=== PATIENT | male | born 1960 | race Caucasian/White ===

== ENCOUNTER 2023-12-28 11:20 | Outpatient (RCR) | payer MEDICARE, OTHER, SELFPAY ==
[2023-12-02 12:34] LABS: Glucose - Point of Care 110 mg/dl (70-99)
[2023-12-02 13:13] LABS: Glucose - Point of Care 118 mg/dl (70-99)
[2023-12-07 11:00] LABS: Glucose - Point of Care 114 mg/dl (70-99)
[2023-12-07 11:28] LABS: Glucose - Point of Care 115 mg/dl (70-99)
[2023-12-09 11:07] LABS: Glucose - Point of Care 155 mg/dl (70-99)
[2023-12-09 11:45] LABS: Glucose - Point of Care 99 mg/dl (70-99)
[2023-12-12 11:06] LABS: Glucose - Point of Care 106 mg/dl (70-99)
[2023-12-12 12:01] LABS: Glucose - Point of Care 103 mg/dl (70-99)
[2023-12-19 10:53] LABS: Glucose - Point of Care 163 mg/dl (70-99)
[2023-12-19 11:38] LABS: Glucose - Point of Care 106 mg/dl (70-99)
[2023-12-21 10:51] LABS: Glucose - Point of Care 103 mg/dl (70-99)
[2023-12-21 11:44] LABS: Glucose - Point of Care 94 mg/dl (70-99)
== END 2023-12-28 23:59 | disposition home or self-care (01) ==
LOC: CRHB 11:20
PROVIDERS: ATTENDING PHYSICIAN Surgery Vascular Surgery
DX: I70.711 Atherosclerosis of other type of bypass graft(s) of the extremities with intermittent claudication, right leg (principal); I25.10 Atherosclerotic heart disease of native coronary artery without angina pectoris; Z95.5 Presence of coronary angioplasty implant and graft
CPT/HCPCS: 82962; 93668

== ENCOUNTER 2024-01-16 11:00 | Outpatient (RCR) | payer MEDICARE, OTHER, SELFPAY | END 2024-01-16 23:59 | disposition home or self-care (01) | LOC: CRHB 11:00 | PROVIDERS: ATTENDING PHYSICIAN Surgery Vascular Surgery | DX: I70.711 Atherosclerosis of other type of bypass graft(s) of the extremities with intermittent claudication, right leg (principal); I25.10 Atherosclerotic heart disease of native coronary artery without angina pectoris; Z95.5 Presence of coronary angioplasty implant and graft | CPT/HCPCS: 93668 ==

== ENCOUNTER 2024-01-17 15:58 | Inpatient (IN) | payer MEDICARE, OTHER, SELFPAY ==
[2024-01-16] VITALS (10 sets, daily range): BP systolic 145–177; BP diastolic 77–84; BMI 26.8; BMI 25.4
--- NOTE | 2024-01-16 12:58 | ED.GENMED ---
History of Present Illness
General
Chief Complaint: Chest Pain
Source: patient
Exam Limitations: none
Time Seen by Provider: 01/16/24 12:06
Nursing documentation reviewed up to this point in time: agreed with
Travel History
Have you had any contact with someone who has COVID-19?: No
Do you have any symptoms of coronavirus? Fever > 100 degrees, chills, cough, shortness of breath, sore throat, loss of taste or smell, muscle aches, or headache?: No
History of Present Illness
History of Present Illness:
63-year-old male with history of CKD, NIDDM, HTN, NC with a cardiac stent in 2004 states he goes to cardiac rehab for PAD diagnosed in 09/2023. Patient was at cardiac rehab today on the elliptical machine at 11:00, felt he was really pushing it in
the setting was too high for the first 6 to 7 minutes, he developed nonradiating mid chest pain about 2 minutes into the exercise then he called someone over to have machine adjusted to less strenuous setting and at that time they took his blood
pressure and found it to be high at 170 systolic, he states the chest pain slowly subsided over the next 10 minutes. At its peak it was 6/10, it is now gone. No associated symptoms other than feeling fatigued.
Past History
Past History
ED Past Medical History: HTN, Hypercholesterolemia, NIDDM and NC (2004)
ED Past Surgical History: Cardiac (Stent 2004)
Social History
Tobacco: Former smoker
Alcohol: Occasional
Personal: Single
Living: alone
Review of Systems
Review of Systems
Allergies reviewed?: Yes
All Other Systems: ROS reviewed and negative except as documented in HPI and ROS
Constitutional: Reports fatigue; Denies fever
Respiratory: Denies trouble breathing
Cardiac: Reports chest pain; Denies diaphoresis, palpitations or syncope
ABD/GI: Denies abdominal pain, nausea or vomiting
Musculoskeletal: Reports no symptoms
Skin: Reports no symptoms
Neurological: Reports no symptoms
Phy Exam
Physical Exam
Physical Exam:
GENERAL: No acute distress. A&Ox3.
CONSTITUTIONAL: Afebrile.
EYES: Clear, conjunctivae normal
ENMT: moist mucus membranes, Pharynx nl
RESPIRATORY: Regular respirations, nonlabored, lungs clear.
CARDIOVASCULAR: Regular rate and rhythm, no murmurs, no rubs.
GI: Soft, nontender, normal BS
MUSCULOSKELETAL: Moves with ease. Well perfused.
SKIN: Warm, dry, pink
PSYCH: Normal mood and affect. Well kept, interactive and appropriate
NEUROLOGIC: Awake, alert and oriented. No focal neurological deficits
Scores
Heart Score for Chest Pain Patients
STEMI patient?: No
History: Slightly or Non-Suspicious
ECG: Normal
Age: >/= 65 years
Risk Factors: 1 or 2 Risk Factors
Troponin: </= Normal Limit
Heart Score for Chest Pain Patients: 3
Heart Score Risk: 2.5% MACE over next 6 weeks
Course
Orders/Labs/Results
Orders:
Orders
01/16/24 11:41
EKG [Electrocardiogram (*1)] Urgent
Reason for Study: Chest Pain
EKG- Treatment ONCE
01/16/24 12:57
Complete Blood Count/With Diff Urgent
Comprehensive Metabolic Panel Urgent
Troponin I Urgent
01/16/24 14:54
Troponin I Urgent
01/16/24 15:57
CARDIOLOGY CONSULT Urgent
Consulting Provider: Beni Clements
Was physician already notified: Yes
Reason for consult: chest pain
01/16/24 16:21
Admit/Transfer Patient As Directed
Co-Sign Provider:
Level of Care: Observation services
Assign to:: Telemetry
Physician / Group: shady
Diagnosis: stable angina
Reason for Telemetry: Arrhythmia
Date to Stop Telemetry: 01/19/24
Time to Stop Telemetry: 11:00
01/16/24 16:22
Code Status As Directed
Resuscitation Status: Full Code
01/16/24 17:00
0.9% Sodium Chloride 500 ml [Nss] 500 ml IV 100 mls/hr
01/19/24 11:00
DC Protocol for Telemetry ONCE
Abnormal Lab Results
01/16/24
12:57
RBC 4.10 L 10^6/uL
(4.70-6.10)
Hgb 11.6 L g/dL
(13.0-18.0)
Hct 33.4 L %
(39.0-52.0)
Lymphocytes % 20.4 L %
(20.5-51.1)
Carbon Dioxide 21 L mmol/L
(22-30)
BUN 32 H mg/dl
(9-20)
Creatinine 1.8 H mg/dL
(0.7-1.3)
Glucose 106 H mg/dl
(70-99)
01/16/24 12:57
01/16/24 12:57
Vital Signs
Initial and Last Documented VS:
Initial Vital Signs
Temp Pulse Resp BP Pulse Ox
98.1 F 73 16 157/79 98
01/16/24 11:38 01/16/24 11:38 01/16/24 11:38 01/16/24 11:38 01/16/24 11:38
Last Documented Vital Signs
Temp Pulse Resp BP Pulse Ox
98.1 F 71 16 160/80 96
01/16/24 11:38 01/16/24 16:00 01/16/24 16:00 01/16/24 16:00 01/16/24 16:00
MDM/Problems Addressed
Differential Diagnosis Includes:
ACS, angina, failing cardiac stent
MDM/Problems Addressed:
63-year-old male with history of NIDDM, HTN, NC with a cardiac stent in 2004 states he goes to cardiac rehab for PAD diagnosed in 09/2023. Patient was at cardiac rehab today on the elliptical machine felt he was really pushing it in the setting was
too high for the first 6 to 7 minutes, he developed nonradiating mid chest pain about 2 minutes into the exercise then he called someone over to have machine adjusted to less strenuous setting and at that time they took his blood pressure and found
it to be high at 170 systolic, he states the chest pain slowly subsided over the next 10 minutes. At its peak it was 6/10, it is now gone. No associated symptoms other than feeling fatigued.
EKG: NSR with PACs which are new otherwise no change
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
01/16/2024 1327 PM
CBC with no clinically significant abnormality
CMP: BUN/creat 32/1.8 (Sees a tray packer Dr. Anne at [place] for CKD, his creatinine is typically 1.5 per his medical records)
Troponin #1 normal
VLADIMIR Mendes from from [facility] cardiology in to evaluate patient, she will get back to me re: whether patient should be admitted
01/16/[address] Clements in and request admit to Hospitalist, gentle hydration, may cath tomorrow
Second Troponin normal
Hospitalist notified of admission
*Critical Care Note
Total Time (30-74mins, 75-104mins- exclusive of procedures): Not Applicable
ED Attending Note
-
Portions of this chart may have been created with voice recognition software.� Occasional wrong word or��sound alike� substitutions may have occurred due to the inherent limitations of voice recognition software.
Discharge Plan
Departure
Patient Disposition: Admit
Date of Disposition: 01/16/24
Time of Disposition: 15:54
Admit to: Telemetry
Presentation/result/management discussed w/ accepting MD/DO: Hospitalist
Condition: Fair
Discharge Problem:
Chest pain, CKD (chronic kidney disease), Diabetes
Prescriptions:
No Action
metformin 850 MG tablet
850 mg PO TID
aspirin 81 MG tablet,chewable
81 mg PO DAILY
sertraline 100 mg tablet
100 mg PO DAILY
cyanocobalamin (vitamin B-12) [Vitamin B-12] 1,000 mcg Tablet
1,000 mcg PO DAILY
lorazepam [Ativan] 0.5 mg Tablet
0.5 mg PO DAILY PRN (Reason: anxiety )
amlodipine 10 mg tablet
10 mg PO DAILY
hydralazine 50 mg tablet
50 mg PO TID
cholecalciferol (vitamin D3) [Vitamin D3] 25 mcg (1,000 unit) Capsule
25 mcg PO DAILY
rosuvastatin 10 mg tablet
10 mg PO DAILY
Artificial Tears([id number]) 0.1-0.3 % Drops
1 drp BOTH EYES QID PRN (Reason: dry eyes )
Eylea 2 mg/0.05 mL Syringe
2 mg INTRAVITREAL Q8W
Jardiance 10 mg tablet
10 mg PO DAILY
Veltassa 8.4 gram powder in packet
8.4 g PO HS
nitroglycerin 0.4 mg Tablet, Sublingual
0.4 mg SUBLINGUAL Q5-15M PRN (Reason: chest pain )
albuterol sulfate [ProAir HFA] 90 mcg/actuation Hfa Aerosol Inhaler
1 puff INHALATION Q4H PRN (Reason: shortness of breath )
Referrals:
aDnial Novak MD [Family Provider] -
Interventions
Interventions:
*Risk Screen - Suicide Last Done: 01/16/24 11:38
*General Assessment Last Done: 01/16/24 11:38
*Neglect/Abuse Screening Last Done: 01/16/24 11:38
ED- Fall Risk Assessment Last Done: 01/16/24 12:57
*ED COVID-19 Vaccine History Last Done: 01/16/24 12:57
ED- Cardiac Assessment Last Done: 01/16/24 12:57
[2024-01-16 13:09] LABS: % Basophils 0.6 % (0-2); % Eosinophils 1.2 % (0-6); % Immature Granulocytes 0.3 % (0-0.5); % Lymphocytes 20.4 % (20.5-51.1); % Monocytes 5.8 % (1.7-9.3); % Neutrophils 71.7 % (42.2-75.2); Absolute Basophils 0.1 10^3/uL (0-0.2); Absolute Eosinophils 0.1 10^3/uL (0-0.7); Absolute Lymphocytes 1.8 10^3/uL (1.2-3.4); Absolute Monocytes 0.5 10^3/uL (0.1-0.6); Absolute Neutrophils 6.4 10^3/uL (1.4-6.5); Hematocrit 33.4 % (39.0-52.0); Hemoglobin 11.6 g/dL (13.0-18.0); Mean Corp Hgb Conc. 34.7 g/dL (33.0-37.0); Mean Corpuscular Hgb 28.3 pg (27.0-31.0); Mean Corpuscular Volume 81.5 fL (80.0-94.0); Mean Platelet Volume 9.7 fL (7.4-10.4); Nucleated Red Blood Cells % 0 % (-); Platelet Count 237 10^3/uL (130-400); Red Cell Dist. Width 13.3 % (11.5-14.5); White Blood Cell Count 8.9 10^3/uL (4.8-10.8)
[2024-01-16 13:34] LABS: ALT (SGPT) 15 U/L (0-50); AST (SGOT) 22 U/L (17-59); Albumin 4.9 g/dl (3.5-5.0); Alkaline Phosphatase 48 U/L (38-126); Blood Urea Nitrogen 32 mg/dl (9-20); Calcium 9.7 mg/dl (8.4-10.2); Carbon Dioxide 21 mmol/L (22-30); Estimated Creatinine Clearance 41 ml/min; Glucose 106 mg/dl (70-99); Potassium 4.4 mmol/L (3.5-5.1); Sodium 138 mmol/L (135-145); Total Bilirubin 0.4 mg/dl (0.2-1.3); Total Protein 7.6 g/dl (6.3-8.2); Troponin I < 0.012 ng/ml; eGFR 41.26
[2024-01-16 13:52] LABS: Chloride 106 mmol/L (98-107)
--- NOTE | 2024-01-16 15:06 | CON.CAR ---
Addendum entered and electronically signed by Beni Clements MD 01/16/24 16:19:
I saw and examined the patient.
The [employer]'s note was reviewed and I agree with the note.
63-year-old male with history of coronary artery disease, distant history of coronary stenting 2005, peripheral arterial disease, CKD, hypertension and cognitive impairment) prior brain injury) who presents with chest discomfort. Patient was
exercising in cardiac rehab and using the NuStep machine when he developed midsternal chest discomfort. Machine required use of both arms and legs and he found it more difficult than other exercise he had done. Ultimately a staff member had him
discontinue his activity. Reportedly the discomfort was about 7 out of 10 in intensity and then spontaneously resolved with rest he was still having some discomfort when they wheeled him over to the emergency department. It reportedly resolved
although on further discussion with him it was difficult to tell if he had some faint residual chest sensations. Also difficult to tell if he had any muscular/skeletal discomfort related to the arm activities from earlier today. History is more
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 He has had some issues with fatigue he had a previous nuclear stress test with predominantly fixed
perfusion defects. Overall defects were felt to reflect prior infarction with some areas of residual ischemia. Patient was maintained on medical therapy since his last stress test in January 2023 but now has chest discomfort. Symptoms raise concern
for exertional angina could have been precipitated by activity that was more vigorous than usual. However considering prior history,, some abnormalities on prior stress testing and now chest discomfort would admission with possible plans for
cardiac catheterization if his other medical issues including his kidney disease remains stable. Patient's creatinine is 1.8 which appears to be above baseline of 1.5. 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
-Check serial troponins
-Continue aspirin.
-Treat hypertension. Given afternoon hydralazine which she is due for.
-Monitor creatinine.
-Gentle hydration in anticipation of possible catheterization.(500ml)
-If second troponin elevated then would add nitrates and consider addition of heparin.
- monitor for recurrent symptoms
Original Note:
Consultation
Consultation Request
Date/Time Consultation Requested: 01/16/24 2:15p
Date/Time Consultation Performed: 01/16/24 2:45p
Requesting Provider: ROBERT Miller
Performing Provider: ROBERT Alejandro for Dr. Clements
Reason for Consultation: chest pain
Medical History
-
Chief Complaint: chest pain
History of Present Illness:
Mr. Archer is a 63 yo male with CAD (PCI 2005), HTN, HLD, PAD (followed by Dr. Costa), CKD (followed by Dr. Venecia Flores), DM and cognitive impairment from a prior brain injury, who presents to the ER with chest pain. He was exercising at cardiac
rehab on an elliptical machine, when he developed midsternal chest pain during exercise. This was his first time on this exercise machine and he felt it was very strenuous/hard for him. He admits there was pain to all his muscles while exercising.
The chest pain eventually resolved on its own after resting. Currently he denies any chest pain. Initial troponin was < 0.012 and EKG with SR with PACs, anterior infarct, no acute ischemia.
Past Medical History
Past Medical History: Other (as above)
Past Surgical History: Other (cataract right eye)
Social History
Tobacco: Former Smoker (quit 30 years ago)
Alcohol: Occasional (rare - holidays)
Personal: Single
Living: Alone
Family History
Family History: Reviewed & Not Pertinent
Allergies / Home Medications
Allergy/AdvReac Type Severity Reaction Status Date / Time
NKA - No Known Allergies Allergy Unknown Uncoded 01/16/24 11:38
Medication Instructions Recorded Confirmed Type
aspirin 81 mg chewable tablet 81 mg PO DAILY Blood Clot 01/11/20 01/16/24 History
Prevention/Tx
metformin 850 mg tablet 850 mg PO TID diabetes 01/11/20 01/16/24 History
aflibercept 2 mg/0.05 mL 2 mg intravitreal Q8W Eye Condition 01/16/24 01/16/24 History
intravitreal syringe (Eylea)
albuterol sulfate 90 mcg/actuation 1 puff inhalation Q4H PRN 01/16/24 01/16/24 History
aerosol inhaler (ProAir HFA) shortness of breath
amlodipine 10 mg tablet 10 mg PO DAILY blood pressure 01/16/24 01/16/24 History
cholecalciferol (vitamin D3) 25 25 mcg PO DAILY supplement 01/16/24 01/16/24 History
mcg (1,000 unit) capsule (Vitamin
D3)
cyanocobalamin (vitamin B-12) 1,000 mcg PO DAILY Supplement 01/16/24 01/16/24 History
1,000 mcg tablet (Vitamin B-12)
dextran 70-hypromellose 0.1 %-0.3 1 drp BOTH EYES QID PRN dry eyes 01/16/24 01/16/24 History
% eye drops (Artificial Tears
(dextran 70-hypromellose))
empagliflozin 10 mg tablet 10 mg PO DAILY Diabetes 01/16/24 01/16/24 History
(Jardiance)
hydralazine 50 mg tablet 50 mg PO TID blood pressure 01/16/24 01/16/24 History
lorazepam 0.5 mg tablet (Ativan) 0.5 mg PO DAILY PRN anxiety 01/16/24 01/16/24 History
nitroglycerin 0.4 mg sublingual 0.4 mg sublingual Q5-15M PRN chest 01/16/24 01/16/24 History
tablet pain
patiromer calcium sorbitex 8.4 8.4 g PO HS high potassium levels 01/16/24 01/16/24 History
gram oral powder packet (Veltassa)
rosuvastatin 10 mg tablet 10 mg PO DAILY High Cholesterol 01/16/24 01/16/24 History
sertraline 100 mg tablet 100 mg PO DAILY depression 01/16/24 01/16/24 History
Review of Systems
-
History Source: Patient
All other systems: Negative unless noted
Physical Exam
Vital Signs
Temp Pulse Resp BP Pulse Ox
98.1 F 73 16 157/79 98
01/16/24 11:38 01/16/24 11:38 01/16/24 11:38 01/16/24 11:38 01/16/24 11:38
Lab Results
01/16/24 12:57
01/16/24 12:57
Troponin I < 0.012 ng/ml 01/16/24 12:57
Physical Exam
General: Well Developed and Well Nourished
HEENT: Normocephalic, Anicteric and Moist Mucous Membranes
Respiratory: Clear and Non Labored Respirations
Cardiac: S1/S2 and Regular Rhythm
Breast: Deferred by me
GI: Soft, Non Tender and Normal Bowel Sounds
Rectal: Deferred by Provider
Genito-urinary: No Costovertebral Tender
Musculoskeletal: No Clubbing, No Cyanosis and No Edema
Skin: Warm and Dry
Neuro: AO x 3
Psych: Calm
Impression / Plan
-
Chest pain - while exercising at cardiac rehab.
- resolved on its own, no recurrence.
- initial troponin <0.012, second is pending.
- Lexiscan test 02/2023 with fixed defects and mild residual ischemia.
- EKG w/o acute ischemia.
- if second troponin is abnormal then consider cath when creatinine improves.
HTN - resume outpatient meds and monitor.
PAD - stable.
- managed by Dr. Costa.
- exercise program with cardiac rehab.
HLD - stable on Crestor 10mg daily, continue.
- fatigue with Lipitor.
CKD - 3a.
- acute on chronic.
- followed by Dr. Cuadra at [facility].
- creatinine today is 1.8, last outpatient creatinine was 1.5.
Data Reviewed
-
EKG: Tracing Personally Visualized and interpreted (SR with PACs, anterior infarct, no acute ischemia.)
Medical Tests (Nuc Med, Echo etc): Report Reviewed by me (Rita 03/11/23: fixed defects with mild residual ischemia.)
Labs: Labs Reviewed by me
Old Records: Reviewed
[2024-01-16 15:38] LABS: Troponin I < 0.012 ng/ml
--- NOTE | 2024-01-16 16:26 | HPS.HSE ---
Family Physician
-
Family Physician: Danial Novak
Chief Complaint
-
chest pain
History of Present Illness
63-year-old male past medical history of CAD status post PCI in 2005, peripheral arterial disease, hypertension, hyperlipidemia, CKD, diabetes, cognitive impairment, cataracts, presenting to the emergency room with chest pain. Patient is attending
cardiac rehab for peripheral arterial disease of lower extremities which is being managed conservatively. Patient was exercising at cardiac rehab on elliptical machine when he developed midsternal chest pain during exercise. Pain described as
pressure without radiation. This was the first time on exercise machine and there was significant amount of resistance. Pain resolved on its own after resting. Denies any chest pain currently. Denies any shortness of breath or nausea or
dizziness or palpitations.
He denies smoking. He drinks alcohol very rarely. Denies any marijuana or any other drugs.
Mother and father had heart disease and mother had heart attack.
Medical History
Past Medical History
Past Medical History: Reports Other (CAD status post PCI in 2005, peripheral arterial disease, hypertension, hyperlipidemia, CKD, diabetes, cognitive impairment, cataracts)
Past Surgical History: Reports None
Social History
Tobacco: Non-smoker
Alcohol: Occasional
Drug: None
Family History
Family History: Not pertinent
Allergies / Home Medications
Allergies reflects when Allergies were last updated in [facility].
Home Medications with original date entered in [facility]
Allergy/Medication List:
Allergies
Allergy/AdvReac Type Severity Reaction Status Date / Time
NKA - No Known Allergies Allergy Unknown Uncoded 01/16/24 11:38
Home Medications
aspirin 81 mg chewable tablet 81 mg PO DAILY Blood Clot Prevention/Tx 01/11/20
metformin 850 mg tablet 850 mg PO TID diabetes 01/11/20
aflibercept 2 mg/0.05 mL intravitreal syringe (Eylea) 2 mg intravitreal Q8W Eye Condition 01/16/24
albuterol sulfate 90 mcg/actuation aerosol inhaler (ProAir HFA) 1 puff inhalation Q4H PRN shortness of breath 01/16/24
amlodipine 10 mg tablet 10 mg PO DAILY blood pressure 01/16/24
cholecalciferol (vitamin D3) 25 mcg (1,000 unit) capsule (Vitamin D3) 25 mcg PO DAILY supplement 01/16/24
cyanocobalamin (vitamin B-12) 1,000 mcg tablet (Vitamin B-12) 1,000 mcg PO DAILY Supplement 01/16/24
dextran 70-hypromellose 0.1 %-0.3 % eye drops (Artificial Tears (dextran 70-hypromellose)) 1 drp BOTH EYES QID PRN dry eyes 01/16/24
empagliflozin 10 mg tablet (Jardiance) 10 mg PO DAILY Diabetes 01/16/24
hydralazine 50 mg tablet 50 mg PO TID blood pressure 01/16/24
lorazepam 0.5 mg tablet (Ativan) 0.5 mg PO DAILY PRN anxiety 01/16/24
nitroglycerin 0.4 mg sublingual tablet 0.4 mg sublingual Q5-15M PRN chest pain 01/16/24
patiromer calcium sorbitex 8.4 gram oral powder packet (Veltassa) 8.4 g PO HS high potassium levels 01/16/24
rosuvastatin 10 mg tablet 10 mg PO DAILY High Cholesterol 01/16/24
sertraline 100 mg tablet 100 mg PO DAILY depression 01/16/24
Review of Systems
-
History Source: Patient
A 12 point ROS was completed and negative except as noted: Yes
Constitutional: Reports No Symptoms
EENT: Reports No Symptoms
Respiratory: Reports No Symptoms
Cardiac: Reports See HPI
Abdomen/GI: Reports No Symptoms
: Reports No Symptoms
Musculoskeletal: Reports No Symptoms
Skin: Reports No Symptoms
Neurological: Reports No Symptoms
Endocrine: Reports No Symptoms
Hematologic/Lymphatic: Reports No Symptoms
Psych: Reports No Symptoms
Physical Exam
Vital Signs
Vital Signs
Temp Pulse Resp BP Pulse Ox
98.1 F 71 16 160/80 96
01/16/24 11:38 01/16/24 16:00 01/16/24 16:00 01/16/24 16:00 01/16/24 16:00
Physical Exam
General: Well Developed, Well Nourished and No Apparent Distress
HEENT: NormoCephalic, Moist mucous membranes and Atraumatic
Respiratory: Clear
Cardiac: S1/S2 and Regular Rhythm; No Murmur or Rub
GI: Soft, Non Tender, Non Distended and Normal Bowel Sounds; No Organomegaly
Rectal: Deferred by Provider
Musculoskeletal: No Clubbing, No Cyanosis and No Edema
Skin: No Rash
Neuro: Nonfocal/grossly intact
Laboratory Results
-
01/16/24 12:57
01/16/24 12:57
Laboratory Results
Total Bilirubin 0.4 mg/dl (0.2-1.3) 01/16/24 12:57
AST 22 U/L (17-59) 01/16/24 12:57
ALT 15 U/L (0-50) 01/16/24 12:57
Alkaline Phosphatase 48 U/L (38-126) 01/16/24 12:57
Troponin I < 0.012 ng/ml 01/16/24 14:54
Data Reviewed
-
Lab Data: Labs Reviewed by me
Old Records: Reviewed
Impression/Plan
-
IMPRESSION:
PLAN:
# Stable angina
# History of CAD status post PCI in 2005
-Troponin negative x 2
-EKG shows sinus rhythm with PACs
-Lexiscan in February showed fixed defects and mild residual ischemia
-Continue aspirin
-Continue statin
-Cardiology following to determine if catheterization necessary
#VITOR on CKD 3A
-Creatinine 1.8 from 1.5 previously as outpatient
-Gentle hydration as per cardiology
-Follows Dr. Anne at [facility]
-Continue Veltassa
PAD
-Continue aspirin
Essential hypertension
-Continue amlodipine, hydralazine
Hyperlipidemia
Type 2 diabetes
-Continue Jardiance
-Hold metformin
-ISS
Cognitive impairment
Anxiety
-Continue as needed lorazepam
-Continue sertraline
Cataracts
Cardiac diet
DVT prophylaxis�heparin
Full code
[2024-01-16] MEDS: NSS 500 IV (16:43)
[2024-01-16] MEDS: NOVOLOG FLEXPEN-LOW RESISTANCE SC ×2 (19:26→20:13)
[2024-01-16 20:10] LABS: Glucose - Point of Care 89 mg/dl (70-99)
[2024-01-16] MEDS: HEPARIN 5000 UNITS SC (20:14)
[2024-01-16 21:13] LABS: Troponin I < 0.012 ng/ml
[2024-01-16 21:49] LABS: Glucose - Point of Care 229 mg/dl (70-99)
[2024-01-16] MEDS: APRESOLINE 50 MG PO (22:20)
[2024-01-17] VITALS (21 sets, daily range): BP systolic 126–182; BP diastolic 67–99
[2024-01-17 00:54] LABS: Troponin I < 0.012 ng/ml
[2024-01-17 06:31] LABS: Troponin I < 0.012 ng/ml
[2024-01-17 06:51] LABS: % Basophils 0.6 % (0-2); % Eosinophils 1.1 % (0-6); % Immature Granulocytes 0.3 % (0-0.5); % Lymphocytes 25.5 % (20.5-51.1); % Monocytes 7.4 % (1.7-9.3); % Neutrophils 65.1 % (42.2-75.2); Absolute Eosinophils 0.1 10^3/uL (0-0.7); Absolute Lymphocytes 1.8 10^3/uL (1.2-3.4); Absolute Monocytes 0.5 10^3/uL (0.1-0.6); Absolute Neutrophils 4.6 10^3/uL (1.4-6.5); Hematocrit 31.5 % (39.0-52.0); Hemoglobin 10.7 g/dL (13.0-18.0); Mean Corpuscular Hgb 28.5 pg (27.0-31.0); Mean Corpuscular Volume 83.8 fL (80.0-94.0); Mean Platelet Volume 10.1 fL (7.4-10.4); Nucleated Red Blood Cells % 0 % (-); Platelet Count 204 10^3/uL (130-400); Red Blood Cell Count 3.76 10^6/uL (4.70-6.10); Red Cell Dist. Width 13.2 % (11.5-14.5); White Blood Cell Count 7.1 10^3/uL (4.8-10.8)
[2024-01-17 07:04] LABS: ALT (SGPT) 11 U/L (0-50); AST (SGOT) 17 U/L (17-59); Albumin 3.7 g/dl (3.5-5.0); Alkaline Phosphatase 41 U/L (38-126); Blood Urea Nitrogen 31 mg/dl (9-20); Calcium 9.2 mg/dl (8.4-10.2); Carbon Dioxide 25 mmol/L (22-30); Chloride 106 mmol/L (98-107); Estimated Creatinine Clearance 43 ml/min; Glucose 108 mg/dl (70-99); Potassium 4.1 mmol/L (3.5-5.1); Sodium 141 mmol/L (135-145); Total Bilirubin 0.4 mg/dl (0.2-1.3); Total Protein 5.9 g/dl (6.3-8.2); eGFR 44.18
[2024-01-17 07:42] LABS: Glucose - Point of Care 105 mg/dl (70-99)
[2024-01-17] MEDS: NOVOLOG FLEXPEN-LOW RESISTANCE SC ×3 (07:56→18:06)
[2024-01-17] MEDS: VITAMIN B-12 1000 MCG PO (07:57)
[2024-01-17] MEDS: NORVASC 10 MG PO (07:57)
[2024-01-17] MEDS: LOW STRENGTH ASPIRIN 81 MG PO (07:57)
[2024-01-17] MEDS: CRESTOR 10 MG PO (07:57)
[2024-01-17] MEDS: APRESOLINE 50 MG PO ×3 (07:57→22:32)
[2024-01-17] MEDS: VITAMIN D3 (cholecalciferol) 25 MCG PO (07:57)
[2024-01-17] MEDS: JARDIANCE 10 MG PO (07:57)
[2024-01-17] MEDS: ZOLOFT 100 MG PO (07:57)
[2024-01-17] MEDS: HEPARIN 5000 UNITS SC ×2 (07:57→19:46)
[2024-01-17 08:31] LABS: Glycohemoglobin (HgbA1c) 6.1 % (4.0-5.6)
--- NOTE | 2024-01-17 09:05 | W.PN.UPDATE ---
Update Note
Progress Note Update
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 Reyna Anne. Dr. Cuadra was on vacation but I was able to speak with one of the nurses who relayed information regarding the patient's prior labs.
-Creatinine 03/01/2023 -1.6
-Creatinine 09/03/2023 - 1.8
-Creatinine 01/02/2024- 1.7.
Today's creatinine 1.7 is consistent with prior labs.
--- NOTE | 2024-01-17 09:18 | W.PN.HOSP.TC ---
Today's Communication/Plan
-
Continue to monitor renal status
after discussion with cardiology we will pursue cardiac catheterization
Assessment / Plan
Assessment / Plan
63-year-old male past medical history of CAD status post PCI in 2005, peripheral arterial disease, hypertension, hyperlipidemia, CKD, diabetes, cognitive impairment, cataracts, presenting to the emergency room with chest pain.� Patient is attending
cardiac rehab for peripheral arterial disease of lower extremities which is being managed conservatively.� Patient was exercising at cardiac rehab on elliptical machine when he developed midsternal chest pain during exercise.� Pain described as
pressure without radiation.� This was the first time on exercise machine and there was significant amount of resistance.� Pain resolved on its own after resting.� Denies any chest pain currently.� Denies any shortness of breath or nausea or
dizziness or palpitations.
He denies smoking.� He drinks alcohol very rarely.� Denies any marijuana or any other drugs.
Mother and father had heart disease and mother had heart attack.
# Stable angina
# History of CAD status post PCI in 2005
-Troponin negative x 3
-EKG shows sinus rhythm with PACs
-Lexiscan in February showed fixed defects and mild residual ischemia
-Continue aspirin
-Continue statin
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
#VITOR on CKD 3A
-Creatinine 1.8 /1.7 at prior baselines
-Gentle hydration as per cardiology
-Follows Dr. Anne at [place]
-Continue Veltassa
PAD
-Continue aspirin
Essential hypertension
-Continue amlodipine, hydralazine
Hyperlipidemia
Type 2 diabetes
-Continue Jardiance
-Hold metformin
-ISS
Cognitive impairment
Anxiety
-Continue as needed lorazepam
-Continue sertraline
Cataracts
Cardiac diet
DVT prophylaxis�heparin
Full code
Anticipated Discharge: Within 24 hours
Subjective/Interval History
-
Date of Service: January 17, 2024
No for chest discomfort his prior chest discomfort after he got off the elliptical lasted approximately 20 to 25 minutes overall history is vague.
Objective Data
-
Labs:
Laboratory Results
01/17/24
05:52
WBC 7.1
Hgb 10.7 L
Hct 31.5 L
Plt Count 204
Sodium 141
Potassium 4.1
Chloride 106
Carbon Dioxide 25
BUN 31 H
Creatinine 1.7 H
Glucose 108 H
Calcium 9.2
Total Bilirubin 0.4
AST 17
ALT 11
Alkaline Phosphatase 41
Vital Signs:
Vital Signs
Temp Pulse Resp BP Pulse Ox
98.8 F 76 18 144/81 98
01/17/24 07:00 01/17/24 07:57 01/17/24 07:00 01/17/24 07:57 01/17/24 07:00
I&O
01/16/24 01/17/24 01/18/24
06:59 06:59 06:59
Intake Total 480 / 480
Balance 480 / 480
Review of Systems
-
Unable to obtain full review of systems at this time due to: Dementia (Some cognitive issues with short-term memory)
History Source: Patient
Constitutional: Reports No Symptoms
EENT: Reports No Symptoms Reported
Respiratory: Reports No Symptoms
Cardiac: Reports No Symptoms; Denies Chest Pain (Resolved chest discomfort)
Neuro: Reports No Symptoms
Endocrine: Reports No Symptoms
Hematologic / Lymphatic: Reports No Symptoms
Physical Exam
-
General: Well Developed
HEENT: Normocephalic
Respiratory: Clear to Auscultation
Cardiac: Regular Rhythm and S1/S2
GI: Soft
Musculoskeletal: No Clubbing, No Cyanosis and No Edema
Skin: Warm and IV Access / Catheter Site
Neuro: Awake
Data Reviewed
-
Total Time Spent with Patient (in minutes): 45
Medical Tests (Nuc Med, Echo etc): Report Reviewed by me
Labs: Labs Reviewed by me and Discussed with Physician
--- NOTE | 2024-01-17 09:34 | W.PN.CD ---
Today's Communication / Plan
-
-
Cardica cath today(Tue)
npo x sips clears
cont w asa as prescribed
Impression / Plan
-
Chest pain - while exercising at cardiac rehab.
- resolved on its own, no recurrence.
- Troponin negative x 3; - EKG w/o acute ischemia.
- Lexiscan test 02/2023 with mostly fixed defects and small area ischemia.
- With recent Abn stress test, and now w CP w exertion, we rec cath - cont w asa
-Cr of 1.7 is stable
HTN - resume outpatient meds and monitor.
PAD - stable.
- managed by Dr. Costa.
- exercise program with cardiac rehab.
HLD - stable on Crestor 10mg daily, continue.
- fatigue with Lipitor.
CKD - 3a.
- acute on chronic.
- followed by Dr. Cuadra at [place] - baseline is 1.5-1.7
- creatinine today is 1.7,
Hx of remote closed head injury
chronic mild-mod cognitive impairment
Physical Exam
Vital Signs/Labs
Vital Signs
Temp Pulse Resp BP Pulse Ox
98.8 F 76 18 144/81 98
01/17/24 07:00 01/17/24 07:57 01/17/24 07:00 01/17/24 07:57 01/17/24 07:00
01/16/24 01/17/24 01/18/24
06:59 06:59 06:59
Actual Weight 172 lb 2 oz
01/17/24 05:52
01/17/24 05:52
LAB Results
01/16/24 01/16/24 01/16/24
12:57 14:54 20:44
Troponin I < 0.012 < 0.012 < 0.012
02/20/24 02/20/24
00:15 05:52
Troponin I < 0.012 < 0.012
Physical Exam
Constitutional: No acute distress
Cardiovascular: Rhythm & rate is regular and Pedal edema is absent
Respiratory: Respiratory effort normal and Lungs clear to auscul.
Data Reviewed
-
Date of Service: January 17, 2024
Medical Decision Making: Reviewed Test Results
EKG: Tracing Personally Visualized and interpreted
Medical Tests (PFT, Pathology etc): Discussed with Physician
Labs: Labs Reviewed by me
Old Records: Reviewed
[2024-01-17] MEDS: NSS 500 IV (11:24)
[2024-01-17 11:25] LABS: Glucose - Point of Care 100 mg/dl (70-99)
--- NOTE | 2024-01-17 14:06 | ITS.CL.CATH ---
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
Cardiac Catheterization
Procedure Report:
CARDIAC CATHETERIZATION REPORT
Date of Procedure: 01/17/2024
Referring: Beni Clements MD
Indication: Unstable angina (negative troponins)
HEMODYNAMIC DATA
AO: 112/64
LV: Not done
LEFT VENTRICULOGRAPHY: Not done
CORONARY ANGIOGRAPHY
Dominance: Right
Left Main: Normal
Ramus: There is a large ramus intermedius which has 70% proximal stenosis.
LAD: The LAD has an ostial/proximal stent which has diffuse severe (>90%) in-stent restenosis. There is 60-70% distal LAD stenosis. There is competitive flow from a distal RV marginal collateral to the apical LAD
Circumflex: There is a single obtuse marginal branch originating from the left main coronary artery with 70% ostial/proximal stenosis. Following the procedure we were able to pull up the angiogram from 2005 which demonstrated an anomalous
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 This vessel was not imaged today
RCA: The RCA is a large dominant vessel with 60-70% mid stenosis. There is 60% distal RCA stenosis proximal to the takeoff of the PDA. The RV acute marginal collateralizes the apical LAD. The PDA and posterolateral branches have mild luminal
disease.
Closure Device: None-the procedure was performed via the right radial artery. The William's test was normal prior to the procedure.
Radiation (mGy): 250
DAP (cm2.Gy): 22.2
Fluoroscopy time: 1.9 minutes
CONCLUSIONS
1: Multivessel CAD as described
2: The anatomy is poorly suited to PCI and inpatient evaluation for CABG has been recommended with grafting of the LAD, ramus intermedius, OM1, and RPDA
3. Total contrast used 24 cc Visipaque
Copy to: Janel Aviles MD, Danial Novak MD
Nickolas Mandujano MD, [facility], [facility]
--- NOTE | 2024-01-17 14:40 | CONSULT.CT ---
Consultation
-
Date/Time Consultation Requested: 01/17
Date/Time Consultation Performed: 01/17
Requesting Provider: Dr. Mandujano
Performing Provider: Darcy Krishna for Dr. Talley
Reason for Consultation: CABG evaluation
Patient History
Physicians
Family Physician: Danial Novak
Outpatient Pearler: Maria Eugenia Aviles
Inpatient Pearler: Matheus Mandujano
History of Present Illness
Mr. Archer is a 63 year old right hand dominant male with known CAD and prior stents, who was admitted via the emergency department 01/26/24 with midsternal, non-radiating chest pain while exercising on an elliptical machine. Patient is
attending cardiac rehab for peripheral arterial disease of lower extremities which is being managed conservatively.� Ruled out for RI (serial Troponin <0.012). Brought to the bundle tier and labeler today which revealed multivessel disease (report pending).
Past Medical History
Past Medical History: Asthma and Other
CAD w/prior stents 2005
PAD (B/L infrapopliteal stenosis)
CKDIIIb
T2DM x 15 years
diabetic retinopathy-legally blind
diabetic neuropathy
cataract right eye
HTN
anxiety/depression
neurocognitive impairment-no formal work-up
Past Surgical History
cardiac stents
Social History
Alcohol: Occasional
Drug: None
Tobacco: Non-Smoker
Personal: Single (NOK is brother)
Living: Alone
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
Allergies
Allergy/AdvReac Type Severity Reaction Status Date / Time
No Known Allergies Allergy Unverified 01/16/24 18:54
Home Medications
Medication Instructions Recorded Confirmed Type
aspirin 81 mg chewable tablet 81 mg PO DAILY Blood Clot 01/11/20 01/16/24 History
Prevention/Tx
metformin 850 mg tablet 850 mg PO TID diabetes 01/11/20 01/16/24 History
aflibercept 2 mg/0.05 mL 2 mg intravitreal Q8W Eye Condition 01/16/24 01/16/24 History
intravitreal syringe (Eylea)
albuterol sulfate 90 mcg/actuation 1 puff inhalation Q4H PRN 01/16/24 01/16/24 History
aerosol inhaler (ProAir HFA) shortness of breath
amlodipine 10 mg tablet 10 mg PO DAILY blood pressure 01/16/24 01/16/24 History
cholecalciferol (vitamin D3) 25 25 mcg PO DAILY supplement 01/16/24 01/16/24 History
mcg (1,000 unit) capsule (Vitamin
D3)
cyanocobalamin (vitamin B-12) 1,000 mcg PO DAILY Supplement 01/16/24 01/16/24 History
1,000 mcg tablet (Vitamin B-12)
dextran 70-hypromellose 0.1 %-0.3 1 drp BOTH EYES QID PRN dry eyes 01/16/24 01/16/24 History
% eye drops (Artificial Tears
(dextran 70-hypromellose))
empagliflozin 10 mg tablet 10 mg PO DAILY Diabetes 01/16/24 01/16/24 History
(Jardiance)
hydralazine 50 mg tablet 50 mg PO TID blood pressure 01/16/24 01/16/24 History
lorazepam 0.5 mg tablet (Ativan) 0.5 mg PO DAILY PRN anxiety 01/16/24 01/16/24 History
nitroglycerin 0.4 mg sublingual 0.4 mg sublingual Q5-15M PRN chest 01/16/24 01/16/24 History
tablet pain
patiromer calcium sorbitex 8.4 8.4 g PO HS high potassium levels 01/16/24 01/16/24 History
gram oral powder packet (Veltassa)
rosuvastatin 10 mg tablet 10 mg PO DAILY High Cholesterol 01/16/24 01/16/24 History
sertraline 100 mg tablet 100 mg PO DAILY depression 01/16/24 01/16/24 History
Review of Systems
-
History Source: Patient
General: Reports No Symptoms
HEENT: Reports No Symptoms
Respiratory: Reports No Symptoms
Cardiac: Reports Chest Pain (exertional while on elliptical machine)
Abdomen/GI: Reports No Symptoms
: Reports No Symptoms
Musculoskeletal: Reports No Symptoms
Skin: Reports No Symptoms
Neurological: Reports No Symptoms
Vascular: Reports PVD (B/L LE)
Physical Exam
Vital Signs
Temp 97.9 F 01/17/24 11:00
Temp route: Oral 01/17/24 11:00
Pulse 80 01/17/24 14:10
Rhythm: Normal sinus rhythm 01/17/24 09:44
Resp Rate 20 01/17/24 13:34
Blood pressure 135/67 01/17/24 14:02
Blood pressure extremity used: Left upper arm 01/17/24 13:34
Position: Sitting 01/17/24 13:03
MAP (cuff-Valarie Monitor) 90 01/17/24 14:02
SaO2 95 01/17/24 14:10
Oxygen Mode of Delivery Room air 01/17/24 13:34
Can the patient verbally communicate their pain? Yes 01/17/24 14:18
Actual Weight 78.075 kg 01/16/24 18:26
Body Mass Index (BMI) 25.4 01/16/24 18:26
Labs
01/17/24 05:52
01/17/24 05:52
Hemoglobin A1c 6.1 % (4.0-5.6) H 01/17/24 05:52
Troponin I < 0.012 ng/ml 01/17/24 05:52
Exam
General: Well Developed, Well Nourished and No Apparent Distress
HEENT: Normocephalic, Anicteric, Moist Mucous Membranes, Atraumatic and PERRLA
Respiratory: Clear
Cardiac: S1/S2 and Regular Rhythm
GI: Soft, Non Tender, Non Distended and Normal Bowel Sounds
Rectal: Deferred by Provider
Skin: Warm and Dry
Neuro: AO x 3, No Motor Deficits and Nonfocal/Grossly Intact
Extremities: Pulses (+1/4 PT B/L)
Lymph: No Lymphadenopathy
Psych: Calm
Assessment / Plan
-
63 year old male admitted with acute coronary syndrome r/o RI, found to have multivessel disease on cath
- Dr Talley to review imaging and discuss with cardiology and patient
- neurology consult for history of neuro-cognitive impairment
- trend UO/creatinine d/t CKDIIIb
Data Reviewed
-
EKG: Report Reviewed by me and Discussed with Physician
Project Management Director: Report Reviewed by me and Discussed with Physician
Radiology: Report Reviewed by me and Discussed with Physician
Labs: Labs Reviewed by me and Discussed with Physician
--- NOTE | 2024-01-17 15:59 | CM ---
PT was at cardiac cath could not complete IA. machine repair person brother did not want to provide information for IA.
--- NOTE | 2024-01-17 16:12 | PTCARENOTE ---
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 D/I, distal pulses palpable. monitor showing NSR/ST, VSS. downloaded signs from the past 22 hours, patient was on 3 west. cardiothoracic surgeon in talking with family.
[2024-01-17 17:57] LABS: Glucose - Point of Care 133 mg/dl (70-99)
[2024-01-17 21:44] LABS: Glucose - Point of Care 102 mg/dl (70-99)
--- NOTE | 2024-01-17 22:18 | PTCARENOTE ---
Pt rec'd at change of shift awake alert no complaints. right radial site with DDI. weak but palpable pulse. Sinus on telemetry. call meier within reach.
--- NOTE | 2024-01-18 04:24 | DOWNTIME ---
There was a [employer] Client Box Repairer Downtime on 01/18/2024 from 0111 to 01/18/2024 at 0405. Downtime documentation of patient's care, including medication administrations, has been reconciled in the electronic record per guidelines. Refer to the
patient's paper chart under the miscellaneous tab to see printed paper medication records and downtime forms.
[2024-01-18 04:45] VITALS: BMI 25.2
[2024-01-18 04:50] VITALS: BP 162/86
[2024-01-18 05:58] LABS: Hematocrit 35.7 % (39.0-52.0); Hemoglobin 11.9 g/dL (13.0-18.0); Mean Corp Hgb Conc. 33.3 g/dL (33.0-37.0); Mean Corpuscular Hgb 27.7 pg (27.0-31.0); Mean Corpuscular Volume 83.2 fL (80.0-94.0); Mean Platelet Volume 10.1 fL (7.4-10.4); Platelet Count 258 10^3/uL (130-400); Red Blood Cell Count 4.29 10^6/uL (4.70-6.10); Red Cell Dist. Width 13.3 % (11.5-14.5); White Blood Cell Count 8.6 10^3/uL (4.8-10.8)
[2024-01-18 06:19] LABS: INR 1.12; PT 14.2 Sec (11.4-14.6)
[2024-01-18 06:20] LABS: APTT 32.6 Sec (23.4-35.0)
[2024-01-18 06:33] LABS: ALT (SGPT) 12 U/L (0-50); AST (SGOT) 19 U/L (17-59); Albumin 4.2 g/dl (3.5-5.0); Alkaline Phosphatase 52 U/L (38-126); Blood Urea Nitrogen 26 mg/dl (9-20); Calcium 9.4 mg/dl (8.4-10.2); Carbon Dioxide 24 mmol/L (22-30); Chloride 104 mmol/L (98-107); Direct Bilirubin 0.4 mg/dl (0.0-0.4); Estimated Creatinine Clearance 43 ml/min; Glucose 110 mg/dl (70-99); Sodium 141 mmol/L (135-145); Total Bilirubin 0.4 mg/dl (0.2-1.3); Total Protein 6.6 g/dl (6.3-8.2); eGFR 44.18
[2024-01-18 07:26] VITALS: BP 149/74
--- NOTE | 2024-01-18 07:51 | W.PN.HOSP.TC ---
Today's Communication/Plan
-
Continue to monitor renal status post cath
Timetable for CABG as per CV surgery
Assessment / Plan
Assessment / Plan
63-year-old male past medical history of CAD status post PCI in 2005, peripheral arterial disease, hypertension, hyperlipidemia, CKD, diabetes, cognitive impairment, cataracts, presenting to the emergency room with chest pain.� Patient is attending
cardiac rehab for peripheral arterial disease of lower extremities which is being managed conservatively.� Patient was exercising at cardiac rehab on elliptical machine when he developed midsternal chest pain during exercise.� Pain described as
pressure without radiation.� This was the first time on exercise machine and there was significant amount of resistance.� Pain resolved on its own after resting.� Denies any chest pain currently.� Denies any shortness of breath or nausea or
dizziness or palpitations.
He denies smoking.� He drinks alcohol very rarely.� Denies any marijuana or any other drugs.
Mother and father had heart disease and mother had heart attack.
# Stable angina
# History of CAD status post PCI in 2005
-Troponin negative x 3
-EKG shows sinus rhythm with PACs
-Lexiscan in February showed fixed defects and mild residual ischemia
-Continue aspirin
-Continue statin
-Cardiac cath performed for way shows four-vessel multivessel disease/will require CABG this admission timing as per CV surgery
-Cardiology following
#VITOR on CKD 3A
-Creatinine 1.8 /1.7 at prior baselines
-Gentle hydration as per cardiology
-Follows Dr. Anne at [place]
-Continue Veltassa
-Continue to monitor renal status postcatheterization
PAD
-Continue aspirin
-Bilateral infrapopliteal stenosis
-Being treated conservatively and had been undergoing rehab and exercise at time of event
Essential hypertension
-Continue amlodipine, hydralazine
Hyperlipidemia
Type 2 diabetes
-Continue Jardiance
-Hold metformin
-ISS
Cognitive impairment
-In relation to history of closed head trauma
Anxiety
-Continue as needed lorazepam
-Continue sertraline
Cataracts
Cardiac diet
DVT prophylaxis�heparin
Full code
Anticipated Discharge: 24 - 48 hours
Subjective/Interval History
-
Date of Service: January 18, 2024
Patient has been asymptomatic without H reference of any chest pressure as prior no respiratory distress. Aware of findings on cardiac cath yesterday.
Objective Data
-
Labs:
Laboratory Results
01/18/24
04:56
WBC 8.6
Hgb 11.9 L
Hct 35.7 L
Plt Count 258 D
PT 14.2
INR 1.12
APTT 32.6
Sodium 141
Potassium 4.0
Chloride 104
Carbon Dioxide 24
BUN 26 H
Creatinine 1.7 H
Glucose 110 H
Calcium 9.4
Total Bilirubin 0.4
AST 19
ALT 12
Alkaline Phosphatase 52
Vital Signs:
Vital Signs
Temp Pulse Resp BP Pulse Ox
98.3 F 88 20 162/86 96
01/18/24 07:23 01/18/24 04:50 01/18/24 07:23 01/18/24 04:50 01/18/24 07:23
I&O
01/17/24 01/18/24 01/19/24
06:59 06:59 06:59
Intake Total 480 / 480 1100 / 1100
Balance 480 / 480 1100 / 1100
Review of Systems
-
History Source: Patient
All other systems: Reviewed and negative
Physical Exam
-
General: Well Developed
HEENT: Normocephalic
Respiratory: Clear to Auscultation
Cardiac: Regular Rhythm
GI: Soft, Nontender and Nondistended
Neuro: Awake, Alert and Oriented
Psych: Calm
Data Reviewed
-
Total Time Spent with Patient (in minutes): 56
Diagnostic Radiology: Report Reviewed by me
Labs: Labs Reviewed by me (Creatinine stable at 1.7 continue to monitor/hemoglobin 11.9 white count normal at 8.6/blood sugar 102)
[2024-01-18 08:04] LABS: Erythrocyte Sed Rate 8 mm/hour (0-20)
--- NOTE | 2024-01-18 08:16 | W.PN.CD ---
Today's Communication / Plan
-
will intensify statin
await cab determination
echo
Impression / Plan
-
CAD:
-MVD in patient CAB rec'd.
-evaluation to consider candidacy for CAB underway
-continue aspirin and will trial increased statin
-intolernt to BB and ACEI
HTN - resume outpatient meds and monitor.
PAD - stable.
- managed by Dr. Costa.
- exercise program with cardiac rehab.
HLD - stable on Crestor 10mg daily, continue.
- fatigue with Lipitor.
CKD - 3a.
- acute on chronic.
- followed by Dr. Cuadra at [place] - baseline is 1.5-1.7
- creatinine today is 1.7, and atble
Hx of remote closed head injury
chronic mild-mod cognitive impairment
Subjective:
he has no cp or sob. Dr Knutson in the room with him currently
Cath 01/17/24:
CORONARY ANGIOGRAPHY
Dominance: Right
Left Main: Normal
Ramus: There is a large ramus intermedius which has 70% proximal stenosis.
LAD: The LAD has an ostial/proximal stent which has diffuse severe (>90%) in-stent restenosis.� There is 60-70% distal LAD stenosis.� There is competitive flow from a distal RV marginal collateral to the apical LAD
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
RCA: The RCA is a large dominant vessel with 60-70% mid stenosis.� There is 60% distal RCA stenosis proximal to the takeoff of the PDA.� The RV acute marginal collateralizes the apical LAD.� The PDA and posterolateral branches have mild luminal
disease.
Closure Device: None-the procedure was performed via the right radial artery.� The William's test was normal prior to the procedure.
CONCLUSIONS
1: Multivessel CAD as described
2: The anatomy is poorly suited to PCI and inpatient evaluation for CABG has been recommended with grafting of the LAD, ramus intermedius, OM1, and RPDA
3.� Total contrast used 24 cc Visipaque
Physical Exam
Vital Signs/Labs
Vital Signs
Temp Pulse Resp BP Pulse Ox
98.3 F 88 20 162/86 96
01/18/24 07:23 01/18/24 04:50 01/18/24 07:23 01/18/24 04:50 01/18/24 07:23
01/17/24 01/18/24 01/19/24
06:59 06:59 06:59
Actual Weight 78.075 kg 77.4 kg
01/18/24 04:56
01/18/24 04:56
PT 14.2 Sec (11.4-14.6) 01/18/24 04:56
INR 1.12 01/18/24 04:56
APTT 32.6 Sec (23.4-35.0) 01/18/24 04:56
LAB Results
01/16/24 01/16/24 01/16/24
12:57 14:54 20:44
Troponin I < 0.012 < 0.012 < 0.012
01/17/24 01/17/24
00:15 05:52
Troponin I < 0.012 < 0.012
Physical Exam
Constitutional: No acute distress
Cardiovascular: Rhythm & rate is regular, Pedal edema is absent, JVD pressure is normal, Systolic murmur absent and Diastolic murmur absent
Respiratory: Respiratory effort normal, Lungs clear to auscul., Wheeze Absent, Crackles Absent and Rhonchi Absent
Data Reviewed
-
Date of Service: January 18, 2024
EKG: Other (sinus)
[2024-01-18 08:18] LABS: Urine Albumin Trace (Neg - Trace); Urine Bilirubin Negative (Negative); Urine Character Clear (Clear); Urine Color Yellow; Urine Glucose 3+ (Negative); Urine Ketone Negative (Negative); Urine Leukocyte Negative (Negative); Urine Nitrite Negative (Negative); Urine Occult Blood Negative (Negative); Urine Urobilinogen Negative (Neg - 1+)
--- NOTE | 2024-01-18 08:25 | CON.NEURO4 ---
Addendum entered and electronically signed by Xavier Knutson MD 01/18/24 11:03:
Studies reviewed.
I have personally examined the patient. I reviewed and agree with the THRASHER FEEDER's Note.
My addenda:
Awake, alert, interactive. No acute distress.
Speech intact.
Follows 2-step requests w/o difficulty. No tremor.
Absent visual acuity on the right, limited visual field evaluation on the left.
Extra-ocular movements grossly intact.
Facial movements full and symmetric. Hearing intact to normal conversational volume.
Normal UE movements bilaterally.
Neck: full ROM.
Chest: no dyspnea
Heart: no JVD
Ext: (-) Clubbing, (-) Cyanosis, (-) Edema
IMPRESSIONS/RECOMMENDATIONS:
Gradual decline of cognition by report
Differential diagnosis is mild cognitive impairment patient with significant visual loss secondary to retinopathy as well as prior vitamin B12 deficiency
No indication that absence of potentially life-saving surgical procedures would be indicated by patient's current neurological status
Continue current medications
Continue vitamin B12 replacement
Outpatient neuropsychological evaluation
Case management evaluation due to financial disturbances
D/W patient /friend by phone
All questions answered.
Will continue to follow as outpatient.
Original Note:
Consultation - Neurology 4
-
CONSULTING PHYSICIAN: Xavier Knutson MD
REFERRING PHYSICIAN: CT Surgery/Divya Chamberlain PA-C
DICTATED BY: ROBERT Freeman
DATE/TIME OF REQUEST: 01/17/24
DATE/TIME OF CONSULTATION: 01/18/24
Reason for Consultation: Cognitive Impairment
History of Present Illness:
This is a 63-year-old male who has presented to the hospital on 01/16/24 with report of chest pain while on the elliptical at cardiac rehab. Cardiac cath on 01/17/24 revealed multivessel disease. Neurology is consulted for cognitive evaluation prior
to CABG intervention. Patient is known to our Neurology service and had an outpatient cognitive evaluation by Dr. Shaw in 2019.
From previous outpatient evaluation by Dr. Shaw on 08/12/20:
'59 year-old male presents for evaluation for issues with memory. He has issues remembering conversations as well as names and what happens during TV shows. He 'often answers things inappropriately_ _told his doctor that he had macular degeneration
instead of retinopathy.' However, he does really well on multiple choice tests. He 'has problems with open ended questions.' He is easily frustrated. He lost his job in April 2019 after 'making some bad choices and issues with his vision.' He went to
the [facility] after this happened. He 'has been undergoing a lot of changes in his medical care since this time but cannot go alone to doctor's appts because he can't remember details.' He also 'doesn't remember things even after 30 mins_
_he called for refills on many of his medications and did not remember doing that.'
�������No history of seizure, LOC or loss of awareness. He is accompanied by a friend today who states that he 'sometimes goes into emotional overload and doesn't respond.'
�������His friend notes a change in his personality_ _he 'was depressed, was having trouble paying bills.' He would get upset and angry and 'didn't want to deal with things.' He feels that he 'isn't as outgoing as he used to be' and is 'having a
hard time dealing with the change in his vision.' He is being treated with depression and anxiety.
�������His MRI brain was ordered by Dr. Novak but has not been approved yet.
�������He had an event where he 'couldn't remember his way home, he couldn't see very well and had a severe migraine and felt like everything was spinning.' He was 'found by a corrections officer and was escorted to a parking lot to wait til mireya to
drive home. He waited in the parking lot for at least 8 hours.' He is being followed by ophthalmology for diabetic retinopathy and 'is nearly blind in his R eye.' He recently had a cataract operation for this. He is no longer driving.
�������He did 4 years of 'community college but didn't graduate.' His last job was working at [employer]. He worked there for 11 years. He previously did 'odd jobs and took care of his parents.'
�������Brother with possible dementia at age 64.
�������He also reports 1 migraine per month.
�������INTERVAL HX: since his last appointment, he feels that his memory continues to decline. He often 'goes into her room and cannot remember why is there and forgets discussions 1-2 hours after they occur.' He feels that his depression and
anxiety is stable. He continues to not drive. He is following with retina specialist for diabetic retinopathy and reports that his left eye vision has mildly improved but his right eye vision is unchanged. His B12 level was found to be low in
December at 281 and he has subsequently been taking supplementation. His TSH was normal. MRI brain showed no clear abnormalities or clear atrophy. He also had a normal EEG done in July at [facility]. he states he did not have
neuropsychological testing done as he was told that only [facility] takes his insurance and that the test is about 8 hours long and would still be too expensive for him. He is aide who accompanied him today also believes he would not
tolerate a test of this length.'
Since previous evaluation in 2019, patient and his friend report that his memory issues have persisted but there has been no drastic worsening of memory. He has not driven since 2019 due to being legally blind. His friend Anna has been helping him
with finances since 2019. MRI brain and EEG were negative. He was recommended by Dr. Shaw to complete neuropsychological or at least Neurotrax testing as an outpatient but he never followed up with this due to lack of insurance at the time.
Currently, he denies any headache, dizziness, speech/swallow difficulty, nausea, numbness, weakness, chest pain, palpitations, and shortness of breath.
Past Medical History: HTN, HLD, [place], CAD, NIDDM, PAD (b/l infrapopliteal stenosis), CKD 3b, diabetic retinopathy (legally blind), diabetic neuropathy, mild cognitive impairment
Surgical History: Cardiac stent
Family History: Reviewed and noncontributory.
Social History: Denies tobacco and illicit drug use. Occasional alcohol.
Allergies: No known allergies.
Home Medications: See below.
Review of Symptoms:
Patient denies any fever, headache, chest pain, shortness of breath, GI or symptoms.
�Per the HPI.�All systems are reviewed negative except above.
Physical Exam:
The patient is afebrile, abdomen is nondistended, breathing is unlabored, skin is warm and dry, no edema. PVD discoloration BLE.
Neurologic Examination:
The patient is awake, alert and oriented x 3. Next holiday- [facility] Andre[place] day. Most recent holiday- ', then '. He is able to follow commands and answer questions appropriately. There is no aphasia or dysarthria. On
cranial nerve assessment, pupils are 3 mm bilateral, round and reactive to light and accommodation. Visual lebron are absent at baseline in both eyes. Extraocular movements are intact. Facial sensations are intact and bilaterally symmetrical, there
is no facial asymmetry. Hearing is intact bilaterally to normal conversation volume. Tongue palate and uvula are midline. Sternocleidomastoid strengths are full bilaterally. Motor strengths are 5/5 bilateral upper and lower extremities on medical
research Everly scale. There is no drift or involuntary movement noted. There was no extinction noted on double simultaneous stimulation. Coordination is intact by finger to nose bilaterally. Gait is steady. Romberg negative.
Lab Results: See below.
Neuro Imaging:
1. MRI Brain 08/07/20: No acute intracranial abnormality.
2. EEG 07/31/20: No seizures were noted during the recording.
Differentials for the patient's presentation include:
1. Mild cognitive impairment. Unclear if this is a pseudo-cognitive impairment in the setting of depression/anxiety.
2. From a neurological standpoint, no barriers to CABG intervention.
Recommendations:
-Patient needs to follow-up with Neurology as an outpatient and complete Neurotrax and/or neuropsychological testing.
-Patient would benefit from outpatient speech therapy for cognitive training.
-Please contact our Neurology service with any questions/concerns.
Discussed patient care with: Dr. Knutson, the patient
Vital Signs and Labs
-
Vital Signs and Labs:
Vital Signs
Temp Pulse Resp BP Pulse Ox
98.3 F 72 20 149/74 96
01/18/24 07:23 01/18/24 09:16 01/18/24 07:23 01/18/24 09:16 01/18/24 07:23
Lab Results
01/18/24 04:56
01/18/24 04:56
PT 14.2 Sec (11.4-14.6) 01/18/24 04:56
INR 1.12 01/18/24 04:56
APTT 32.6 Sec (23.4-35.0) 01/18/24 04:56
Sodium 141 mmol/L (135-145) 01/18/24 04:56
Potassium 4.0 mmol/L (3.5-5.1) 01/18/24 04:56
BUN 26 mg/dl (9-20) H 01/18/24 04:56
Glucose 110 mg/dl (70-99) H 01/18/24 04:56
Calcium 9.4 mg/dl (8.4-10.2) 01/18/24 04:56
Medications
-
Active Medications
Generic Name Dose Route Start Last Admin
Trade Name Freq PRN Reason Stop Dose Admin
Acetaminophen 650 mg 01/17/24 12:52
Acetaminophen 325 Mg Tablet PO 02/14/24 12:51
Q4HPRN PRN
mild pain
Albuterol 1 puff 01/16/24 18:17
Albuterol Hfa [90 Mcg/Dose] Inhaler INH 02/13/24 18:16
R Q4HPRN PRN
shortness of breath
Protocol
Amlodipine Besylate 10 mg 01/17/24 08:00 01/18/24 09:16
Amlodipine 10 Mg Tablet PO 02/14/24 07:59 10 mg
DAILY REGINO Administration
Artificial Tears 1 drops 01/16/24 19:00
Artificial Tears Pf (Refresh) 10 Drop Droperette BOTH EYES 02/13/24 18:59
QID PRN
dry eyes
Aspirin 81 mg 01/17/24 08:00 01/18/24 09:17
Aspirin 81 Mg Chewable Tablet PO 02/14/24 07:59 81 mg
DAILY REGINO Administration
Cholecalciferol 25 mcg 01/17/24 08:00 01/18/24 09:15
Cholecalciferol (Vitamin D3) 25 Mcg Tablet (1,000 Units) PO 02/14/24 07:59 25 mcg
DAILY REGINO Administration
Cyanocobalamin 1,000 mcg 01/17/24 08:00 01/18/24 09:17
Cyanocobalamin 1,000 Mcg Tablet PO 02/14/24 07:59 1,000 mcg
DAILY REGINO Administration
Dextrose 12.5 grams 01/16/24 18:17
Dextrose 50% (0.5 Grams/Ml) 50 Ml Syringe IV 02/13/24 18:16
[id number] PRN
hypoglycemia
Protocol
Empagliflozin 10 mg 01/17/24 08:00 01/18/24 09:17
Empagliflozin (Jardiance) 10 Mg Tablet PO 02/14/24 07:59 10 mg
DAILY REGINO Administration
Glucagon 1 mg 01/16/24 18:17
Glucagon 1 Mg Vial IM 02/13/24 18:16
PRN PRN
hypoglycemia
Protocol
Heparin Sodium 5,000 units 01/16/24 20:00 01/18/24 09:17
Heparin 5,000 Units/Ml 1 Ml Vial SC 02/13/24 19:59 5,000 units
Q12 REGINO Administration
Hydralazine HCl 50 mg 01/16/24 22:00 01/18/24 09:16
Hydralazine 50 Mg Tablet PO 02/13/24 21:59 50 mg
TID REGINO Administration
Sodium Chloride 1,000 mls @ 0 mls/hr 01/17/24 13:00
Nss IV 01/18/24 12:53
PER PROTOCOL REGINO
Protocol
Per Protocol
Insulin Aspart 0 units 01/16/24 18:17 01/18/24 09:15
Insulin Aspart Low Resistance 300 Units/3 Ml Pen.Injctr SC 02/13/24 18:16 Not Given
AC REGINO
Protocol
Lorazepam 0.5 mg 01/16/24 18:17
Lorazepam 0.5 Mg Tablet PO 02/13/24 18:16
DAILY PRN
anxiety
Nitroglycerin 0.4 mg 01/16/24 18:17
Nitroglycerin 0.4 Mg Sl Tablet SL 02/13/24 18:16
Q5MPRN PRN
chest pain SEE LABEL COMMENTS
Patiromer Calcium 8.4 grams 01/16/24 22:00
Sorbitex [Veltassa] PO 02/13/24 21:59
8.4 Gram Powder In HS REGINO
Packet
Rosuvastatin Calcium 20 mg 01/18/24 08:00 01/18/24 09:17
Rosuvastatin (Crestor) 20 Mg Tablet PO 02/15/24 07:59 20 mg
DAILY REGINO Administration
Sertraline HCl 100 mg 01/17/24 08:00 01/18/24 09:17
Sertraline 100 Mg Tablet PO 02/14/24 07:59 100 mg
DAILY REGINO Administration
Home Medications
Medication Instructions Recorded
aspirin 81 mg chewable tablet 81 mg PO DAILY Blood Clot 01/11/20
Prevention/Tx
metformin 850 mg tablet 850 mg PO TID diabetes 01/11/20
aflibercept 2 mg/0.05 mL 2 mg intravitreal Q8W Eye Condition 01/16/24
intravitreal syringe (Eylea)
albuterol sulfate 90 mcg/actuation 1 puff inhalation Q4H PRN 01/16/24
aerosol inhaler (ProAir HFA) shortness of breath
amlodipine 10 mg tablet 10 mg PO DAILY blood pressure 01/16/24
cholecalciferol (vitamin D3) 25 25 mcg PO DAILY supplement 01/16/24
mcg (1,000 unit) capsule (Vitamin
D3)
cyanocobalamin (vitamin B-12) 1,000 mcg PO DAILY Supplement 01/16/24
1,000 mcg tablet (Vitamin B-12)
dextran 70-hypromellose 0.1 %-0.3 1 drp BOTH EYES QID PRN dry eyes 01/16/24
% eye drops (Artificial Tears
(dextran 70-hypromellose))
empagliflozin 10 mg tablet 10 mg PO DAILY Diabetes 01/16/24
(Jardiance)
hydralazine 50 mg tablet 50 mg PO TID blood pressure 01/16/24
lorazepam 0.5 mg tablet (Ativan) 0.5 mg PO DAILY PRN anxiety 01/16/24
nitroglycerin 0.4 mg sublingual 0.4 mg sublingual Q5-15M PRN chest 01/16/24
tablet pain
patiromer calcium sorbitex 8.4 8.4 g PO HS high potassium levels 01/16/24
gram oral powder packet (Veltassa)
rosuvastatin 10 mg tablet 10 mg PO DAILY High Cholesterol 01/16/24
sertraline 100 mg tablet 100 mg PO DAILY depression 01/16/24
--- NOTE | 2024-01-18 09:01 | PTCARENOTE ---
U/A obtained and sent to lab. chest xray completed as ordered. Neuro was in to see patient.
[2024-01-18 09:08] LABS: Glucose - Point of Care 105 mg/dl (70-99)
[2024-01-18] MEDS: VITAMIN D3 (cholecalciferol) 25 MCG PO (09:15)
[2024-01-18] MEDS: NOVOLOG FLEXPEN-LOW RESISTANCE SC ×3 (09:15→17:58)
[2024-01-18] MEDS: NORVASC 10 MG PO (09:16)
[2024-01-18] MEDS: APRESOLINE 50 MG PO ×3 (09:16→22:45)
[2024-01-18] MEDS: LOW STRENGTH ASPIRIN 81 MG PO (09:17)
[2024-01-18] MEDS: VITAMIN B-12 1000 MCG PO (09:17)
[2024-01-18] MEDS: HEPARIN 5000 UNITS SC ×2 (09:17→20:41)
[2024-01-18] MEDS: JARDIANCE 10 MG PO (09:17)
[2024-01-18] MEDS: CRESTOR 20 MG PO (09:17)
[2024-01-18] MEDS: ZOLOFT 100 MG PO (09:17)
--- NOTE | 2024-01-18 09:25 | CM ---
spoke to pt and friend ( Anna) in room. pt lives alone in an indep apt at [facility]. he tells me he is legally blind, has some cognitive deficits, however i could not determine this when talking to him. he has a HEAD CONTROL CLERK M-F for 4 hrs thru [facility] community
services. we briefly discussed preop CABG teaching. he would like to go back home after dc, not to a rehab. Anna will be back later today and full preop teaching will be done then.
[2024-01-18 09:28] LABS: Ferritin 30.6 ng/ml (17.9-464.0)
[2024-01-18 10:00] LABS: Folate 7.3 ng/ml (2.76-20); Vitamin B12 1000 pg/ml (239-931)
[2024-01-18 10:55] LABS: TSH Reflex To Free T4 4.06 uIU/ml (0.47-4.68)
[2024-01-18 11:39] VITALS: BP 141/73
[2024-01-18 13:10] LABS: Glucose - Point of Care 121 mg/dl (70-99)
--- NOTE | 2024-01-18 13:35 | CM ---
CM following for DC planning needs.
Met w/ patient, friend Anna at bedside to complete pre-op teaching for anticipated CABG.
Reviewed pre and post op routines.
Discussed post op restrictions to include lifting, driving, flying and sternal precautions.
Cardiac Surgery booklet provided.
Discussed post op appointments, Cardiac Rehab and visit from [facility] RN.
Anticipated DC plan is for home w/ CT Transitional Care RN. Pt. currently has STOCK ASSOCIATE M-F for x4 hours/ d thru [facility] Community Services. Pt. and friend believe that this may be able to be increased, if needed. We also discussed possibility of rehab if
warranted. Goal is for home w/ CT RN.
Pt. also requesting information on Advanced Directive/Living Will.
Provided paperwork to pt. and friend and offered assist as needed.
CM will cont. to follow.
[2024-01-18 15:38] VITALS: BP 134/73
--- NOTE | 2024-01-18 17:19 | PTCARENOTE ---
patients family member brought in his [facility], sent to pharmacy to identify and code.
[2024-01-18 17:58] LABS: Glucose - Point of Care 101 mg/dl (70-99)
[2024-01-18 20:28] VITALS: BP 134/79
[2024-01-18] MEDS: NON-FORMULARY ITEM PO ×3 (20:42→21:18)
[2024-01-18] MEDS: NON-FORMULARY ITEM 8.40000000000000036 GRAMS PO (21:17)
[2024-01-18 21:54] LABS: Glucose - Point of Care 120 mg/dl (70-99)
[2024-01-18 22:47] VITALS: BP 152/93
--- NOTE | 2024-01-19 | PTCARENOTE ---
assumed care of patient at the change of shift. AAOx3. legally blind. denies any cp/sob. independent in the room. SR on tele 80s. bp stable. R radial site dressing removed. 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 reviewed plan of care with patient and
verbalized understanding. call meier within reach; calls appropriately. answered all questions.
patient own medication Veltassa in the refrigerator. per patient-has to be refrigerated.
[2024-01-19 04:47] VITALS: BP 141/77
[2024-01-19 06:03] LABS: Blood Urea Nitrogen 30 mg/dl (9-20); Calcium 9.6 mg/dl (8.4-10.2); Carbon Dioxide 25 mmol/L (22-30); Chloride 105 mmol/L (98-107); Estimated Creatinine Clearance 43 ml/min; Glucose 107 mg/dl (70-99); Potassium 3.9 mmol/L (3.5-5.1); Sodium 140 mmol/L (135-145); eGFR 44.18
--- NOTE | 2024-01-19 07:30 | W.PN.HOSP.TC ---
Today's Communication/Plan
-
Will continue to monitor renal function
Assessment / Plan
Assessment / Plan
63-year-old male past medical history of CAD status post PCI in 2005, peripheral arterial disease, hypertension, hyperlipidemia, CKD, diabetes, cognitive impairment, cataracts, presenting to the emergency room with chest pain.� Patient is attending
cardiac rehab for peripheral arterial disease of lower extremities which is being managed conservatively.� Patient was exercising at cardiac rehab on elliptical machine when he developed midsternal chest pain during exercise.� Pain described as
pressure without radiation.� This was the first time on exercise machine and there was significant amount of resistance.� Pain resolved on its own after resting.� Denies any chest pain currently.� Denies any shortness of breath or nausea or
dizziness or palpitations.
He denies smoking.� He drinks alcohol very rarely.� Denies any marijuana or any other drugs.
Mother and father had heart disease and mother had heart attack.
# Stable angina
# History of CAD status post PCI in 2005
-Troponin negative x 3
-EKG shows sinus rhythm with PACs
-Lexiscan in February showed fixed defects and mild residual ischemia
-Continue aspirin
-Continue statin
-Cardiac cath performed shows four-vessel multivessel disease/will require CABG this admission timing as per CV surgery
-Cardiology following
#VITOR on CKD 3A
-Creatinine 1.8 /1.7 at prior baselines
-Gentle hydration as per cardiology
-Follows Dr. Anne at [facility]
-Continue Veltassa
-Continue to monitor renal status postcatheterization
PAD
-Continue aspirin
-Bilateral infrapopliteal stenosis
-Being treated conservatively and had been undergoing rehab and exercise at time of event
Essential hypertension
-Continue amlodipine, hydralazine
Hyperlipidemia
Type 2 diabetes
-Continue Jardiance
-Hold metformin
-ISS
Cognitive impairment
-In relation to history of closed head trauma
Anxiety
-Continue as needed lorazepam
-Continue sertraline
Cataracts
Cardiac diet
DVT prophylaxis�heparin
Full code
Anticipated Discharge: > 48 hours
Subjective/Interval History
-
Date of Service: January 19, 2024
No complaints overnight no recurrent chest pain or shortness of breath
Objective Data
-
Labs:
Laboratory Results
01/19/24
04:49
Sodium 140
Potassium 3.9
Chloride 105
Carbon Dioxide 25
BUN 30 H
Creatinine 1.7 H
Glucose 107 H
Calcium 9.6
Vital Signs:
Vital Signs
Temp Pulse Resp BP Pulse Ox
98.0 F 79 16 141/77 96
01/19/24 04:52 01/19/24 04:47 01/19/24 04:52 01/19/24 04:47 01/19/24 04:52
I&O
01/18/24 01/19/24 01/20/24
06:59 06:59 06:59
Intake Total 1100 / 1100 450 / 450
Balance 1100 / 1100 450 / 450
Review of Systems
-
All other systems: Not reviewed unless documented
Physical Exam
-
General: Well Developed
HEENT: Normocephalic
Respiratory: Clear to Auscultation
Cardiac: Regular Rhythm
Musculoskeletal: No Clubbing
Skin: Warm and IV Access / Catheter Site
Neuro: Awake and Alert
Psych: Intact Judgement/Insight (Mildly impaired short-term memory)
[2024-01-19 07:39] VITALS: BP 132/64
[2024-01-19 07:58] LABS: Glucose - Point of Care 136 mg/dl (70-99)
[2024-01-19] MEDS: NOVOLOG FLEXPEN-LOW RESISTANCE SC ×2 (08:08→17:38)
[2024-01-19] MEDS: LOW STRENGTH ASPIRIN 81 MG PO (08:52)
[2024-01-19] MEDS: JARDIANCE 10 MG PO (08:52)
[2024-01-19] MEDS: NORVASC 10 MG PO (08:52)
[2024-01-19] MEDS: VITAMIN D3 (cholecalciferol) 25 MCG PO (08:52)
[2024-01-19] MEDS: CRESTOR 20 MG PO (08:52)
[2024-01-19] MEDS: ZOLOFT 100 MG PO (08:52)
[2024-01-19] MEDS: APRESOLINE 50 MG PO ×3 (08:52→21:43)
[2024-01-19] MEDS: VITAMIN B-12 1000 MCG PO (08:52)
[2024-01-19] MEDS: HEPARIN 5000 UNITS SC ×2 (08:53→20:34)
--- NOTE | 2024-01-19 09:30 | W.PN.CD ---
Today's Communication / Plan
-
no anigina
continue medical therapy as he is assessed for CABG
Impression / Plan
-
CAD:
-severe multivessel cad
- CABG evaluation in progress
-continue aspirin
-intolernt to BB and ACEI
HTN - resume outpatient meds and monitor.
PAD - stable.
- managed by Dr. Costa. -
HLD - Crestor
- fatigue with Lipitor.
CKD - 3a.
- chronic and stable
- followed by Dr. Scottie Anne at [facility] - baseline is 1.5-1.7
- creatinine today is 1.7, and stable compared to outpatient labs over the past year
Hx of remote closed head injury
chronic cognitive impairment
- neuro consulted this admit. see note.
Subjective:
he has no cp or sob. Dr Knutson in the room with him currently
Cath 01/17/24:
CORONARY ANGIOGRAPHY
Dominance: Right
Left Main: Normal
Ramus: There is a large ramus intermedius which has 70% proximal stenosis.
LAD: The LAD has an ostial/proximal stent which has diffuse severe (>90%) in-stent restenosis.� There is 60-70% distal LAD stenosis.� There is competitive flow from a distal RV marginal collateral to the apical LAD
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
RCA: The RCA is a large dominant vessel with 60-70% mid stenosis.� There is 60% distal RCA stenosis proximal to the takeoff of the PDA.� The RV acute marginal collateralizes the apical LAD.� The PDA and posterolateral branches have mild luminal
disease.
Closure Device: None-the procedure was performed via the right radial artery.� The William's test was normal prior to the procedure.
CONCLUSIONS
1: Multivessel CAD as described
2: The anatomy is poorly suited to PCI and inpatient evaluation for CABG has been recommended with grafting of the LAD, ramus intermedius, OM1, and RPDA
3.� Total contrast used 24 cc Visipaque
Physical Exam
Vital Signs/Labs
Vital Signs
Temp Pulse Resp BP Pulse Ox
98.0 F 77 16 132/64 95
01/19/24 07:00 01/19/24 08:00 01/19/24 07:00 01/19/24 07:39 01/19/24 07:00
01/18/24 01/19/24 01/20/24
06:59 06:59 06:59
Actual Weight 77.4 kg
01/18/24 04:56
01/19/24 04:49
PT 14.2 Sec (11.4-14.6) 01/18/24 04:56
INR 1.12 01/18/24 04:56
APTT 32.6 Sec (23.4-35.0) 01/18/24 04:56
LAB Results
01/16/24 01/16/24 01/16/24
12:57 14:54 20:44
Troponin I < 0.012 < 0.012 < 0.012
01/17/24 01/17/24
00:15 05:52
Troponin I < 0.012 < 0.012
Physical Exam
Constitutional: No acute distress
Cardiovascular: Rhythm & rate is regular
Respiratory: Respiratory effort normal
GI: Soft
Neuro/Psych: Alert
Data Reviewed
-
Date of Service: January 19, 2024
Medical Decision Making: Reviewed Test Results
EKG: Report Reviewed by me
Medical Tests (PFT, Pathology etc): Report Reviewed by me
Labs: Labs Reviewed by me
--- NOTE | 2024-01-19 10:02 | PTCARENOTE ---
Received patient this morning ambulating in his room, denies any pain or discomfort. Radial site SOUR BLEACHING PLEATER, no bleeding or signs of a hematoma.
--- NOTE | 2024-01-19 11:54 | CM ---
CM following for DC planning needs.
Plan for CABG.
Anticipated DC plan is for home w/ CT Transitional Care RN.
Will cont. to follow.
[2024-01-19 11:55] VITALS: BP 145/79
[2024-01-19 12:16] LABS: Glucose - Point of Care 232 mg/dl (70-99)
[2024-01-19] MEDS: NOVOLOG FLEXPEN-LOW RESISTANCE 2 UNITS SC (12:51)
--- NOTE | 2024-01-19 13:09 | PTCARENOTE ---
Lunchtime accu check 232, covered with 2units of novolog as ordered.
[2024-01-19 17:38] VITALS: BP 162/89
[2024-01-19 17:39] LABS: Glucose - Point of Care 95 mg/dl (70-99)
--- NOTE | 2024-01-19 17:47 | W.PN.UPDATE ---
Update Note
Progress Note Update
No angina. Surgical timing TBD, continue with surgical work up. STS calculation to follow.
[2024-01-19 19:04] VITALS: BP 139/76
[2024-01-19] MEDS: SENOKOT-S 1 TABLET PO (21:42)
[2024-01-19] MEDS: NON-FORMULARY ITEM 8.40000000000000036 GRAMS PO (21:42)
[2024-01-19 21:43] VITALS: BP 149/77
[2024-01-19 21:52] LABS: Glucose - Point of Care 130 mg/dl (70-99)
--- NOTE | 2024-01-20 00:21 | PTCARENOTE ---
Received pt at handoff. AOx3. Assessment noted as documented. Tele- SR. R wrist MANNEQUIN MOUNTER. Pt requesting stool softener. Hailey notified. Kamilla ordered and administered. See MAR. No other complaints at this time. Ambulatory in room; steady gait.
Currently in bed; call renea w/in reach.
[2024-01-20 04:49] VITALS: BP 137/84
[2024-01-20 05:08] LABS: Hematocrit 31.5 % (39.0-52.0); Hemoglobin 10.7 g/dL (13.0-18.0); Mean Corpuscular Hgb 27.9 pg (27.0-31.0); Mean Corpuscular Volume 82.2 fL (80.0-94.0); Mean Platelet Volume 9.7 fL (7.4-10.4); Platelet Count 216 10^3/uL (130-400); Red Blood Cell Count 3.83 10^6/uL (4.70-6.10); Red Cell Dist. Width 13.3 % (11.5-14.5); White Blood Cell Count 7.4 10^3/uL (4.8-10.8)
[2024-01-20 05:22] LABS: APTT 33.2 Sec (23.4-35.0); INR 1.03; PT 13.6 Sec (11.4-14.6)
[2024-01-20 05:27] LABS: ALT (SGPT) 17 U/L (0-50); AST (SGOT) 25 U/L (17-59); Albumin 3.9 g/dl (3.5-5.0); Alkaline Phosphatase 44 U/L (38-126); Blood Urea Nitrogen 31 mg/dl (9-20); Calcium 9.6 mg/dl (8.4-10.2); Carbon Dioxide 22 mmol/L (22-30); Chloride 106 mmol/L (98-107); Direct Bilirubin 0.4 mg/dl (0.0-0.4); Estimated Creatinine Clearance 43 ml/min; Glucose 119 mg/dl (70-99); Potassium 4.1 mmol/L (3.5-5.1); Sodium 138 mmol/L (135-145); Total Bilirubin 0.4 mg/dl (0.2-1.3); Total Protein 6.6 g/dl (6.3-8.2); eGFR 44.18
[2024-01-20 07:07] VITALS: BP 163/80
[2024-01-20 07:10] LABS: Glucose - Point of Care 122 mg/dl (70-99)
--- NOTE | 2024-01-20 07:27 | PTCARENOTE ---
[facility] Patient is alert and oriented x4, pleasant. Wears glasses. Per patient, he is legally blind in the L eye but can see partially. Blind in R eye. Denies pain/discomfort. SA/NSR with first degree heart block. HR
60s. Audible heart tones. BP 163/80. Palpable pulses, weakly palpable dorsalis pedal pulses. No edema. PIV maintained. RA. Oxygen saturation 96%. Upon auscultation, lung sounds clear. Abdomen round. +BS. No c/o constipation. Voids in BR
spontaneously. Ambulates in room independently. R wrist puncture site is open to air. Will continue to monitor.
[2024-01-20] MEDS: NOVOLOG FLEXPEN-LOW RESISTANCE SC ×3 (07:34→16:45)
[2024-01-20] MEDS: APRESOLINE 50 MG PO ×3 (07:53→22:11)
[2024-01-20] MEDS: HEPARIN 5000 UNITS SC ×2 (07:53→19:58)
[2024-01-20] MEDS: VITAMIN B-12 1000 MCG PO (07:53)
[2024-01-20] MEDS: NORVASC 10 MG PO (07:53)
[2024-01-20] MEDS: ZOLOFT 100 MG PO (07:53)
[2024-01-20] MEDS: CRESTOR 20 MG PO (07:53)
[2024-01-20] MEDS: LOW STRENGTH ASPIRIN 81 MG PO (07:53)
[2024-01-20] MEDS: VITAMIN D3 (cholecalciferol) 25 MCG PO (07:53)
[2024-01-20] MEDS: JARDIANCE 10 MG PO (07:53)
--- NOTE | 2024-01-20 07:57 | W.PN.HOSP.TC ---
Today's Communication/Plan
-
CT surgery for timetable on CABG
Medical management: Remained stable
Assessment / Plan
Assessment / Plan
63-year-old male past medical history of CAD status post PCI in 2005, peripheral arterial disease, hypertension, hyperlipidemia, CKD, diabetes, cognitive impairment, cataracts, presenting to the emergency room with chest pain.� Patient is attending
cardiac rehab for peripheral arterial disease of lower extremities which is being managed conservatively.� Patient was exercising at cardiac rehab on elliptical machine when he developed midsternal chest pain during exercise.� Pain described as
pressure without radiation.� This was the first time on exercise machine and there was significant amount of resistance.� Pain resolved on its own after resting.� Denies any chest pain currently.� Denies any shortness of breath or nausea or
dizziness or palpitations.
He denies smoking.� He drinks alcohol very rarely.� Denies any marijuana or any other drugs.
Mother and father had heart disease and mother had heart attack.
# Stable angina
# History of CAD status post PCI in 2005
-Troponin negative x 3
-EKG shows sinus rhythm with PACs
-Lexiscan in February showed fixed defects and mild residual ischemia
-Continue aspirin
-Continue statin
-Cardiac cath performed shows four-vessel multivessel disease/will require CABG this admission timing as per CV surgery
-Cardiology following
#VITOR on CKD 3A
-Creatinine 1.8 /1.7 at prior baselines
-Gentle hydration as per cardiology
-Follows Dr. Anne at [place]
-Continue Veltassa
-Continue to monitor renal status postcatheterization
PAD
-Continue aspirin
-Bilateral infrapopliteal stenosis
-Being treated conservatively and had been undergoing rehab and exercise at time of event
Essential hypertension
-Continue amlodipine, hydralazine
Hyperlipidemia
Type 2 diabetes
-Continue Jardiance
-Hold metformin
-ISS
Cognitive impairment
-In relation to history of closed head trauma
Anxiety
-Continue as needed lorazepam
-Continue sertraline
Cataracts
Cardiac diet
DVT prophylaxis�heparin
Full code
Anticipated Discharge: 24 - 48 hours
Subjective/Interval History
-
Date of Service: January 20, 2024
No anginal symptoms slept well
Objective Data
-
Labs:
Laboratory Results
01/20/24
04:54
WBC 7.4
Hgb 10.7 L
Hct 31.5 L
Plt Count 216
PT 13.6
INR 1.03
APTT 33.2
Sodium 138
Potassium 4.1
Chloride 106
Carbon Dioxide 22
BUN 31 H
Creatinine 1.7 H
Glucose 119 H
Calcium 9.6
Total Bilirubin 0.4
AST 25
ALT 17
Alkaline Phosphatase 44
Vital Signs:
Vital Signs
Temp Pulse Resp BP Pulse Ox
98.1 F 73 16 163/80 96
01/20/24 07:05 01/20/24 07:53 01/20/24 07:05 01/20/24 07:53 01/20/24 07:05
I&O
01/19/24 01/20/24 01/21/24
06:59 06:59 06:59
Intake Total 450 / 450 480 / 480
Balance 450 / 450 480 / 480
Review of Systems
-
All other systems: Not reviewed unless documented
Physical Exam
-
General: Well Developed
HEENT: Normocephalic
Respiratory: Clear to Auscultation
Cardiac: Regular Rhythm
GI: Soft and Nontender
Musculoskeletal: No Edema
Data Reviewed
-
Total Time Spent with Patient (in minutes): 45
Labs: Labs Reviewed by me (Renal numbers remain stable post Creatinine 1.7)
--- NOTE | 2024-01-20 08:48 | W.PN.CD ---
Today's Communication / Plan
-
continue medicla therapy for CAD as patient is evaluted by CT surgery for CABG
Impression / Plan
-
CAD:
-severe multivessel cad
- CABG evaluation in progress
-continue aspirin
-intolernt to BB and ACEI
HTN - resume outpatient meds and monitor.
PAD - stable.
- managed by Dr. Costa. -
HLD - Crestor
- fatigue with Lipitor.
CKD - 3a.
- chronic and stable
- followed by Dr. Scottie Anne at [place] - baseline is 1.5-1.7
- creatinine today is 1.7, and stable compared to outpatient labs over the past year
Hx of remote closed head injury
chronic cognitive impairment
- neuro consulted this admit. see note.
Subjective:
he has no cp or sob. Dr Knutson in the room with him currently
Cath 01/17/24:
CORONARY ANGIOGRAPHY
Dominance: Right
Left Main: Normal
Ramus: There is a large ramus intermedius which has 70% proximal stenosis.
LAD: The LAD has an ostial/proximal stent which has diffuse severe (>90%) in-stent restenosis.� There is 60-70% distal LAD stenosis.� There is competitive flow from a distal RV marginal collateral to the apical LAD
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
RCA: The RCA is a large dominant vessel with 60-70% mid stenosis.� There is 60% distal RCA stenosis proximal to the takeoff of the PDA.� The RV acute marginal collateralizes the apical LAD.� The PDA and posterolateral branches have mild luminal
disease.
Closure Device: None-the procedure was performed via the right radial artery.� The William's test was normal prior to the procedure.
CONCLUSIONS
1: Multivessel CAD as described
2: The anatomy is poorly suited to PCI and inpatient evaluation for CABG has been recommended with grafting of the LAD, ramus intermedius, OM1, and RPDA
3.� Total contrast used 24 cc Visipaque
Physical Exam
Vital Signs/Labs
Vital Signs
Temp Pulse Resp BP Pulse Ox
98.1 F 73 16 163/80 96
01/20/24 07:05 01/20/24 07:53 01/20/24 07:05 01/20/24 07:53 01/20/24 07:05
01/20/24 04:54
01/20/24 04:54
PT 13.6 Sec (11.4-14.6) 01/20/24 04:54
INR 1.03 01/20/24 04:54
APTT 33.2 Sec (23.4-35.0) 01/20/24 04:54
Physical Exam
Constitutional: No acute distress
Cardiovascular: Rhythm & rate is regular
Respiratory: Respiratory effort normal
GI: Soft
Data Reviewed
-
Date of Service: January 20, 2024
Medical Tests (PFT, Pathology etc): Report Reviewed by me
--- NOTE | 2024-01-20 10:16 | W.PN.UPDATE ---
Update Note
Progress Note Update
Procedure Type:�Isolated CABG
PERIOPERATIVE OUTCOME ESTIMATE %
Operative Mortality 1.23%
Morbidity & Mortality 6.63%
Stroke 1.18%
Renal Failure 2.21%
Reoperation 2.36%
Prolonged Ventilation 2.69%
Deep Sternal Wound Infection 0.167%
Long Hospital Stay (>14 days) 4%
Short Hospital Stay (<6 days)* 48%
*higher values reflect a better outcome
Plan for Cabg next week
[2024-01-20 11:05] VITALS: BP 121/75
--- NOTE | 2024-01-20 12:22 | CM ---
CM following for DC planning needs.
Met w/ patient at bedside. Pt. is expecting CT Surgery on , 01/23.
Patient has no questions or concerns at this time.
Will follow closely for DC planning needs. Goal is for home w/ CT Transitional Care RN.
[2024-01-20 12:23] LABS: Glucose - Point of Care 143 mg/dl (70-99)
--- NOTE | 2024-01-20 14:13 | W.PN.UPDATE ---
Update Note
Progress Note Update
Holding Jardiance in preparation for CABG next week (date TBD)
[2024-01-20 15:12] VITALS: BP 139/72
--- NOTE | 2024-01-20 15:53 | PTCARENOTE ---
Per cardiology, patient can shower - order placed. night monitor discontinued so patient could take a quick shower. Linen changed.
[2024-01-20 16:41] LABS: Glucose - Point of Care 116 mg/dl (70-99)
[2024-01-20 19:42] VITALS: BP 146/83
[2024-01-20 21:33] LABS: Glucose - Point of Care 110 mg/dl (70-99)
[2024-01-20 22:10] VITALS: BP 161/78
[2024-01-20] MEDS: NON-FORMULARY ITEM 8.40000000000000036 GRAMS PO (22:12)
--- NOTE | 2024-01-20 23:08 | PTCARENOTE ---
Received pt at handoff. Assessment noted as documented. 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 Pt ambulatory in room; steady gait. Offers no complaints at this time. Currently in bed; call renea w/in reach.
[2024-01-21] VITALS (7 sets, daily range): BP systolic 107–167; BP diastolic 73–90
[2024-01-21 07:13] LABS: Glucose - Point of Care 123 mg/dl (70-99)
--- NOTE | 2024-01-21 07:28 | W.PN.HOSP.TC ---
Today's Communication/Plan
-
Stable medically for CABG next week
Now off Jardiance
Monitor renal status
Assessment / Plan
Assessment / Plan
63-year-old male past medical history of CAD status post PCI in 2005, peripheral arterial disease, hypertension, hyperlipidemia, CKD, diabetes, cognitive impairment, cataracts, presenting to the emergency room with chest pain.� Patient is attending
cardiac rehab for peripheral arterial disease of lower extremities which is being managed conservatively.� Patient was exercising at cardiac rehab on elliptical machine when he developed midsternal chest pain during exercise.� Pain described as
pressure without radiation.� This was the first time on exercise machine and there was significant amount of resistance.� Pain resolved on its own after resting.� Denies any chest pain currently.� Denies any shortness of breath or nausea or
dizziness or palpitations.
He denies smoking.� He drinks alcohol very rarely.� Denies any marijuana or any other drugs.
Mother and father had heart disease and mother had heart attack.
# Stable angina
# History of CAD status post PCI in 2005
-Troponin negative x 3
-EKG shows sinus rhythm with PACs
-Lexiscan in February showed fixed defects and mild residual ischemia
-Continue aspirin
-Continue statin
-Cardiac cath performed shows four-vessel multivessel disease/will require CABG this admission timing as per CV surgery
-Cardiology following /CT surgery
#VITOR on CKD 3A
-Creatinine 1.8 /1.7 at prior baselines
-Gentle hydration as per cardiology
-Follows Dr. Anne at [place]
-Continue Veltassa
-Continue to monitor renal status postcatheterization
-Jardiance discontinued by CT surgery in preparation for CABG
PAD
-Continue aspirin
-Bilateral infrapopliteal stenosis
-Being treated conservatively and had been undergoing rehab and exercise at time of event
Essential hypertension
-Continue amlodipine, hydralazine
Hyperlipidemia
Type 2 diabetes
-Continue Jardiance
-Hold metformin
-ISS
Cognitive impairment
-In relation to history of closed head trauma
Anxiety
-Continue as needed lorazepam
-Continue sertraline
Cataracts
Cardiac diet
DVT prophylaxis�heparin
Full code
Anticipated Discharge: 24 - 48 hours
Subjective/Interval History
-
Date of Service: January 21, 2024
No complaints of chest pain or shortness of breath resting at night anxious to proceed with scheduled for CABG next week
Objective Data
-
Vital Signs:
Vital Signs
Temp Pulse Resp BP Pulse Ox
97.4 F 67 16 114/73 96
01/21/24 04:50 01/21/24 04:48 01/21/24 04:50 01/21/24 04:48 01/21/24 04:50
I&O
01/20/24 01/21/24 01/22/24
06:59 06:59 06:59
Intake Total 480 / 480 880 / 880
Balance 480 / 480 880 / 880
Review of Systems
-
History Source: Patient
All other systems: Not reviewed unless documented
Physical Exam
-
General: Well Developed
HEENT: Normocephalic
Respiratory: Clear to Auscultation
Cardiac: Regular Rhythm
Musculoskeletal: No Edema
Neuro: Awake, Alert, Oriented and AO x 3
Psych: Calm
Data Reviewed
-
Total Time Spent with Patient (in minutes): 45
Labs: Labs Reviewed by me (Blood sugar this morning [id number])
[2024-01-21] MEDS: NOVOLOG FLEXPEN-LOW RESISTANCE SC ×3 (07:52→18:22)
[2024-01-21] MEDS: CRESTOR 20 MG PO (08:12)
[2024-01-21] MEDS: VITAMIN B-12 1000 MCG PO (08:12)
[2024-01-21] MEDS: APRESOLINE 50 MG PO ×3 (08:12→22:18)
[2024-01-21] MEDS: LOW STRENGTH ASPIRIN 81 MG PO (08:12)
[2024-01-21] MEDS: ZOLOFT 100 MG PO (08:12)
[2024-01-21] MEDS: NORVASC 10 MG PO (08:13)
[2024-01-21] MEDS: VITAMIN D3 (cholecalciferol) 25 MCG PO (08:13)
[2024-01-21] MEDS: HEPARIN 5000 UNITS SC ×2 (08:13→19:10)
--- NOTE | 2024-01-21 11:26 | W.PN.CD ---
Today's Communication / Plan
-
In house CABG
Impression / Plan
-
CAD, severe multivessel, no angina currently
HTN
PAD -managed by Dr. Costa. -
HLD, Crestor. goal LDL less than 55. Fatigue with Lipitor.
Stable CKD - 3a. Clinical Ob Dr. Scottie Anne at [place], baseline Cr 1.5-1.7
Remote closed head injury, chronic cognitive impairment, neuro saw pt
Subjective:
Doing well
Physical Exam
Vital Signs/Labs
Vital Signs
Temp Pulse Resp BP Pulse Ox
98.2 F 69 16 141/90 97
01/21/24 11:19 01/21/24 09:00 01/21/24 11:19 01/21/24 08:12 01/21/24 11:19
01/20/24 04:54
01/20/24 04:54
PT 13.6 Sec (11.4-14.6) 01/20/24 04:54
INR 1.03 01/20/24 04:54
APTT 33.2 Sec (23.4-35.0) 01/20/24 04:54
Physical Exam
Constitutional: No acute distress
EENT: Anicteric
Cardiovascular: Rhythm & rate is regular
Respiratory: Respiratory effort normal
GI: Soft and Distention absent
Neuro/Psych: Alert
Data Reviewed
-
Date of Service: January 21, 2024
--- NOTE | 2024-01-21 11:44 | PTCARENOTE ---
SR. walking halls independently. no chest pain. 96% RA. lungs clear. Pulses palpable. tolerating diet. Using bathroom independently. Will continue to monitor.
[2024-01-21 12:15] LABS: Glucose - Point of Care 114 mg/dl (70-99)
[2024-01-21 18:18] LABS: Glucose - Point of Care 107 mg/dl (70-99)
--- NOTE | 2024-01-21 20:41 | PTCARENOTE ---
Pt received at start of shift, HR SR 70s-90s. BP stable. Pt OOB in chair. Pt appears in high spirits. Pt states no questions about upcoming CABG at this time but will notify RN if any come to mind. Pt denies any SOB, CP, pressure in chest, or
lightheadedness/dizziness. Informed to notify RN if any changes, call meier within reach.
[2024-01-21] MEDS: NON-FORMULARY ITEM 8.40000000000000036 GRAMS PO (21:46)
[2024-01-21 21:53] LABS: Glucose - Point of Care 138 mg/dl (70-99)
[2024-01-22 04:01] VITALS: BP 133/67
[2024-01-22 05:02] LABS: Blood Urea Nitrogen 34 mg/dl (9-20); Carbon Dioxide 24 mmol/L (22-30); Chloride 107 mmol/L (98-107); Estimated Creatinine Clearance 35 ml/min; Glucose 118 mg/dl (70-99); Potassium 4.2 mmol/L (3.5-5.1); Sodium 139 mmol/L (135-145); eGFR 34.29
--- NOTE | 2024-01-22 07:15 | W.PN.HOSP.TC ---
Today's Communication/Plan
-
No definitive time for CABG as yet
Will give IV fluids today for VITOR postcontrast
To get to his baseline 1.7 creatinine
Recheck in a.m.
Otherwise stable
Assessment / Plan
Assessment / Plan
63-year-old male past medical history of CAD status post PCI in 2005, peripheral arterial disease, hypertension, hyperlipidemia, CKD, diabetes, cognitive impairment, cataracts, presenting to the emergency room with chest pain.� Patient is attending
cardiac rehab for peripheral arterial disease of lower extremities which is being managed conservatively.� Patient was exercising at cardiac rehab on elliptical machine when he developed midsternal chest pain during exercise.� Pain described as
pressure without radiation.� This was the first time on exercise machine and there was significant amount of resistance.� Pain resolved on its own after resting.� Denies any chest pain currently.� Denies any shortness of breath or nausea or
dizziness or palpitations.
He denies smoking.� He drinks alcohol very rarely.� Denies any marijuana or any other drugs.
Mother and father had heart disease and mother had heart attack.
# Stable angina
# History of CAD status post PCI in 2005
-Troponin negative x 3
-EKG shows sinus rhythm with PACs
-Lexiscan in February showed fixed defects and mild residual ischemia
-Continue aspirin
-Continue statin
-Cardiac cath performed shows four-vessel multivessel disease/will require CABG this admission timing as per CV surgery
-Cardiology following /CT surgery
#VITOR on CKD 3A
-Creatinine 1.8 /1.7 at prior baselines>>2.1/postcontrast nephropathy?
-Gentle hydration as per cardiology
-Follows Dr. Anne at [place]
-Continue Veltassa
-Continue to monitor renal status postcatheterization
-Jardiance discontinued by CT surgery in preparation for CABG
PAD
-Continue aspirin
-Bilateral infrapopliteal stenosis
-Being treated conservatively and had been undergoing rehab and exercise at time of event
Essential hypertension
-Continue amlodipine, hydralazine
Hyperlipidemia
Type 2 diabetes
-Continue Jardiance
-Hold metformin
-ISS
Cognitive impairment
-In relation to history of closed head trauma
Anxiety
-Continue as needed lorazepam
-Continue sertraline
Cataracts
Cardiac diet
DVT prophylaxis�heparin
Full code
Anticipated Discharge: 24 - 48 hours
Subjective/Interval History
-
Date of Service: January 22, 2024
No complaints of chest pains. No complaints of shortness of breath.
Objective Data
-
Labs:
Laboratory Results
01/22/24
04:06
Sodium 139
Potassium 4.2
Chloride 107
Carbon Dioxide 24
BUN 34 H
Creatinine 2.1 H
Glucose 118 H
Calcium 10.0
Vital Signs:
Vital Signs
Temp Pulse Resp BP Pulse Ox
97.8 F 69 18 133/67 97
01/22/24 04:01 01/22/24 04:01 01/22/24 04:01 01/22/24 04:01 01/22/24 04:01
I&O
01/21/24 01/22/24 01/23/24
06:59 06:59 06:59
Intake Total 880 / 880 240 / 240
Balance 880 / 880 240 / 240
Review of Systems
-
History Source: Patient
Constitutional: Reports No Symptoms
EENT: Reports No Symptoms Reported
Respiratory: Reports No Symptoms
Cardiac: Reports No Symptoms
Physical Exam
-
General: Well Developed
HEENT: Normocephalic
Respiratory: Clear to Auscultation
Cardiac: Regular Rhythm
GI: Soft
Skin: IV Access / Catheter Site
Neuro: Awake and Oriented
Data Reviewed
-
Total Time Spent with Patient (in minutes): 45
Labs: Labs Reviewed by me (Creatinine is risen from 1.7-2.1)
--- NOTE | 2024-01-22 07:59 | W.PN.UPDATE ---
Addendum entered and electronically signed by Alonso Talley MD 01/22/24 09:47:
CARDIAC SURGERY ATTENDING:
Will plan for CABG later this week. Exact timing TBD. Continue medical management
Original Note:
Update Note
Progress Note Update
Patient with elevated creatinine today, 2.1 from 1.7. Management per primary team. He continues to deny chest pain. Ongoing eval for CABG and surgical timing TBD.
Za JONES
Cardiac Surgery
[2024-01-22 08:12] VITALS: BP 157/87
[2024-01-22] MEDS: LOW STRENGTH ASPIRIN 81 MG PO (08:40)
[2024-01-22] MEDS: VITAMIN D3 (cholecalciferol) 25 MCG PO (08:40)
[2024-01-22] MEDS: ZOLOFT 100 MG PO (08:40)
[2024-01-22] MEDS: NSS 1000 IV ×2 (08:40→20:51)
[2024-01-22] MEDS: NORVASC 10 MG PO (08:40)
[2024-01-22] MEDS: CRESTOR 20 MG PO (08:40)
[2024-01-22] MEDS: VITAMIN B-12 1000 MCG PO (08:40)
[2024-01-22] MEDS: APRESOLINE 50 MG PO ×3 (08:41→22:03)
[2024-01-22] MEDS: HEPARIN 5000 UNITS SC ×2 (08:41→19:33)
--- NOTE | 2024-01-22 09:08 | PTCARENOTE ---
pt ambulating in halls early today. pt has showered. IVF started per dr. burdick. pt is sr w/1st degree and has infrequent PACs, vss. Pt offers no complaints at this time. pt educated on plan of care for the day and pt verbalized understanding.
call meier within reach.
[2024-01-22 09:59] LABS: Glucose - Point of Care 136 mg/dl (70-99)
[2024-01-22] MEDS: NOVOLOG FLEXPEN-LOW RESISTANCE SC ×2 (10:12→17:33)
--- NOTE | 2024-01-22 12:19 | W.PN.CD ---
Today's Communication / Plan
-
For CABG
Impression / Plan
-
CAD, severe multivessel, no angina currently
HTN
PAD -managed by Dr. Costa. -
HLD, Crestor. goal LDL less than 55. Fatigue with Lipitor.
Stable CKD - 3a. 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
Remote closed head injury, chronic cognitive impairment, neuro saw pt
Subjective:
Doing well
Physical Exam
Vital Signs/Labs
Vital Signs
Temp Pulse Resp BP Pulse Ox
97.6 F 91 18 157/87 97
01/22/24 07:08 01/22/24 09:16 01/22/24 07:08 01/22/24 08:12 01/22/24 07:08
01/20/24 04:54
01/22/24 04:06
PT 13.6 Sec (11.4-14.6) 01/20/24 04:54
INR 1.03 01/20/24 04:54
APTT 33.2 Sec (23.4-35.0) 01/20/24 04:54
Physical Exam
Constitutional: No acute distress
EENT: Anicteric
Cardiovascular: Rhythm & rate is regular and Pedal edema is absent
Respiratory: Respiratory effort normal and Lungs clear to auscul.
GI: Soft
Neuro/Psych: Alert
Data Reviewed
-
Date of Service: January 22, 2024
[2024-01-22 12:30] LABS: Glucose - Point of Care 196 mg/dl (70-99)
[2024-01-22] MEDS: NOVOLOG FLEXPEN-LOW RESISTANCE 1 UNITS SC (12:53)
[2024-01-22 12:57] VITALS: BP 137/79
[2024-01-22 15:39] VITALS: BP 134/77
[2024-01-22 17:27] LABS: Glucose - Point of Care 118 mg/dl (70-99)
[2024-01-22 19:32] VITALS: BP 105/68
--- NOTE | 2024-01-22 20:24 | PTCARENOTE ---
Pt received at start of shift, HR SR w/ first degree AV block 70s-90s. NSS infusing at 80mL/hr per order. Pt OOB in chair watching movies. Pt states no questions on plan of care at this time, will notify RN if any arise. Pt denies any CP, SOB, or
lightheadedness/dizziness. Informed to notify RN if any changes, call meier within reach.
[2024-01-22] MEDS: NON-FORMULARY ITEM 8.40000000000000036 GRAMS PO (21:07)
[2024-01-22 22:04] LABS: Glucose - Point of Care 138 mg/dl (70-99)
[2024-01-22 22:06] VITALS: BP 137/86
[2024-01-23] VITALS (7 sets, daily range): BP systolic 118–146; BP diastolic 62–103
[2024-01-23 03:11] LABS: Blood Urea Nitrogen 33 mg/dl (9-20); Calcium 9.5 mg/dl (8.4-10.2); Carbon Dioxide 24 mmol/L (22-30); Chloride 108 mmol/L (98-107); Estimated Creatinine Clearance 39 ml/min; Glucose 113 mg/dl (70-99); Potassium 4.1 mmol/L (3.5-5.1); Sodium 139 mmol/L (135-145); eGFR 38.66
[2024-01-23 08:06] LABS: Glucose - Point of Care 129 mg/dl (70-99)
[2024-01-23] MEDS: NOVOLOG FLEXPEN-LOW RESISTANCE SC ×2 (08:13→17:05)
--- NOTE | 2024-01-23 08:29 | W.PN.HOSP.TC ---
Today's Communication/Plan
-
Cardiothoracic surgery discussed CABG risks and benefits with patient
Monitor renal function
Assessment / Plan
Assessment / Plan
Physical Exam
General: Not in acute distress
HEENT: Normocephalic
Respiratory: Clear to Auscultation Bilaterally
Cardiac: S1 and S2. Regular Rhythm
GI: Soft and Nontender. Positive bowel sounds.
Neuro: Awake and Oriented
Assessment/Plan
63-year-old male past medical history of CAD status post PCI in 2005, peripheral arterial disease, hypertension, hyperlipidemia, CKD, diabetes, cognitive impairment, cataracts, presenting to the emergency room with chest pain.�Patient was attending
cardiac rehab for peripheral arterial disease of lower extremities which is being managed conservatively.�Patient was exercising at cardiac rehab on elliptical machine when he developed midsternal chest pain during exercise.�Pain described as
pressure without radiation.�This was the first time on exercise machine and there was significant amount of resistance.�Pain resolved on its own after resting. Denies any chest pain currently.�Denies any shortness of breath or nausea or dizziness or
palpitations.
He denied smoking.� He drinks alcohol very rarely.�He denied using any marijuana or any other drugs.
Mother and father had heart disease and mother had heart attack.
# Stable angina
# History of CAD status post PCI in 2005
-Troponin negative x 3
-EKG shows sinus rhythm with PACs
-Lexiscan in February showed fixed defects and mild residual ischemia
-Continue aspirin
-Continue statin
-Cardiac cath performed shows four-vessel multivessel disease/will require CABG this admission timing as per CV surgery
-Cardiology following /CT surgery
#VITOR on CKD 3A
-Creatinine 1.8 /1.7 at prior baselines>>2.1/postcontrast nephropathy?>>now improving
-Gentle hydration as per cardiology completed
-Follows Dr. Anne at [place]
-Continue Veltassa
-Continue to monitor renal status postcatheterization
-Jardiance discontinued by CT surgery in preparation for CABG
PAD
-Continue aspirin
-Bilateral infrapopliteal stenosis
-Being treated conservatively and had been undergoing rehab and exercise at time of event
Essential hypertension
-Continue amlodipine, hydralazine
Hyperlipidemia
-Continue statin
Type 2 diabetes
-Jardiance on hold, as above
-Hold metformin
-ISS
Cognitive impairment
History of closed head trauma and cognitive dysfunction
-In relation to history of closed head trauma
Anxiety
-Continue as needed lorazepam
-Continue sertraline
Cataracts
Cardiac diet
DVT prophylaxis�heparin
Full code
Anticipated Discharge: > 48 hours
Subjective/Interval History
-
Date of Service: January 23, 2024
Patient was seen and examined. He reported no chest pain or significant shortness of breath.
Objective Data
-
Labs:
Laboratory Results
01/23/24
02:31
Sodium 139
Potassium 4.1
Chloride 108 H
Carbon Dioxide 24
BUN 33 H
Creatinine 1.9 H
Glucose 113 H
Calcium 9.5
Vital Signs:
Vital Signs
Temp Pulse Resp BP Pulse Ox
98.7 F 76 20 118/62 97
01/23/24 07:43 01/23/24 02:22 01/23/24 07:43 01/23/24 02:22 01/23/24 07:43
I&O
01/22/24 01/23/24 01/24/24
06:59 06:59 06:59
Intake Total 240 / 240 1440 / 1440
Balance 240 / 240 1440 / 1440
[2024-01-23] MEDS: CRESTOR 20 MG PO (08:38)
[2024-01-23] MEDS: VITAMIN D3 (cholecalciferol) 25 MCG PO (08:38)
[2024-01-23] MEDS: VITAMIN B-12 1000 MCG PO (08:38)
[2024-01-23] MEDS: LOW STRENGTH ASPIRIN 81 MG PO (08:39)
[2024-01-23] MEDS: NORVASC 10 MG PO (08:39)
[2024-01-23] MEDS: APRESOLINE 50 MG PO ×3 (08:39→22:15)
[2024-01-23] MEDS: ZOLOFT 100 MG PO (08:40)
[2024-01-23] MEDS: HEPARIN 5000 UNITS SC ×2 (08:40→19:39)
--- NOTE | 2024-01-23 11:28 | W.PN.UPDATE ---
Update Note
Progress Note Update
Pt seen and examined
no angina
comfortable
Long discussion regarding cabg and its risks. Long discussion specifically regarding his CKD and timing for surgery.
Cr 1.9 today
Plan for cabg Wed as long as creat tomorrow is down or stable, will delay if >1.9
Pt appears to understand
[2024-01-23 12:13] LABS: Glucose - Point of Care 172 mg/dl (70-99)
[2024-01-23] MEDS: NOVOLOG FLEXPEN-LOW RESISTANCE 1 UNITS SC (12:13)
[2024-01-23] MEDS: NSS IV (12:36)
--- NOTE | 2024-01-23 12:57 | CM ---
spoke with pt in room, plans remain CABG this week, poss Wed, cm following.
[2024-01-23 16:55] LABS: Glucose - Point of Care 117 mg/dl (70-99)
--- NOTE | 2024-01-23 20:00 | PTCARENOTE ---
Resumed care. Patient walking in room and hallway. Denies pain, NSR with a 1st degree HB in the 80's. Call meier in reach
[2024-01-23] MEDS: NON-FORMULARY ITEM 8.40000000000000036 GRAMS PO (22:15)
[2024-01-23 22:29] LABS: Glucose - Point of Care 137 mg/dl (70-99)
--- NOTE | 2024-01-24 04:48 | W.PN.CT ---
Today's Communication / Plan
-
Plan:
-Cont. current medical management per primary team
-Cont. current meds (ASA, Crestor, Norvasc; holding Jardiance/Metformin, avoid ARVIND-I/ARBs)
-Cont. medical optimization
-Ongoing preop evaluation
-Tentatively for CABG tomorrow 01/[address] Benitez if medically optimized (maintain creatinine </= 1.9)
-F/U BMP/creatinine, pending this AM
-Will cont. to closely monitor
Assessment / Plan
-
Assessment:
-Severe multivessel CAD
-Hx CAD/OH S/P PCI with stent to ostial/prox. LAD, 2005
-Exertional angina
-First deg. HB
-HTN
-HLD
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
-Legally blind
-Right eye cataracts
-Acute on CKD3b (cr 1.7-1.8 baseline)
-PAD (B/L infrapopliteal stenosis)
-Mild cognitive impairment (cleared by Neurology)
-Medical non-compliant d/t lack of health insurance
-Anxiety/Depression
-Former tobacco use (quit 30 yrs ago)
Discussed patient care with: Cardiology, Nursing, Pharmacy and Care Team
Subjective
-
Date of Service: January 24, 2024
No issues overnight. Pt denies CP/SOB
Objective Data
-
Lab Results
01/20/24 04:54
PT 13.6 Sec (11.4-14.6) 01/20/24 04:54
INR 1.03 01/20/24 04:54
APTT 33.2 Sec (23.4-35.0) 01/20/24 04:54
Vital Signs
Vital Signs
Temp Pulse Resp BP Pulse Ox
97.6 F 73 16 121/77 96
01/23/24 22:20 01/24/24 02:00 01/23/24 22:20 01/23/24 22:13 01/23/24 22:20
SaO2: 96 (RA)
Physical Exam
-
General: Awake, Oriented and AOx3
Cardiovascular: Regular rate & rhythm and No Murmurs
Respiratory: Clear
Extremities: No Edema and Other (1+ DP pulse)
Data Reviewed
-
Lab Results: Results Reviewed
Medications: Active Meds Reviewed
Chest X-Ray: Report Reviewed and Image Reviewed
ECG: Report Reviewed and Image Reviewed
[2024-01-24 04:56] VITALS: BP 132/64
[2024-01-24 05:49] LABS: Blood Urea Nitrogen 31 mg/dl (9-20); Calcium 9.6 mg/dl (8.4-10.2); Carbon Dioxide 24 mmol/L (22-30); Chloride 107 mmol/L (98-107); Estimated Creatinine Clearance 43 ml/min; Glucose 107 mg/dl (70-99); Potassium 3.9 mmol/L (3.5-5.1); Sodium 140 mmol/L (135-145); eGFR 44.18
--- NOTE | 2024-01-24 05:50 | PTCARENOTE ---
No events overnight, walking in room, vitals and labs collected. call meier within reach
[2024-01-24 06:55] VITALS: BP 125/47
[2024-01-24 06:59] LABS: Glucose - Point of Care 115 mg/dl (70-99)
[2024-01-24] MEDS: VITAMIN D3 (cholecalciferol) 25 MCG PO (08:17)
[2024-01-24] MEDS: ZOLOFT 100 MG PO (08:17)
[2024-01-24] MEDS: APRESOLINE 50 MG PO ×3 (08:17→22:53)
[2024-01-24] MEDS: LOW STRENGTH ASPIRIN 81 MG PO (08:17)
[2024-01-24] MEDS: HEPARIN 5000 UNITS SC ×2 (08:17→19:53)
[2024-01-24] MEDS: CRESTOR 20 MG PO (08:21)
[2024-01-24] MEDS: NORVASC 10 MG PO (08:21)
[2024-01-24] MEDS: VITAMIN B-12 1000 MCG PO (08:22)
[2024-01-24] MEDS: NOVOLOG FLEXPEN-LOW RESISTANCE SC ×3 (08:25→17:52)
[2024-01-24] MEDS: SENOKOT-S 1 TABLET PO (08:30)
--- NOTE | 2024-01-24 08:36 | W.PN.CD ---
Today's Communication / Plan
-
-No cardiac complaints this a.m.; denies any chest pain or shortness of breath.
-Telemetry stable; remains in sinus rhythm with no arrhythmias.
-Continue current medications.
-Scheduled to undergo CABG likely tomorrow.
-Continue aspirin/statin.
Impression / Plan
-
CAD:
-Multivessel CAD on cardiac catheterization
-Scheduled to undergo CABG likely tomorrow.
-Continue aspirin/statin.
HTN:
-Fairly controlled
-Continue current medications.
PAD:
- Stable.
- Managed by Dr. Costa.
- Exercise program with cardiac rehab.
HLD:
-Continue Crestor.
CKD3a:
- Followed by Dr. Cuadra at [place] - baseline is 1.5-1.7
- Creatinine today is 1.7; relatively stable.
Hx of remote closed head injury
chronic mild-mod cognitive impairment
Subjective:
No major events overnight. No cardiac complaints this a.m.; denies any chest pain or shortness of breath. Telemetry stable; remains in sinus rhythm with no arrhythmias.
Physical Exam
Vital Signs/Labs
Vital Signs
Temp Pulse Resp BP Pulse Ox
97.9 F 63 16 132/64 97
01/24/24 06:54 01/24/24 06:54 01/24/24 06:54 01/24/24 04:56 01/24/24 06:54
01/20/24 04:54
01/24/24 05:03
PT 13.6 Sec (11.4-14.6) 01/20/24 04:54
INR 1.03 01/20/24 04:54
APTT 33.2 Sec (23.4-35.0) 01/20/24 04:54
Magnesium 2.0 mg/dl (1.6-2.3) 01/24/24 05:03
Physical Exam
Constitutional: No acute distress and Comfortable
EENT: Anicteric
Cardiovascular: Rhythm & rate is regular, Pedal edema is absent, Systolic murmur absent and S1S2 is normal
Respiratory: Respiratory effort normal and Lungs clear to auscul.
GI: Soft
Neuro/Psych: AO x 3
Other: Skin (Warm, dry, intact)
Data Reviewed
-
Date of Service: January 24, 2024
EKG: Tracing Personally Visualized and interpreted (Telemetry: Sinus rhythm)
Echo: Tracing Personally Visualized and interpreted (EF 55-60%; aortic sclerosis without stenosis.)
Medical Tests (PFT, Pathology etc): Discussed with Nurse and Discussed with Patient
Labs: Labs Reviewed by me
[2024-01-24 11:41] VITALS: BP 152/87
[2024-01-24 11:45] LABS: Glucose - Point of Care 147 mg/dl (70-99)
--- NOTE | 2024-01-24 15:17 | CM ---
spoke with [facility] ag equipment field service technician, Gabriela Solorio [phone]. emailed letter ([email or web address]) as requested asking for expided decision to increase pts DIRECTOR FUNDS DEVELOPMENT hours from M-F 4 hrs to 7 days/ 8 hrs for his 4 wk recovery at
home. awaiting approval.
[2024-01-24 15:32] VITALS: BP 152/83
--- NOTE | 2024-01-24 15:33 | W.PN.UPDATE ---
Update Note
Progress Note Update
Patient met and discussed risk/benefit of CABG with Dr. Benitez. Consent signed, anesthesia consult on chart. He is scheduled for CABG 01/25. NPO after midnight. Patient is LEGALLY BLIND.
[2024-01-24 16:42] LABS: Glucose - Point of Care 124 mg/dl (70-99)
--- NOTE | 2024-01-24 18:00 | PTCARENOTE ---
Pt denies any chest pain or sob. Ambulating in the room and hallway ad raj. Pt for CVOR in the am. Right rad site EVIE and WNL.
--- NOTE | 2024-01-24 18:22 | W.PN.HOSP.TC ---
Today's Communication/Plan
-
NPO after midnight for surgery tomorrow
CABG tomorrow
Assessment / Plan
Assessment / Plan
Physical Exam
General: Not in acute distress
HEENT: Normocephalic
Respiratory: Clear to Auscultation Bilaterally
Cardiac: S1 and S2. Regular Rhythm
GI: Soft and Nontender. Positive bowel sounds.
Neuro: Awake and Oriented
Assessment/Plan
63-year-old male past medical history of CAD status post PCI in 2005, peripheral arterial disease, hypertension, hyperlipidemia, CKD, diabetes, cognitive impairment, cataracts, presenting to the emergency room with chest pain.�Patient was attending
cardiac rehab for peripheral arterial disease of lower extremities which is being managed conservatively.�Patient was exercising at cardiac rehab on elliptical machine when he developed midsternal chest pain during exercise.�Pain described as
pressure without radiation.�This was the first time on exercise machine and there was significant amount of resistance.�Pain resolved on its own after resting. Denies any chest pain currently.�Denies any shortness of breath or nausea or dizziness or
palpitations.
He denied smoking.� He drinks alcohol very rarely.�He denied using any marijuana or any other drugs.
Mother and father had heart disease and mother had heart attack.
# Stable angina
# History of CAD status post PCI in 2005
-Troponin negative x 3
-EKG shows sinus rhythm with PACs
-Lexiscan in February showed fixed defects and mild residual ischemia
-Continue aspirin
-Continue statin
-Cardiac cath performed 01/17/24 showed four-vessel multivessel disease/will require CABG this admission timing as per CV surgery
-Cardiology following /CT surgery
-CABG tomorrow, NPO after midnight
#VITOR on CKD 3A
-Creatinine 1.8 /1.7 at prior baselines>>2.1/postcontrast nephropathy?>>now improving (down to 1.7 today)
-Gentle hydration as per cardiology completed
-Follows Dr. Anne at [place]
-Continue Veltassa
-Continue to monitor renal status postcatheterization
-Jardiance discontinued by CT surgery in preparation for CABG
PAD
-Continue aspirin
-Bilateral infrapopliteal stenosis
-Being treated conservatively and had been undergoing rehab and exercise at time of event
Essential hypertension
-Continue amlodipine, hydralazine
Hyperlipidemia
-Continue statin
Type 2 diabetes
-Jardiance on hold, as above
-Hold metformin
-ISS
Cognitive impairment
History of closed head trauma and cognitive dysfunction
-In relation to history of closed head trauma
Anxiety
-Continue as needed lorazepam
-Continue sertraline
Cataracts
Cardiac diet
DVT prophylaxis�heparin
Full code
Anticipated Discharge: > 48 hours
Subjective/Interval History
-
Date of Service: January 24, 2024
Patient was seen and examined. He was doing okay and denied any new complaints, denied any chest pain, shortness of breath.
Objective Data
-
Vital Signs:
Vital Signs
Temp Pulse Resp BP Pulse Ox
97.7 F 83 16 152/83 96
01/24/24 15:31 01/24/24 15:32 01/24/24 15:31 01/24/24 15:32 01/24/24 15:31
I&O
01/23/24 01/24/24 01/25/24
06:59 06:59 06:59
Intake Total 1440 / 1440
Balance 1440 / 1440
[2024-01-24 19:24] VITALS: BP 153/82
[2024-01-24 21:42] LABS: Glucose - Point of Care 128 mg/dl (70-99)
[2024-01-24 22:51] VITALS: BP 161/80
[2024-01-24] MEDS: NON-FORMULARY ITEM PO (22:56)
--- NOTE | 2024-01-24 22:57 | PTCARENOTE ---
Tele remains SR w/ 1st AV block and occasionally sinus arrhythmia. Denies any pain or discomfort. Ambulates self in room w/out difficulty, and denies any dizziness. Right radial site DISTRICT SUPERVISOR, and ecchymotic. Pt clipped and first round of prep completed.
Patient aware to remain NPO at midnight. Call meier in reach.
[2024-01-25] VITALS (20 sets, daily range): BP systolic 55–164; BP diastolic 33–97; BMI 25.1
[2024-01-25 05:07] LABS: Hematocrit 33.9 % (39.0-52.0); Hemoglobin 11.4 g/dL (13.0-18.0); Mean Corp Hgb Conc. 33.6 g/dL (33.0-37.0); Mean Corpuscular Volume 83.3 fL (80.0-94.0); Mean Platelet Volume 10.2 fL (7.4-10.4); Platelet Count 258 10^3/uL (130-400); Red Blood Cell Count 4.07 10^6/uL (4.70-6.10); Red Cell Dist. Width 13.3 % (11.5-14.5); White Blood Cell Count 10.2 10^3/uL (4.8-10.8)
[2024-01-25] MEDS: PROTONIX 40 MG PO (05:29)
[2024-01-25] MEDS: MAGNESIUM OXIDE 500 MG PO (05:29)
[2024-01-25] MEDS: LOPRESSOR 25 MG PO (05:29)
[2024-01-25] MEDS: BACTROBAN 2% OINTMENT 1 APPLIC NASAL ×2 (05:29→20:45)
[2024-01-25 05:31] LABS: Blood Urea Nitrogen 29 mg/dl (9-20); Calcium 9.4 mg/dl (8.4-10.2); Carbon Dioxide 24 mmol/L (22-30); Chloride 106 mmol/L (98-107); Estimated Creatinine Clearance 43 ml/min; Glucose 117 mg/dl (70-99); Potassium 4.1 mmol/L (3.5-5.1); Sodium 141 mmol/L (135-145); eGFR 44.18
--- NOTE | 2024-01-25 06:02 | PTCARENOTE ---
Blood sugar this AM 133, Accu chek machine not crossing over to [employer]. No coverage needed at this time. 2nd prep completed.
[2024-01-25] MEDS: NOVOLOG FLEXPEN-LOW RESISTANCE SC ×2 (06:03→12:49)
--- NOTE | 2024-01-25 06:49 | W.CVOR.SURPR ---
CVOR Surgeon Immed Pre Op
-
I have examined this patient prior to performance of the scheduled procedure.
The patient's condition is unchanged from the time of the dictated/written History and
Physical and the patient is able to undergo the scheduled procedure.
[2024-01-25 07:57] LABS: ACT+ - POC 79 Seconds (82-134)
[2024-01-25 08:01] LABS: B.E. - POC -3.6 mmol/L; Glucose - POC 102 mg/dl (65-99); HCO3 - POC 21 mmol/L (21-29); Hematocrit - POC 30 % PCV (42-52); Hemodilution- POC Yes; Hemoglobin Calculated - POC 10.3; Ionized Calcium - POC 1.16 mmol/L (1.12-1.27); PCO2 - POC 36 mmHg (35-45); PO2 - POC 442 mmHg (80-100); Potassium - POC 3.6 mmol/L (3.6-5.0); Sodium - POC 142 mmol/L (135-145); pH - POC 7.38 (7.35-7.45)
[2024-01-25 08:19] LABS: Urine Albumin Trace (Neg - Trace); Urine Bilirubin Negative (Negative); Urine Character Clear (Clear); Urine Color Yellow; Urine Glucose 3+ (Negative); Urine Ketone Negative (Negative); Urine Leukocyte Negative (Negative); Urine Nitrite Negative (Negative); Urine Occult Blood Negative (Negative); Urine Urobilinogen Negative (Neg - 1+)
[2024-01-25 08:30] LABS: Glucose - Point of Care 133 mg/dl (70-99)
[2024-01-25 10:29] LABS: ACT+ - POC 744 Seconds (82-134)
[2024-01-25 10:59] LABS: B.E. - POC -0.3 mmol/L; Glucose - POC 71 mg/dl (65-99); HCO3 - POC 24 mmol/L (21-29); Hematocrit - POC 21 % PCV (42-52); Hemodilution- POC Yes; Hemoglobin Calculated - POC 7.2; Ionized Calcium - POC 0.99 mmol/L (1.12-1.27); PCO2 - POC 36 mmHg (35-45); PO2 - POC 352 mmHg (80-100); Potassium - POC 3.7 mmol/L (3.6-5.0); Sodium - POC 141 mmol/L (135-145); pH - POC 7.43 (7.35-7.45)
[2024-01-25 11:11] LABS: ACT+ - POC 986 Seconds (82-134)
[2024-01-25 11:23] LABS: B.E. - POC -1.6 mmol/L; Glucose - POC 63 mg/dl (65-99); HCO3 - POC 23 mmol/L (21-29); Hematocrit - POC 24 % PCV (42-52); Hemodilution- POC Yes; Hemoglobin Calculated - POC 8.2; Ionized Calcium - POC 1.03 mmol/L (1.12-1.27); PCO2 - POC 35 mmHg (35-45); PO2 - POC 407 mmHg (80-100); Potassium - POC 4.1 mmol/L (3.6-5.0); Sodium - POC 144 mmol/L (135-145); pH - POC 7.42 (7.35-7.45)
[2024-01-25 11:34] LABS: ACT+ - POC 747 Seconds (82-134)
[2024-01-25 12:01] LABS: ACT+ - POC 98 Seconds (82-134)
[2024-01-25 12:04] LABS: B.E. - POC -1.6 mmol/L; Glucose - POC 66 mg/dl (65-99); HCO3 - POC 22 mmol/L (21-29); Hematocrit - POC 21 % PCV (42-52); Hemodilution- POC Yes; Hemoglobin Calculated - POC 7.3; Ionized Calcium - POC 1.37 mmol/L (1.12-1.27); PCO2 - POC 32 mmHg (35-45); PO2 - POC 467 mmHg (80-100); Potassium - POC 3.9 mmol/L (3.6-5.0); Sodium - POC 143 mmol/L (135-145); pH - POC 7.45 (7.35-7.45)
--- NOTE | 2024-01-25 12:46 | W.PN.CT.SURG ---
CT Surgery Operative Note
-
Pre-op Diagnosis: exertional angina
cad
pvd
Post-op Diagnosis: Same
Procedure: Cabg x 4
Holden- lad
Ele- ramus
Ele- om1
Ao-svg-pda
LAAL #40
LEVH
RSF
TTFM
Primary Surgeon: Eli
Assisting Surgeons: Tonia
Specimen: None
Cultures: None
Complications / Blood Loss: None
Findings: Jag with preserved EF pre and postop, no new wma
Eli without clot, completely occluded with clip
Good conduits
Severe calcific cad- very poor targets from diffuse disease, except Pda- good target
[2024-01-25] MEDS: CRESTOR PO (12:48)
[2024-01-25] MEDS: VITAMIN B-12 PO (12:48)
[2024-01-25] MEDS: TYLENOL PO ×3 (12:49→20:44)
[2024-01-25] MEDS: NORVASC PO (12:49)
[2024-01-25] MEDS: VITAMIN D3 (cholecalciferol) PO (12:49)
[2024-01-25] MEDS: ZOLOFT PO (12:49)
--- NOTE | 2024-01-25 12:49 | W.PN.UPDATE ---
Update Note
Progress Note Update
IV fluids: 1000ml
Crystalloid:� 1100ml
U.O.:� 800
UF:� 800
Blood:� None
Wires:� A + V wires
Inotropes:� None
Pressors:� Levophed
Sedatives:� Precedex
�
NEURO: sedated on precedex, pupils +2 mm B/L
RESP: #8OT @24cm> 14/500/60/5 Lungs clear B/L. 2 mediastinal (20cc on arrival) and R/L pleural (30cc on arrival) chest tubes to -20cm suction. Sanguineous drainage
CV: RRR +S1, S2, no S3, no�rub, no murmur.
ABD: round, soft, no BS
EXT: no edema, +2/4 DP pulses B/L, no femoral bruit,LE ARVIND wrap intact; left radial A-line intact
: Costa with clear yellow urine
�
A/P: POD #0 s/p CABG x4
SALLY: EF�60%
- wean and extubate
- start BB when BP allows
- start ASA 6 hrs post-op
- Monitor CT output
- Will start plavix on POD#1 if no contraindications
- Wean levophed to MAPs >70; intermittently on cardene
- f/u ABG and post-op labs
- Cardiology consulted
#Acute on Chronic kidney disease
- Baseline cr 1.7 (peaked at 2.1)
- continue to monitor UOP and cr trend
# acute surgical blood loss anemia-expected
- trend CBC
- Goal hgb >7.0
�
# T2DM (A1C 6.1)
- insulin infusion x 48H
- resume jardiance when transitioning from insulin gtt
�
# Hyperlipidemia
- resume�statin
[2024-01-25] MEDS: HEPARIN SC (12:50)
[2024-01-25] MEDS: APRESOLINE PO (12:50)
[2024-01-25] MEDS: LOW STRENGTH ASPIRIN PO (12:50)
--- NOTE | 2024-01-25 13:15 | PTCARENOTE ---
Received patient from CVOR. Pt intubated and sedated on precedex gtt. Unresponsive at this time. POX 100% SIMV 60% 14 500 5/5. Lungs clear anteriorly. Small amount of clear secretions via oral cavity. Mediastinal chest tube to -20cm suction draining
red fluid. Right and left pleural chest tubes y-sited to 1 atrium to -20cm suction draining red fluid. No air leaks, tidaling, crepitus noted. 100% A paced via epicardial AV wires set to AAI 80/4/0.5. Underlying sinus edgardo with 1st degree AVB. BP
very labile, titrating Nitro and Levophed to maintain goal BP MAP >70. +Rub. CVP 7. Bilateral radial and DP pulses palpable. No edema noted. Abdomen soft, nontender. Hypoactive BS. Costa catheter intact draining adequate amounts of clear pale yellow
urine. Sternal incision covered with Aquacel-CDI. Chest tube dressing CDI. Right groin puncture site approximated with skin glue-EVIE. Right knee incision approximated with skin glue and ARVIND-CDI. Right IJ cordis and slick in place. Left radial josiah
intact with appropriate waveform. All lines flushed, leveled, and zeroed. Right forearm 18g PIV, Right AC 20g PIV intact. Post op labs, EKG, CXR completed.
Gtts:
NSS KVO
Insulin per critical care glycemic protocol
Precedex @ 0.5mcg/kg/hr
[2024-01-25 13:18] LABS: Glucose - Point of Care 92 mg/dl (70-99)
[2024-01-25 13:34] LABS: B.E. -4.5 mmol/L; HCO3 19.6 mmol/L (21-28); Ionized Calcium 1.15 mMOL/L (1.15-1.33); O2 Saturation % 99.1 % (94-98); PCO2 31 mmHg (35-48); PO2 215 mmHg (83-108); Potassium 3.6 mMOL/L (3.5-5.1); Sodium 143 mMOL/L (136-145); pH 7.41 (7.35-7.45)
[2024-01-25 13:45] LABS: Blood Urea Nitrogen 21 mg/dl (9-20); Estimated Creatinine Clearance 49 ml/min; Glucose 88 mg/dl (70-99); Magnesium 2.3 mg/dl (1.6-2.3)
[2024-01-25 13:47] LABS: INR 1.48
[2024-01-25 13:48] LABS: APTT 32.2 Sec (23.4-35.0)
[2024-01-25] MEDS: STERILE WATER FOR INJECTION 16 ML IV ×2 (13:56)
[2024-01-25] MEDS: ZINACEF 1500 MG IV ×2 (13:56)
[2024-01-25] MEDS: ALBUMIN 5% 250 IV ×2 (13:57→17:03)
[2024-01-25] MEDS: NSS 500 IV (13:57)
[2024-01-25 13:58] LABS: Hemoglobin 7.7 g/dL (13.0-18.0); Platelet Count 166 10^3/uL (130-400)
[2024-01-25] MEDS: CARDENE 200 IV (14:00)
--- NOTE | 2024-01-25 14:01 | CM ---
Chart reviewed. Patient is in the OR today. Patient is independent of ADLS, lives alone in an apartment at [facility]. Patient receives ENVIRONMENTAL HEALTH TECHNICIAN services through [employer] M-F 4 hours a day, patient also has a Data Communications Engineer through
[employer] and supportive friends to assist patient with needs. Referral letter sent to [facility] to increase ENVIRONMENTAL HEALTH TECHNICIAN, waiting for determination. Plan is for the patient to return home with CT Transitional RN. CM to follow
[2024-01-25 14:04] LABS: Glucose - Point of Care 139 mg/dl (70-99)
[2024-01-25] MEDS: CALCIUM CHLORIDE 10% SYRINGE 50 MG IV (14:21)
[2024-01-25] MEDS: NSS (PRESERVATIVE FREE) IV (14:21)
[2024-01-25] MEDS: CALCIUM CHLORIDE 10% SYRINGE 50 ML IV (14:21)
[2024-01-25] MEDS: PEPCID IV (14:21)
--- NOTE | 2024-01-25 14:24 | W.PN.CD ---
Today's Communication / Plan
-
Close post-op monitoring and care with weaning of drips and vent as tolerated and appropriate per CT/surgery/CVICU protocol
Impression / Plan
-
CAD:
-Multivessel CAD on cardiac catheterization
-now s/p CABG x [address] Benitez 01/25/24
-post op telemetry paced. Post-op EKG SB.
-intra-op SALLY with normal EF
-intubated/sedated, Costa, CT's, pacer wire in place
-currently on Cardene drip
-ASA/statin
-acute post-op anemia being monitored closely
HTN:
-monitor post-op
PAD:
-follows with Dr. Costa
HLD:
-Continue Crestor.
CKD3a:
-Followed by Dr. Cuadra at [place] - baseline is 1.5-1.7
-currently stable
Hx of remote closed head injury:
-chronic mild-mod cognitive impairment
Physical Exam
Vital Signs/Labs
Vital Signs
Temp Pulse Resp BP Pulse Ox
96.5 F L 80 16 160/97 100
01/25/24 14:00 01/25/24 14:00 01/25/24 14:05 01/25/24 05:29 01/25/24 14:05
01/24/24 01/25/24 01/26/24
06:59 06:59 06:59
Actual Weight 77.1 kg
01/25/24 13:16
PT 18.0 Sec (11.4-14.6) H 01/25/24 13:16
INR 1.48 01/25/24 13:16
APTT 32.2 Sec (23.4-35.0) 01/25/24 13:16
Magnesium 2.3 mg/dl (1.6-2.3) 01/25/24 13:16
Physical Exam
Constitutional: No acute distress
EENT: Anicteric
Cardiovascular: Rhythm & rate is regular
Respiratory: Lungs clear to auscul. and Other (intubated/ventilated)
Neuro/Psych: Other (sedated)
Other: Skin (midsternal incision dressing CDI)
Data Reviewed
-
Date of Service: January 25, 2024
EKG: Tracing Personally Visualized and interpreted (SB 1st degree AVB, t wave abnormalities anteriorly)
Labs: Labs Reviewed by me
--- NOTE | 2024-01-25 14:30 | CON.INTV ---
Consultation
Consultation Request
Date/Time Consultation Requested: 01/25/2024 - 1223
Date/Time Consultation Performed: 01/25/2024 - 1300
Requesting Provider: Za JONES
Performing Provider: Dr. Fan
Reason for Consultation: s/p CABG
Medical History
-
Chief Complaint: Chest pain
History of Present Illness:
63-year-old male with a past medical history of CAD, PAD, CKD and DM type II who presented on 01/16/2020 for chest pain. Patient was in cardiac rehab when he started to develop chest discomfort with shortness of breath and suspected EKG changes, so
patient sent to the ER for further evaluation. Patient was afebrile in the ER to 97.9 �F, heart rate 62, RR: 16, BP 133/72, and saturated 96% on room air. Initial labs showed elevated creatinine 1.7 (last normal Cr was in 12/2019 at 1.0, however
according to outpatient records his Cr has been 1.6-1.8 between February and August 2023), initial troponin negative at <0.012, normal WBC at 7.1, mildly reduced Hb at 10.7, platelet count normal at 204, and he was hyperglycemic to 229. Initial EKG
showed NSR with a ventricular rate of 74 bpm. IV fluids were given to the patient, and the patient was admitted to the hospitalist service for further evaluation. Cardiology was consulted. Troponin was negative x 3. Patient did have a
regadenoson nuclear stress test in February 2023 which showed predominantly fixed defects in the mid anterior, mid anterolateral, apical septal, apical anterior, apical lateral and apex segments consistent with infarction with residual ischemia.
Systolic function was normal and the EF was approximately 55%. Due to these findings, a left heart catheterization was performed on 01/17/2024 showing multivessel CAD involving the LAD, ramus intermedius, LCx, and RCA. With poorly suited anatomy
for PCI hence patient was referred for CABG. Patient was continued on aspirin. After further discussion regarding risks and benefits of CABG procedure, patient agreed to cardiothoracic intervention. Patient underwent CABG x 4 today with no
immediate complications, and was transferred to CVICU postoperatively with critical care services consulted for additional management/recommendations.
When I saw the patient he was intubated on SIMV at 14/500/40%/5, breathing at 18 breaths/min, with VTe of 458mL and PIP [id number]. He does awaken to tactile stimuli and is following commands. He is A-paced with heart rate 65�68, BP via A-line:
146/71, NIBP: 106/73, SpO2: 100%. Right IJ cordis in place without PAC. Left/right pleural chest tube in place attached to Pleur-evac and additional Pleur-evac attached to mediastinal chest tube x1. He is lightly sedated on Precedex drip at
0.5mcg/kg/hr, on Cardene at 2.5 mg/hr and insulin infusion at 1.5 units/h.
PMHx: CAD with history of [place] s/p PCI/stents (2005), hypertension, hyperlipidemia, PAD, CKD, DM type II, cognitive impairment s/p prior brain injury, history of asthma, history of pneumonia, anxiety/depression
PSHx: Right eye cataract, coronary stents
Past Medical History
Past Medical History: Other (Above as per HPI)
Past Surgical History: Other (Above as per HPI)
Social History
Tobacco: Former Smoker (Quit 30 years ago)
Alcohol: Occasional
Drug: None
Personal: Single
Living: Alone
Family History
Family History: CAD (Mother & father; mother had heart attack)
Allergies / Home Medications
Allergies
Allergy/AdvReac Type Severity Reaction Status Date / Time
No Known Allergies Allergy Unverified 01/16/24 18:54
Home Medications
Medication Instructions Recorded Confirmed Last Taken Type
aspirin 81 mg chewable tablet 81 mg PO DAILY Blood Clot 01/11/20 01/16/24 01/16/24 History
Prevention/Tx
metformin 850 mg tablet 850 mg PO TID diabetes 01/11/20 01/16/24 01/16/24 History
aflibercept 2 mg/0.05 mL 2 mg intravitreal Q8W Eye Condition 01/16/24 01/16/24 Unknown History
intravitreal syringe (Eylea)
albuterol sulfate 90 mcg/actuation 1 puff inhalation Q4H PRN 01/16/24 01/16/24 Unknown History
aerosol inhaler (ProAir HFA) shortness of breath
amlodipine 10 mg tablet 10 mg PO DAILY blood pressure 01/16/24 01/16/24 01/16/24 History
cholecalciferol (vitamin D3) 25 25 mcg PO DAILY supplement 01/16/24 01/16/24 01/16/24 History
mcg (1,000 unit) capsule (Vitamin
D3)
cyanocobalamin (vitamin B-12) 1,000 mcg PO DAILY Supplement 01/16/24 01/16/24 01/16/24 History
1,000 mcg tablet (Vitamin B-12)
dextran 70-hypromellose 0.1 %-0.3 1 drp BOTH EYES QID PRN dry eyes 01/16/24 01/16/24 Unknown History
% eye drops (Artificial Tears
(dextran 70-hypromellose))
empagliflozin 10 mg tablet 10 mg PO DAILY Diabetes 01/16/24 01/16/24 01/16/24 History
(Jardiance)
hydralazine 50 mg tablet 50 mg PO TID blood pressure 01/16/24 01/16/24 01/16/24 History
lorazepam 0.5 mg tablet (Ativan) 0.5 mg PO DAILY PRN anxiety 01/16/24 01/16/24 Unknown History
nitroglycerin 0.4 mg sublingual 0.4 mg sublingual Q5-15M PRN chest 01/16/24 01/16/24 Unknown History
tablet pain
patiromer calcium sorbitex 8.4 8.4 g PO HS high potassium levels 01/16/24 01/16/24 01/15/24 History
gram oral powder packet (Veltassa)
rosuvastatin 10 mg tablet 10 mg PO DAILY High Cholesterol 01/16/24 01/16/24 01/16/24 History
sertraline 100 mg tablet 100 mg PO DAILY depression 01/16/24 01/16/24 01/16/24 History
Review of Systems
-
Unable to Obtain full review of systems at this time due to: Patient Intubation
Vitals / Labs / Diagnostic Testing
Vital Signs
Temp Pulse Resp BP Pulse Ox
96.5 F L 80 12 106/73 99
01/25/24 14:00 01/25/24 14:25 01/25/24 14:28 01/25/24 14:28 01/25/24 14:28
Lab Data
01/25/24 13:16
Laboratory Results
01/25/24
13:16
PT 18.0 H
INR 1.48
APTT 32.2
pH 7.41
pCO2 31 L
pO2 215 H
HCO3 19.6 L
O2 Delivery Level
Diagnostic Testing:
Physical Exam
-
HEENT: Normocephalic and Anicteric
Cardiovascular: S1/S2 and Peripheral Edema (negative)
Respiratory: Wheeze (Negative), Rales (negative), Rhonchi (negative) and Other (ETT in place; mechanical breath sounds bilaterally)
GI: Soft, Non Distended and Non Tender
Neurology: Other (Sedated but easily arousable to voice and follows commands)
Skin: Warm and Dry
General: Respiratory Distress (negative) and Chills (Negative)
Assessment
-
Assessment: 63-year-old male with a PMHx of CAD, PAD, CKD and DM type II who presented on 01/16/2020 for chest pain. Patient was admitted to the hospitalist service and cardiology consulted who performed a LHC which showed multivessel CAD with
poorly suited anatomy for PCI. Patient was referred for CABG which he underwent today. There were no immediate complications and patient was transferred to CVICU for postoperative care, and critical care services consulted for additional
management/recommendations.
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
Impression:
#Multivessel CAD s/p CABG x4 (POD#0)
#Acute on chronic anemia (baseline Hb 11-12g/dL)
#CKD (baseline Cr 1.6 - 1.8)
#DM type II
#Hx of [place] with coronary stents (2005)
#PAD
Plan:
Ventilator settings reviewed
FiO2 will be weaned to maitnain SpO2>94%
Minute ventilation will be adjusted
Arterial blood gases will be monitored
Spontaneous breathing trial will be attempted with hopeful extubation after anesthesia/sedation wear off
Pressors/antihypertensive/inotropes/diuretics will be provided as needed
Monitor chest tube output (pleural chest tube x2 and mediastinal chest tube x1)
Monitor hemoglobin
Monitor platelet count and coags
Transfuse blood product if needed and keep Hb>8g/dL, plt>50k
CT surgery managing chest tubes
Monitor blood sugar with goal BG 140-180mg/dL
Insulin drip per protocol
Aspiration precautions
VAP prevention protocol
DVT prophylaxis
Early nutrition
Early mobilization
Critical care statement: A total of 46 minutes of critical care time was provided for this patient today. This includes management of ventilator, spontaneous breathing trial, arterial blood gases, pressors, of unstable vital signs, evaluation of the
patient at bedside, reviewing the patient's pertinent medical records including radiographs, microbiology, laboratory evaluations, and discussion with primary team and critical care nursing.
Data:
CXR 01-25-2024:
Postoperative appearance of the chest, as described. No evidence of pneumothorax or congestive heart failure. Lungs are clear.
TTE 01-18-2024:
Normal left ventricular size with mild concentric remodeling and normal left
�ventricular systolic function. Normal regional wall motion.� LV ejection
�fraction is 55-60% by volumetric assessment. Stage I diastolic dysfunction
�suggestive of abnormal relaxation.
�Normal right ventricular size and function.
�Normal atria.
�There is calcification with restricted motion of the non-coronary/right
�coronary cusp with aortic sclerosis without stenosis.
�No other significant valve abnormalities.
�No evidence of pulmonary hypertension.
�
�No significant change since the prior study of 10/06/2022.
Left Heart Catheterization 01-17-2024:
CONCLUSIONS
1: Multivessel CAD as described
2: The anatomy is poorly suited to PCI and inpatient evaluation for CABG has been recommended with grafting of the LAD, ramus intermedius, OM1, and RPDA
3.� Total contrast used 24 cc Visipaque
[2024-01-25] MEDS: KCL 50 IV (14:45)
[2024-01-25 15:08] LABS: Glucose - Point of Care 139 mg/dl (70-99)
[2024-01-25] MEDS: PACERONE PO (15:12)
--- NOTE | 2024-01-25 15:30 | PTCARENOTE ---
RT at bedside and attempted cpap trial. Pt intermittently apneic. Will try again in 30 mins.
[2024-01-25 16:01] LABS: Glucose - Point of Care 129 mg/dl (70-99)
--- NOTE | 2024-01-25 16:10 | PTCARENOTE ---
Pt bathed with CHG wipes. Turned and repositioned. Pt tolerated. No significant dumps from chest tubes. RT at bedside to place pt on cpap trial. Pt tolerating, POX 100%.
[2024-01-25 16:57] LABS: B.E. -4.7 mmol/L; HCO3 20.3 mmol/L (21-28); O2 Saturation % 98.5 % (94-98); PCO2 36 mmHg (35-48); PO2 175 mmHg (83-108); Potassium 4.3 mMOL/L (3.5-5.1); pH 7.36 (7.35-7.45)
[2024-01-25 16:58] LABS: Hemoglobin 8.1 g/dL (13.0-18.0); Platelet Count 211 10^3/uL (130-400)
--- NOTE | 2024-01-25 17:00 | PTCARENOTE ---
Cpap ABG resulted. Pt needed very frequent reminders to stay awake and breathe otherwise would be apneic. CT JAVA ARCHITECT notified. Orders to place back on SIMV settings for now with RR at 16 and give 250mL albumin.
[2024-01-25 17:10] LABS: Glucose - Point of Care 126 mg/dl (70-99)
--- NOTE | 2024-01-25 17:15 | PTCARENOTE ---
Pt reassessed. Pt remains intubated, drowsy, but able to shake his head appropriately and squeeze hands and wiggle toes. 100% A-paced via temp pacer set to 80bpm. BP less labile than prior assessment, but still requires frequent gtt titration to
maintain goal BP. CVP 4. POX 100%. SIMV 40% 16 500 5/5. CT output WNL. UO adequate. All lines remain intact.
[2024-01-25] MEDS: STERILE WATER FOR INJECTION 8.30000000000000071 ML IV (17:38)
[2024-01-25] MEDS: ZINACEF 750 MG IV (17:38)
--- NOTE | 2024-01-25 17:53 | PTCARENOTE ---
CT INVENTORY CONTROL MANAGER notified that cuff BP is 20-30mmHg less than josiah. No new orders.
--- NOTE | 2024-01-25 18:00 | PTCARENOTE ---
RT at bedside to try patient on cpap trial again. pt tolerating POX 100%
[2024-01-25 18:05] LABS: Glucose - Point of Care 111 mg/dl (70-99)
[2024-01-25 18:36] LABS: B.E. -5.3 mmol/L; O2 Saturation % 98.8 % (94-98); PCO2 37 mmHg (35-48); PO2 182 mmHg (83-108); pH 7.34 (7.35-7.45)
--- NOTE | 2024-01-25 18:45 | PTCARENOTE ---
CPAP ABG resulted and CT HAM ROLLING MACHINE OPERATOR notified. Orders to extubate patient. RT at bedside and pt extubated to 6L NC. POX 100%, oriented x4 with hoarse voice. IS [id number] achieved.
--- NOTE | 2024-01-25 19:23 | PTCARENOTE ---
assumed care of pt from previous RN. pt drowsy, oriented x4, BRAVO. R IJ cordis w/ SLIC. L radial a-line. all lines leveled, zeroed, flushed. PIV x2 intact. levo and insulin infusing. see flowsheet for details. 100% a-paced w/ temp epicardial A/V
wires. settings AAI 80/4/0.6. POX 100% on [address] x3 (R & L pleural, mediastinal x1) to -20 cm wall suction. draining sanguineous drainage. no air leaks noted. tang catheter draining clear, yellow urine. sternal incision w/ aquacell, dressing
CDI. L groin puncture approximated w/ surgi-glue, EVIE. L knee incision approximated w/ surgi-glue, ron wrap intact. see worklist for complete nursing assessment, interventions, VS, and I&Os.
[2024-01-25 20:07] LABS: Glucose - Point of Care 107 mg/dl (70-99)
[2024-01-25] MEDS: NSS (PRESERVATIVE FREE) 8 ML IV (20:43)
[2024-01-25] MEDS: OFIRMEV 100 IV (20:43)
[2024-01-25] MEDS: PEPCID 20 MG IV (20:43)
[2024-01-25] MEDS: LOPRESSOR PO (20:44)
[2024-01-25] MEDS: LOW STRENGTH ASPIRIN 81 MG PO (20:55)
[2024-01-25] MEDS: PACERONE 200 MG PO (21:49)
[2024-01-25] MEDS: SENOKOT-S 1 TABLET PO (21:49)
[2024-01-25 21:56] LABS: Glucose - Point of Care 92 mg/dl (70-99)
[2024-01-26] VITALS (43 sets, daily range): BP systolic 69–126; BP diastolic 40–87; PULSE 80; O2SAT 96; BMI 27.4
[2024-01-26 00:05] LABS: Glucose - Point of Care 101 mg/dl (70-99)
[2024-01-26] MEDS: ROXICODONE 5 MG PO ×3 (00:09→16:11)
[2024-01-26] MEDS: TYLENOL 650 MG PO ×5 (00:10→19:46)
[2024-01-26 02:06] LABS: Glucose - Point of Care 99 mg/dl (70-99)
[2024-01-26] MEDS: STERILE WATER FOR INJECTION 8.30000000000000071 ML IV ×2 (03:31→09:50)
[2024-01-26] MEDS: ZINACEF 750 MG IV ×2 (03:32→09:50)
[2024-01-26 04:14] LABS: Glucose - Point of Care 99 mg/dl (70-99)
[2024-01-26 04:23] LABS: Hematocrit 22.6 % (39.0-52.0); Hemoglobin 7.5 g/dL (13.0-18.0); Mean Corp Hgb Conc. 33.2 g/dL (33.0-37.0); Mean Corpuscular Hgb 28.4 pg (27.0-31.0); Mean Corpuscular Volume 85.6 fL (80.0-94.0); Mean Platelet Volume 10.6 fL (7.4-10.4); Platelet Count 197 10^3/uL (130-400); Red Blood Cell Count 2.64 10^6/uL (4.70-6.10); Red Cell Dist. Width 14.3 % (11.5-14.5); White Blood Cell Count 15.1 10^3/uL (4.8-10.8)
[2024-01-26] MEDS: ROXICODONE 10 MG PO ×2 (04:35→19:47)
[2024-01-26 04:50] LABS: Blood Urea Nitrogen 31 mg/dl (9-20); Calcium 9.1 mg/dl (8.4-10.2); Carbon Dioxide 20 mmol/L (22-30); Chloride 112 mmol/L (98-107); Estimated Creatinine Clearance 41 ml/min; Glucose 93 mg/dl (70-99); Magnesium 2.5 mg/dl (1.6-2.3); Potassium 4.3 mmol/L (3.5-5.1); Sodium 143 mmol/L (135-145); eGFR 41.26
--- NOTE | 2024-01-26 06:16 | W.PN.CT ---
Today's Communication / Plan
-
-pod #1
-no issues overnight
-sinus edagrdo with frequent PACs, requiring intermittent a-pacing @ 45 bpm
-hemodynamically stable
-no swan
-drips: Insulin, Levo 1
-CT output: med 50/120 and 2 pleur 105/260 in 12/24 hrs (no air leak on either)
-h/h 7.5/22.6 today. BP 90s, map <65 when Levo was turned off this am. ? 1pRBC
-wean off Levo and deline
-d/c med CT and bulb pleurals
-minimize narcotics d/t cognitive issues
-avoid nsaids d/t CKD
-follow Cr - 1.8 today (baseline preop Cr 1.7, peaked at 2.1)
-encourage IS, OOB
Assessment / Plan
-
Assessment:
-Severe multivessel CAD- s/p CABG x4 (Holden-LAD, Y-graft off Vgmn-Kaiu-Wkmbq, Y-graft off Ele-OM1, SVG- PDA) by Dr. Benitez on 01/25/24, pod #1
-Hx CAD/ND S/P PCI with stent to ostial/prox. LAD, 2005
-Exertional angina
-First deg. HB
-HTN
-HLD
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
-Legally blind
-Right eye cataracts
-Acute on CKD3b (cr 1.7-1.8 baseline)
-Anemia preop
-PAD (B/L infrapopliteal stenosis)
-Mild cognitive impairment (cleared by Neurology)
-Medical non-compliant d/t lack of health insurance
-Anxiety/Depression
-Former tobacco use (quit 30 yrs ago)
-Acute on chronic postop blood loss anemia - no bleeding issues
-Acute postop atelectasis
-Acute postop hypovolemia with subsequent hypervolemia
Discussed patient care with: Nursing and Care Team
Subjective
Procedure
- s/p CABG x4 (Holden-LAD, Y-graft off Hlxo-Wuly-Kqgeu, Y-graft off Ele-OM1, SVG- PDA) by Dr. Benitez on 01/25/24
-
Date of Service: January 26, 2024
Objective Data
-
PT 18.0 Sec (11.4-14.6) H 01/25/24 13:16
INR 1.48 01/25/24 13:16
APTT 32.2 Sec (23.4-35.0) 01/25/24 13:16
Vital Signs
Vital Signs
Temp Pulse Resp BP Pulse Ox
97.3 F 60 15 110/64 100
01/26/24 00:00 01/26/24 01:30 01/26/24 01:30 01/26/24 01:00 01/26/24 01:30
CT Intake/Output/Weight
01/25/24 01/25/24 01/26/24
06:59 18:59 06:59
Intake Total 769.0 / 989.8 220.8 / 989.8
Output Total 905 / 1295 390 / 1295
Balance -136.0 / -305.2 -169.2 / -305.2
SaO2: 100
Physical Exam
-
General: Awake and AOx3
Cardiovascular: Regular rate & rhythm, No Murmurs and Rub
Respiratory: Decreased Breath Sounds
Sternum: Stable
Incision: Clean, Dry and Dressing Intact
Extremities: No Edema (1+ DP)
Abdomen: soft, nontender, nondistended, decreased bowel sounds
Data Reviewed
-
Lab Results: Results Reviewed
Medications: Active Meds Reviewed
Chest X-Ray: Report Reviewed and Image Reviewed
ECG: Report Reviewed and Image Reviewed
[2024-01-26 06:29] LABS: Glucose - Point of Care 99 mg/dl (70-99)
--- NOTE | 2024-01-26 08:00 | PTCARENOTE ---
Patient received from previous shift resting in bed, sleepy but arousable and appropriate. SA w/frequent ectopy noted via cm, SaO2 @ 99% on 2lnc. RIJ Cordis w/kvo infusing. Mediastinal chest tube, R + L pleural chest tubes (to separate pleuravacs),
to -20cm suction w/no air leaks noted. Epicardial A+V wires to pulse generator set to back up rate, no spikes noted. Costa catheter to gravity. Insulin infusing, titrating per glycemic protocol. Levophed infusing, see work list for titrations. All
procedural sites stable. Patient updated to plan of care for the day, in agreement. See work list for full assessment and interventions performed.
[2024-01-26 08:59] LABS: Glucose - Point of Care 108 mg/dl (70-99)
[2024-01-26] MEDS: LOPRESSOR PO (09:22)
[2024-01-26] MEDS: BACTROBAN 2% OINTMENT 1 APPLIC NASAL ×2 (09:45→19:48)
[2024-01-26] MEDS: PLAVIX 75 MG PO (09:46)
[2024-01-26] MEDS: CRESTOR 20 MG PO (09:46)
[2024-01-26] MEDS: ProAmatine 5 MG PO ×3 (09:48→17:47)
[2024-01-26] MEDS: MAGNESIUM OXIDE 500 MG PO ×2 (09:48→19:46)
[2024-01-26] MEDS: LOW STRENGTH ASPIRIN 81 MG PO (09:48)
[2024-01-26] MEDS: VITAMIN D3 (cholecalciferol) 25 MCG PO (09:48)
[2024-01-26] MEDS: VITAMIN B-12 1000 MCG PO (09:49)
[2024-01-26] MEDS: PEPCID 20 MG IV (09:49)
[2024-01-26] MEDS: SENOKOT-S 1 TABLET PO ×2 (09:49→19:46)
[2024-01-26] MEDS: ZOLOFT 100 MG PO (09:49)
[2024-01-26] MEDS: PACERONE 200 MG PO ×3 (09:49→21:20)
[2024-01-26] MEDS: NSS (PRESERVATIVE FREE) 8 ML IV (09:50)
--- NOTE | 2024-01-26 09:50 | W.PN.INTV ---
Today's Communication / Plan
Recommendations
Up OOB as tolerated
Pain control
Encourage IS
Patient downgraded to CVICU�telemetry status. Tongue And Quarter Stitcher/pulmonary service will now sign off. Thank you for allowing us to be involved in the care of this patient. Please reconsult if there are any additional questions or concerns, or if
respiratory status deteriorates.
Assessment
-
Assessment: 63-year-old male with a PMHx of CAD, PAD, CKD and DM type II who presented on 01/16/2020 for chest pain. Patient was admitted to the hospitalist service and cardiology consulted who performed a LHC which showed multivessel CAD with
poorly suited anatomy for PCI. Patient was referred for CABG which he underwent today. There were no immediate complications and patient was transferred to CVICU for postoperative care, and critical care services consulted for additional
management/recommendations.
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
Impression:
#Multivessel CAD s/p CABG x4 (POD#1)
#Acute on chronic anemia (baseline Hb 11-12g/dL - received 1 unit PRBC today
#CKD (baseline Cr 1.6 - 1.8)
#DM type II
#Hx of OR with coronary stents (2005)
#PAD
Plan:
Tolerated extubation
Maintain SpO2 >90-94%
Encourage incentive spirometry
Increase activity
Aspiration precautions
Pulmonary artery catheter and arterial line removed
Removal of R-IJ cordis as per CT surgery
Pressors have been weaned
Continue to monitor chest tube output (pleural chest tube x2 and mediastinal chest tube x1)
Follow hemoglobin
Continue to follow platelet count and coags
Transfuse blood product if needed and keep Hb>8g/dL, plt>50k
CT surgery managing chest tubes
Follow blood sugar with goal BG 140-180mg/dL
Insulin supplementation continues as needed
Early nutrition
Early mobilization
DVT prophylaxis
Patient transferred to telemetry phase-call pulmonary if respiratory issues arise.
Reviewed the patient's pertinent medical records including radiographs, microbiology, laboratory evaluations, and discussion with primary team, and critical care nursing.
Data:
CXR 01-26-2024: No acute cardiopulmonary process.
CXR 01-25-2024:
Postoperative appearance of the chest, as described. No evidence of pneumothorax or congestive heart failure. Lungs are clear.
TTE 01-18-2024:
Normal left ventricular size with mild concentric remodeling and normal left
�ventricular systolic function. Normal regional wall motion.� LV ejection
�fraction is 55-60% by volumetric assessment. Stage I diastolic dysfunction
�suggestive of abnormal relaxation.
�Normal right ventricular size and function.
�Normal atria.
�There is calcification with restricted motion of the non-coronary/right
�coronary cusp with aortic sclerosis without stenosis.
�No other significant valve abnormalities.
�No evidence of pulmonary hypertension.
�
�No significant change since the prior study of 10/06/2022.
Left Heart Catheterization 01-17-2024:
CONCLUSIONS
1: Multivessel CAD as described
2: The anatomy is poorly suited to PCI and inpatient evaluation for CABG has been recommended with grafting of the LAD, ramus intermedius, OM1, and RPDA
3.� Total contrast used 24 cc Visipaque
Subjective Dataa
Subjective Data
Date of Service:
Date of Service: January 26, 2024
Chief Complaint: Tongue And Quarter Stitcher Follow Up and Pulmonary Follow Up
Subjective:
Patient seen today at bedside. He is on room air breathing comfortably. Has left-sided lower rib pain. Right IJ cordis in place. No acute events reported overnight.
Review of Systems
General: Other (12 point ROS performed and is negative unless mentioned above.)
Objective Data
Data Reviewed
Vital Signs / I&O / Oxygen:
Vital Signs
Temp Pulse Resp BP Pulse Ox
97.1 F 74 12 107/57 94
01/26/24 09:00 01/26/24 09:30 01/26/24 09:30 01/26/24 09:00 01/26/24 09:30
Intake and Output
01/25/24 01/26/24 01/27/24
06:59 06:59 06:59
Intake Total 1052.4 / 1067.2 36.8 / 36.8
Output Total 1525 / 1545 80 / 80
Balance -472.6 / -477.8 -43.2 / -43.2
SaO2 [CPAP/PSV] 100
SaO2 [SIMV] 100
SaO2 94
Nasal Cannula flow liters per 2
minute
Physical Exam
General: Comfortable
HEENT: Normocephalic and Anicteric
Cardiovascular: S1-S2 and Peripheral Edema (negative)
Respiratory: Clear, Wheeze (negative), Crackles (negative) and Rhonchi (negative)
GI: Soft, Non Distended and Non Tender
Neurology: AO x 3
Skin: Dry
Labs/Micro/Reports
Lab Data
01/26/24 04:09
01/26/24 04:09
Laboratory Results
01/25/24 01/25/24 01/25/24
13:16 16:40 18:30
PT 18.0 H
INR 1.48
APTT 32.2
pH 7.41 7.36 7.34 L
pCO2 31 L 36 37
pO2 215 H 175 H 182 H
HCO3 19.6 L 20.3 L 20.0 L
O2 Delivery Level
[2024-01-26] MEDS: NOVOLIN R INSULIN INFUSION 100 IV (10:11)
--- NOTE | 2024-01-26 10:27 | W.PN.ANS.POP ---
Anesthesia Post Operative
- Anesthesia Post Op Note
Vital Signs Stable-See Nursing Note: Yes
Airway Patent: Yes
Adequate Pain Control: Yes
Change in Mental Status: No
Current Postoperative Nausea & Vomiting: No
Anesthesia Complications: No
General Anesthetic Recall: No
Unplanned Admission: No
Post Op Hydration Adequate: Yes
[2024-01-26 11:07] LABS: Glucose - Point of Care 82 mg/dl (70-99)
[2024-01-26] MEDS: NSS IV (11:14)
[2024-01-26] MEDS: LIDOCAINE 4% PATCH 1 PATCH TOPICAL (11:20)
[2024-01-26] MEDS: NEURONTIN 100 MG PO ×3 (11:20→21:20)
[2024-01-26] MEDS: TYLENOL PO (11:45)
[2024-01-26 13:07] LABS: Glucose - Point of Care 125 mg/dl (70-99)
--- NOTE | 2024-01-26 13:20 | PTCARENOTE ---
VS obtained, assessment stable. Cardiac rehab to room, attempted to get patient oob w/RN. Patient became dizzy, shaky, SBP to 70. Settled back to bed, SBP to 116. СЕРГЕЙ Janes notified.
[2024-01-26 14:02] LABS: Hematocrit 22.4 % (39.0-52.0); Hemoglobin 7.3 g/dL (13.0-18.0)
--- NOTE | 2024-01-26 14:56 | CM ---
Chart reviewed. Met with the patient and his friend Anna at bedside. Patient is independent of ADLS, lives alone in an apartment at [facility], 0 DME. Patient currently receives SURG PHYSICIAN ASST services through [facility] Community services M-F 4 hours a day. A
letter to request an increase in hours of care was faxed to [facility]. Waiting on response. Plan is for the patient to return home with CT Transitional RN. CM to follow
--- NOTE | 2024-01-26 16:19 | W.PN.CD ---
Today's Communication / Plan
-
OOB as able
Watch Hgb
Holding anti HTN meds
Continuing amio
Impression / Plan
-
CAD:s/p CABG x4 (Holden-LAD, Y-graft off Ekdz-Bxln-Otqam, Y-graft off Ele-OM1, SVG- PDA) by Dr. Benitez on 01/25/24
-He is in SR with frequent short atrial tachycardia improving by the afternoon
- cont amio
- holding BP meds given hypotension
-ASA/statin
-acute post-op anemia being monitored closely transfuse as needed
HTN:
-holding BP meds given hypotension
PAD:
-follows with Dr. Costa
HLD:
-Continue Crestor.
CKD3a:
-Followed by Dr. Cuadra at [place] - baseline is 1.5-1.7
-currently stable
Hx of remote closed head injury:
-chronic mild-mod cognitive impairment
Subjective:
Interval improvement however still has pain
Physical Exam
Vital Signs/Labs
Vital Signs
Temp Pulse Resp BP Pulse Ox
98 F 89 13 125/70 95
01/26/24 14:46 01/26/24 16:11 01/26/24 15:15 01/26/24 16:11 01/26/24 15:15
01/25/24 01/26/24 01/27/24
06:59 06:59 06:59
Actual Weight 169 lb 15.622 oz 185 lb 6.54 oz
01/26/24 13:43
01/26/24 04:09
PT 18.0 Sec (11.4-14.6) H 01/25/24 13:16
INR 1.48 01/25/24 13:16
APTT 32.2 Sec (23.4-35.0) 01/25/24 13:16
Magnesium 2.5 mg/dl (1.6-2.3) H 01/26/24 04:09
Physical Exam
Constitutional: No acute distress
EENT: Anicteric
Cardiovascular: Rhythm & rate is regular and Pedal edema is absent
Respiratory: Respiratory effort normal
GI: Soft
Neuro/Psych: Alert and Oriented
Data Reviewed
-
Date of Service: January 26, 2024
EKG: Tracing Personally Visualized and interpreted
Labs: Labs Reviewed by me
[2024-01-26 16:27] LABS: Glucose - Point of Care 107 mg/dl (70-99)
[2024-01-26 16:27] LABS: Glucose - Point of Care 94 mg/dl (70-99)
[2024-01-26] MEDS: NOVOLOG FLEXPEN-MODERATE RESISTANCE SC (16:30)
--- NOTE | 2024-01-26 16:35 | PTCARENOTE ---
VS obtained, stable. One unit PRBC's transfusion completed, patient tolerated well. Assisted oob to chair x 2 assist.
[2024-01-26] MEDS: FLEXERIL 10 MG PO (18:38)
[2024-01-26] MEDS: LOPRESSOR 12.5 MG PO (19:46)
[2024-01-26 21:31] LABS: Glucose - Point of Care 227 mg/dl (70-99)
--- NOTE | 2024-01-26 21:40 | PTCARENOTE ---
Received pt from anali WHALEN. Pt sitting OOB in chair, AAOx4. SA with ectopy on monitor. +rub. +palpable pulses. A and V wires insulated. No edema noted. RIJ cordis maintained with NSS KVO infusing. Pulse ox 93% on RA. Lung sounds diminished. CTx3
all to bulb suction, draining serosanguineous fluid. Abdomen soft/nontender. Hypoactive BS. Pt DTV, bladder scan 254 ml. HS blood sugar 227, received order from [facility] for 2 units Insulin. All surgical sites stable. See work list for full assessment
and interventions.
[2024-01-26] MEDS: NOVOLOG FLEXPEN 2 UNITS SC (21:49)
[2024-01-27] VITALS (29 sets, daily range): BP systolic 65–138; BP diastolic 34–123; PULSE 71–98; O2SAT 91–94; BMI 26.5
[2024-01-27] MEDS: CORDARONE 103 MG IV ×3 (00:26→22:06)
[2024-01-27] MEDS: CORDARONE 518 MG IV (00:27)
--- NOTE | 2024-01-27 00:30 | PTCARENOTE ---
Assessment remains unchanged from previous. Afib on monitor. Amio bolus given and Amio gtt infusing.
[2024-01-27] MEDS: TYLENOL PO ×2 (01:28→04:22)
[2024-01-27 03:26] LABS: Hematocrit 24.5 % (39.0-52.0); Hemoglobin 8.3 g/dL (13.0-18.0); Mean Corp Hgb Conc. 33.9 g/dL (33.0-37.0); Mean Corpuscular Hgb 28.4 pg (27.0-31.0); Mean Corpuscular Volume 83.9 fL (80.0-94.0); Mean Platelet Volume 10.5 fL (7.4-10.4); Platelet Count 171 10^3/uL (130-400); Red Blood Cell Count 2.92 10^6/uL (4.70-6.10); Red Cell Dist. Width 15.4 % (11.5-14.5); White Blood Cell Count 13.5 10^3/uL (4.8-10.8)
[2024-01-27 03:50] LABS: Blood Urea Nitrogen 41 mg/dl (9-20); Calcium 8.3 mg/dl (8.4-10.2); Carbon Dioxide 25 mmol/L (22-30); Chloride 104 mmol/L (98-107); Estimated Creatinine Clearance 33 ml/min; Glucose 215 mg/dl (70-99); Sodium 135 mmol/L (135-145); eGFR 32.43
--- NOTE | 2024-01-27 04:00 | PTCARENOTE ---
Assessment unchanged from previous. Afib on monitor. Pt bladder scanned for 384 mls, unable to void. Pt straight cathed for 400 ml joy colored urine. AM labs obtained and sent. Amio gtt continues to infuse per order.
--- NOTE | 2024-01-27 05:47 | W.PN.CT ---
Today's Communication / Plan
-
-pod#2
-went into a-fib 70s-80s - tx with Amio bolus and drip. Lopressor restarted last night
-urinary retention - s/p straight cath 400cc at 4am
-orthostasis - started on Midodrine, got 1 pRBC on
-h/h 8.3/24.5 today (7.3/22.4 on )
-Cr 2.2 (1.8 on and 1.7 preop)
-continue Amio drip
-encourage IS, OOB
Assessment / Plan
-
Assessment:
-Severe multivessel CAD- s/p CABG x4 (Holden-LAD, Y-graft off Xvpy-Cwre-Lvebf, Y-graft off Ele-OM1, SVG- PDA) by Dr. Benitez on 01/25/24, pod #2
-Hx CAD/[place] S/P PCI with stent to ostial/prox. LAD, 2005
-Exertional angina
-First deg. HB
-HTN
-HLD
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
-Legally blind
-Right eye cataracts
-Acute on CKD3b (cr 1.7-1.8 baseline)
-Anemia preop
-PAD (B/L infrapopliteal stenosis)
-Mild cognitive impairment (cleared by Neurology)
-Medical non-compliant d/t lack of health insurance
-Anxiety/Depression
-Former tobacco use (quit 30 yrs ago)
-Acute on chronic postop blood loss anemia - no bleeding issues
-Acute postop atelectasis
-Acute postop hypovolemia with subsequent hypervolemia
-Acute postop orthostasis - started on Midodrine, got 1 pRBC on
-Acute postop a-fib 70s-80s - tx with Amio bolus and drip
-Acute postop urinary retention - s/p straight cath 400cc on 01/26
Discussed patient care with: Nursing and Care Team
Subjective
Procedure
- s/p CABG x4 (Holden-LAD, Y-graft off Buyh-Cwwf-Odzxq, Y-graft off Ele-OM1, SVG- PDA) by Dr. Benitez on 01/25/24
-
Date of Service: January 27, 2024
Objective Data
-
Lab Results
01/27/24 03:17
01/27/24 03:17
PT 18.0 Sec (11.4-14.6) H 01/25/24 13:16
INR 1.48 01/25/24 13:16
APTT 32.2 Sec (23.4-35.0) 01/25/24 13:16
Vital Signs
Vital Signs
Temp Pulse Resp BP Pulse Ox
98.2 F 64 16 93/63 97
01/27/24 03:51 01/27/24 04:00 01/27/24 03:51 01/27/24 03:52 01/27/24 04:00
CT Intake/Output/Weight
01/26/24 01/26/24 01/27/24
06:59 18:59 06:59
Intake Total 283.4 / 1067.2 783.2 / 866.5 83.3 / 866.5
Output Total 620 / 1545 430 / 940 510 / 940
Balance -336.6 / -477.8 353.2 / -73.5 -426.7 / -73.5
SaO2: 97
Physical Exam
-
General: Awake and AOx3
Cardiovascular: irregular rate & rhythm, No Murmurs and Rub
Respiratory: Decreased Breath Sounds
Sternum: Stable
Incision: Clean, Dry and Dressing Intact
Extremities: No Edema (1+ DP)
Abdomen: soft, nontender, nondistended, decreased bowel sounds
Data Reviewed
-
Lab Results: Results Reviewed
Medications: Active Meds Reviewed
Chest X-Ray: Report Reviewed and Image Reviewed
ECG: Report Reviewed and Image Reviewed
[2024-01-27] MEDS: ProAmatine 10 MG PO ×3 (05:52→18:21)
[2024-01-27 07:36] LABS: Glucose - Point of Care 204 mg/dl (70-99)
[2024-01-27] MEDS: PROTONIX 40 MG PO (07:45)
[2024-01-27] MEDS: TYLENOL 650 MG PO ×4 (07:45→20:21)
[2024-01-27] MEDS: LOW STRENGTH ASPIRIN 81 MG PO (07:45)
[2024-01-27] MEDS: LIDOCAINE 4% PATCH 1 PATCH TOPICAL (07:45)
[2024-01-27] MEDS: MAGNESIUM OXIDE 500 MG PO ×2 (07:46→20:21)
[2024-01-27] MEDS: VITAMIN D3 (cholecalciferol) 25 MCG PO (07:46)
[2024-01-27] MEDS: NEURONTIN 100 MG PO ×3 (07:46→22:11)
[2024-01-27] MEDS: SENOKOT-S 1 TABLET PO ×2 (07:46→20:21)
[2024-01-27] MEDS: CRESTOR 20 MG PO (07:46)
[2024-01-27] MEDS: VITAMIN B-12 1000 MCG PO (07:46)
[2024-01-27] MEDS: FLEXERIL 5 MG PO (07:46)
[2024-01-27] MEDS: BACTROBAN 2% OINTMENT 1 APPLIC NASAL ×2 (07:47→20:21)
[2024-01-27] MEDS: PACERONE 200 MG PO ×3 (07:47→22:32)
[2024-01-27] MEDS: PLAVIX 75 MG PO (07:47)
[2024-01-27] MEDS: ZOLOFT 100 MG PO (07:47)
--- NOTE | 2024-01-27 08:10 | PTCARENOTE ---
Received pt from night auditor RN; pt AAOx3 and resting comfortably in chair; A-fib on monitor and VSS; Epicardial wires set to back up AAI 30/10 and no pacing noted; RIJ Cordis and PIVx1 all patent; Amiodarone infusing see flow sheet for details;
lungs diminished; IS to 750; CT x3 to bulb; hypoactive bowel sounds; pt straight cath at 0330; palpable pulses throughout; trace bilateral hand edema; all surgical sites C/D/I; see nursing documentation for further details.
[2024-01-27] MEDS: JARDIANCE 10 MG PO (08:51)
[2024-01-27] MEDS: NOVOLOG FLEXPEN-MODERATE RESISTANCE 3 UNITS SC (08:57)
[2024-01-27] MEDS: LOPRESSOR PO ×2 (09:09→20:22)
--- NOTE | 2024-01-27 09:11 | W.PN.CD ---
Today's Communication / Plan
-
cont IV amiodarone, and trend tele for A fib
eventual eliquis (and stop plavix)
hold farxiga and trend Cr
Impression / Plan
-
CAD: s/p CABG x4 (Holden-LAD, Y-graft off Nvni-Vxnd-Znskq, Y-graft off Ele-OM1, SVG- PDA) by Dr. Benitez on 01/25/24
-presented with unstable angina
-post op SALLY: EF 60%
-ASA/statin
Post op A fib
-cont IV amiodarone
-CHADS2-VASC = 4. Eventual eliquis 5mg bid (and stop plavix)
VITOR on CKD3b:
-hold farxiga, and trend Cr
HTN:
-holding BP meds given hypotension
PAD:
-follows with Dr. Costa
HLD:
-Continue Crestor.
Hx of remote closed head injury:
-chronic mild-mod cognitive impairment
DM
Subjective:
Sitting in chair. +fatigue
Physical Exam
Vital Signs/Labs
Vital Signs
Temp Pulse Resp BP Pulse Ox
98.1 F 83 20 102/61 93
01/27/24 08:00 01/27/24 08:30 01/27/24 08:00 01/27/24 07:29 01/27/24 08:00
01/26/24 01/27/24 01/28/24
06:59 06:59 06:59
Actual Weight 84.1 kg 81.3 kg
01/27/24 03:17
01/27/24 03:17
PT 18.0 Sec (11.4-14.6) H 01/25/24 13:16
INR 1.48 01/25/24 13:16
APTT 32.2 Sec (23.4-35.0) 01/25/24 13:16
Magnesium 2.5 mg/dl (1.6-2.3) H 01/26/24 04:09
Physical Exam
Constitutional: No acute distress and Comfortable
EENT: Moist mucous membranes
Cardiovascular: Pedal edema is absent, JVD pressure is normal, Systolic murmur absent and Rhythm/rate is irregular
Respiratory: Respiratory effort normal, Lungs clear to auscul. and Wheeze Absent
GI: Soft and Distention absent
Neuro/Psych: AO x 3
Data Reviewed
-
Date of Service: January 27, 2024
EKG: Other (Tele: A fib 80s)
Labs: Labs Reviewed by me
--- NOTE | 2024-01-27 10:15 | PTCARENOTE ---
Pt worked with cardiac rehab, upon standing with RN and cardiac restorative rehab aide pt BP 65/34, pt became pale and presyncopal; pt placed back to bed, sitting BP 81/46 and laying BP 93/51; HR remained 80s during episode; updated R Janes CV WELFARE SPECIALIST and Dr Benitez
in to round on pt.
[2024-01-27] MEDS: ALBUMIN 5% 250 IV (10:31)
--- NOTE | 2024-01-27 10:38 | PTCARENOTE ---
Chest tubes x3 removed per CV WORKERS COMPENSATION ATTORNEY order; A and V wires insulated; Albumin 5% 250mls IV infusing per order.
[2024-01-27] MEDS: NSS 500 IV ×2 (13:00→13:07)
[2024-01-27] MEDS: NOVOLOG FLEXPEN-HIGH RESISTANCE 7 UNITS SC (13:06)
[2024-01-27 13:12] LABS: Glucose - Point of Care 266 mg/dl (70-99)
--- NOTE | 2024-01-27 13:30 | PTCARENOTE ---
A- fib on monitor and VSS: assessment unchanged; family at bedside.
--- NOTE | 2024-01-27 14:28 | CM ---
Addendum entered by Pastora Martin RN 01/27/24 15:01:
Patient is approved 8 hours a day, 7 days a week.
Addendum entered by Pastora Martin RN 01/27/24 14:48:
Please call patient's friend Anna Powell when going out to see the patient,
Original Note:
Chart reviewed. Patient is independent of ADLS, lives alone in an apartment at [facility], [facility]. Patient receives CISCO ADMINISTRATOR services through [facility] Community Services M-F 4 hours a day. A request to increase his hours was submitted and accepted.
Patient now we receive 8 hours of CISCO ADMINISTRATOR services starting 01/28-02/25. [facility] support services specialist will need to be notified of his discharge date, so they can start services. Please call her at [phone]. The plan is for the
patient to return home with a CISCO ADMINISTRATOR and CT Transitional RN. MICAELA to follow
--- NOTE | 2024-01-27 15:31 | PTCARENOTE ---
Vital signs stable. Afib. HR 70s-80s. BP 115/59. RA. Oxygen saturation 92%. Assist x2 to stand up and attempt to void in the urinal. Orthostatic vitals obtained for sitting then standing. Patient appears very pale and diaphoretic. He was unable to
void. Bladder scanned 468cc - CV SOCIAL SECURITY BENEFITS INTERVIEWER notified and she said to rescan in 3hrs. No intervention at this time.
[2024-01-27 18:20] LABS: Glucose - Point of Care 217 mg/dl (70-99)
[2024-01-27] MEDS: NOVOLOG FLEXPEN-HIGH RESISTANCE 4 UNITS SC (18:20)
--- NOTE | 2024-01-27 20:00 | PTCARENOTE ---
Assumed care of pt from previous shift RN. Pt sitting OOB in chair, denies pain. Afib on monitor. +palpable pulses. Trace edema noted to B/L LEs and B/L hands. A&V wires insulated.RIJ cordis maintained. Amio gtt infusing. Pulse ox 93% on 2 L NC.
Lung sounds diminished throughout. +productive cough. IS encouraged. Pt unable to void at this time. Bladder scan 796 ml. All surgical sites C/D/I. See work list for full assessment and interventions.
[2024-01-27] MEDS: CALCIUM CHLORIDE 10% SYRINGE 60 MG IV (20:06)
--- NOTE | 2024-01-27 20:45 | PTCARENOTE ---
Pt bladder scanned for 796 ml. CVPA made aware, new order received to place tang catheter. Tang catheter placed, pt tolerated well. 725 mls of urine emptied.
[2024-01-27] MEDS: LANTUS 0.100000000000000006 UNITS SC (22:10)
[2024-01-27 22:11] LABS: Glucose - Point of Care 213 mg/dl (70-99)
[2024-01-28] VITALS (21 sets, daily range): BP systolic 93–156; BP diastolic 42–86; PULSE 64–77; O2SAT 95–96; BMI 26.0
[2024-01-28] MEDS: TYLENOL PO ×2 (00:14→04:19)
--- NOTE | 2024-01-28 00:20 | PTCARENOTE ---
Assessment unchanged from previous. VSS. Afib on monitor. Amio gtt complete. Costa draining clear, yellow urine.
[2024-01-28 03:14] LABS: Ionized Calcium 1.26 mMOL/L (1.15-1.33)
[2024-01-28 03:28] LABS: Hematocrit 23.1 % (39.0-52.0); Hemoglobin 7.7 g/dL (13.0-18.0); Mean Corp Hgb Conc. 33.3 g/dL (33.0-37.0); Mean Corpuscular Hgb 27.7 pg (27.0-31.0); Mean Corpuscular Volume 83.1 fL (80.0-94.0); Mean Platelet Volume 10.6 fL (7.4-10.4); Platelet Count 174 10^3/uL (130-400); Red Blood Cell Count 2.78 10^6/uL (4.70-6.10); Red Cell Dist. Width 15.3 % (11.5-14.5)
[2024-01-28 03:51] LABS: Blood Urea Nitrogen 42 mg/dl (9-20); Calcium 8.4 mg/dl (8.4-10.2); Carbon Dioxide 22 mmol/L (22-30); Chloride 106 mmol/L (98-107); Estimated Creatinine Clearance 32 ml/min; Glucose 158 mg/dl (70-99); Magnesium 2.7 mg/dl (1.6-2.3); Potassium 4.4 mmol/L (3.5-5.1); Sodium 133 mmol/L (135-145); eGFR 30.74
--- NOTE | 2024-01-28 06:23 | W.PN.CT ---
Today's Communication / Plan
-
-No major issues overnight. Hemodynamically and neurologically intact
-Converted to sinus edgardo with 5 sec pause this AM @ ~ 0200. Had been in a-fib for approximately 26 hrs
-Bladder scanned last night for ~ 800 mL of urine, tang catheter reinserted, drained 1800 mL of post reinsertion. Had been straight cathed prior in the AM
-Pt lightheaded/dizzy near syncopal episode this AM while trying to get OOB into chair, h/h 7.06/19, consider 1u PRBC
-Transfusion should help with weaning off Midodrine as well as assist with renal perfusion
-Cr 2.3 this AM, was 2.2 yesterday, 1.7-1.8 preop
-Cont. ASA, Plavix. Placed Lopressor on hold last night
-Keep cordis another day
-Keep tang catheter another day
-Maintain temporary A/V wires (will cut before d/c home)
Assessment / Plan
-
Assessment:
-Severe multivessel CAD- s/p CABG x4 (Holden-LAD, Y-graft off Eapj-Ehge-Qyctb, Y-graft off Ele-OM1, SVG- PDA) by Dr. Benitez on 01/25/24, pod #3
-Hx CAD/[place] S/P PCI with stent to ostial/prox. LAD, 2005
-Exertional angina
-First deg. HB
-HTN
-HLD
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
-Legally blind
-Right eye cataracts
-Acute on CKD3b (cr 1.7-1.8 baseline)
-Anemia preop
-PAD (B/L infrapopliteal stenosis)
-Mild cognitive impairment (cleared by Neurology)
-Medical non-compliant d/t lack of health insurance
-Anxiety/Depression
-Former tobacco use (quit 30 yrs ago)
-Acute on chronic postop blood loss anemia - no bleeding issues
-Acute postop atelectasis
-Acute postop hypovolemia with subsequent hypervolemia
-Acute postop orthostasis - started on Midodrine, got 1 pRBC on
-Acute postop a-fib 70s-80s - tx with Amio bolus and drip
-Acute postop urinary retention - s/p straight cath 400cc on 01/26
Discussed patient care with: Cardiology, Nursing, Respiratory Therapy, Pharmacy and Care Team
Subjective
Procedure
- s/p CABG x4 (Holden-LAD, Y-graft off Poxl-Bqvm-Bzmrt, Y-graft off Ele-OM1, SVG- PDA) by Dr. Benitez on 01/25/24
-
Date of Service: January 28, 2024
Pt lightheaded/dizzy near syncopal episode this AM while trying to get OOB into chair
Objective Data
-
Lab Results
01/28/24 03:08
01/28/24 03:08
PT 18.0 Sec (11.4-14.6) H 01/25/24 13:16
INR 1.48 01/25/24 13:16
APTT 32.2 Sec (23.4-35.0) 01/25/24 13:16
Vital Signs
Vital Signs
Temp Pulse Resp BP Pulse Ox
98.1 F 62 20 134/63 97
01/28/24 04:54 01/28/24 04:54 01/28/24 04:54 01/28/24 04:54 01/28/24 04:54
CT Intake/Output/Weight
01/27/24 01/27/24 01/28/24
06:59 18:59 06:59
Intake Total 386.4 / 1169.6 1263.6 / 1390.2 126.6 / 1390.2
Output Total 510 / 940 105 / 1905 1800 / 1905
Balance -123.6 / 229.6 1158.6 / -514.8 -1673.4 / -514.8
SaO2: 97 (2L)
Physical Exam
-
General: Awake, Oriented and AOx3
Cardiovascular: Regular rate & rhythm, No Murmurs, No Rub and No Gallop
Respiratory: Decreased Breath Sounds
Sternum: Stable
Incision: Clean, Dry, Intact and Dressing Intact
Extremities: No Edema
Data Reviewed
-
Lab Results: Results Reviewed
Medications: Active Meds Reviewed
Chest X-Ray: Report Reviewed and Image Reviewed
ECG: Report Reviewed and Image Reviewed
[2024-01-28] MEDS: PACERONE 200 MG PO ×3 (08:31→22:04)
[2024-01-28] MEDS: BACTROBAN 2% OINTMENT 1 APPLIC NASAL ×2 (08:31→22:12)
[2024-01-28] MEDS: LOW STRENGTH ASPIRIN 81 MG PO (08:32)
[2024-01-28] MEDS: PROTONIX 40 MG PO (08:32)
[2024-01-28] MEDS: SENOKOT-S 1 TABLET PO ×2 (08:32→22:04)
[2024-01-28] MEDS: CRESTOR 20 MG PO (08:32)
[2024-01-28] MEDS: VITAMIN D3 (cholecalciferol) 25 MCG PO (08:32)
[2024-01-28] MEDS: ProAmatine 10 MG PO ×3 (08:32→18:23)
[2024-01-28] MEDS: PLAVIX 75 MG PO (08:32)
[2024-01-28] MEDS: LOPRESSOR PO (08:33)
[2024-01-28] MEDS: VITAMIN B-12 1000 MCG PO (08:33)
[2024-01-28] MEDS: ZOLOFT 100 MG PO (08:33)
[2024-01-28] MEDS: LIDOCAINE 4% PATCH 1 PATCH TOPICAL (08:33)
[2024-01-28 08:42] LABS: Glucose - Point of Care 169 mg/dl (70-99)
[2024-01-28] MEDS: NOVOLOG FLEXPEN-HIGH RESISTANCE 2 UNITS SC ×2 (09:20→16:55)
--- NOTE | 2024-01-28 09:35 | PTCARENOTE ---
Received pt for 7a shift. Pt AAOx3, blind in R eye, legally blind in L eye at baseline. VSS while sitting in bed bp 122/86, T 99.9, Pt c/o feeling tired. CTPA Amelia aware, in to see pt. Medications administered as ordered. Pt denies pain at this
time. A wire insulated, V wire connected to pacer box for backup, hr30 mA10. RIJ cordis kvo infusing without complications. Costa draining clear yellow urine. Blood glucose 169-2 units novolog administered with breakfast as ordered. Pt demonstrates
use of call meier system. Will continue to monitor.
[2024-01-28] MEDS: NEURONTIN PO (11:06)
[2024-01-28] MEDS: FLOMAX 0.400000000000000022 MG PO (11:50)
[2024-01-28] MEDS: TYLENOL 650 MG PO ×2 (11:50→22:11)
[2024-01-28 12:56] LABS: Glucose - Point of Care 200 mg/dl (70-99)
[2024-01-28] MEDS: NOVOLOG FLEXPEN-HIGH RESISTANCE 4 UNITS SC (12:56)
--- NOTE | 2024-01-28 13:12 | W.PN.CD ---
Today's Communication / Plan
-
- trial of tamsulosin
- continue supportive care
Impression / Plan
-
CAD: s/p CABG x4 (Holden-LAD, Y-graft off Pckg-Qovj-Grqtw, Y-graft off Ele-OM1, SVG- PDA) by Dr. Benitez on 01/25/24
-presented with unstable angina
-post op SALLY: EF 60%
-ASA/statin
Post op A fib ~26 hrs in duration
-cont IV amiodarone
-CHADS2-VASC = 4. Eventual eliquis 5mg bid (and stop plavix)
- He is back in sinus, however, did have a significant 5s conversion pause
VITOR on CKD3b:
-hold farxiga, and trend Cr
HTN:
-holding BP meds given hypotension
PAD:
-follows with Dr. Costa
HLD:
-Continue Crestor.
Hx of remote closed head injury:
-chronic mild-mod cognitive impairment
DM
Subjective:
Sitting in chair. +fatigue
Physical Exam
Vital Signs/Labs
Vital Signs
Temp Pulse Resp BP Pulse Ox
98.9 F 67 20 135/56 92
01/28/24 11:49 01/28/24 11:51 01/28/24 11:49 01/28/24 11:51 01/28/24 11:49
01/27/24 01/28/24 01/29/24
06:59 06:59 06:59
Actual Weight 179 lb 3.773 oz 175 lb 11.335 oz
01/28/24 03:08
01/28/24 03:08
PT 18.0 Sec (11.4-14.6) H 01/25/24 13:16
INR 1.48 01/25/24 13:16
APTT 32.2 Sec (23.4-35.0) 01/25/24 13:16
Magnesium 2.7 mg/dl (1.6-2.3) H 01/28/24 03:08
Physical Exam
Constitutional: Other (fatigued)
EENT: Anicteric
Cardiovascular: Rhythm & rate is regular
Respiratory: Respiratory effort normal and Lungs clear to auscul.
GI: Soft
Neuro/Psych: AO x 3
Data Reviewed
-
Date of Service: January 28, 2024
EKG: Tracing Personally Visualized and interpreted
Labs: Labs Reviewed by me
--- NOTE | 2024-01-28 13:35 | PTCARENOTE ---
Resume pt care. Walking rounds completed with previous RN. Pt OOB in chair at time of assessment, AAO x 4. Reports intermittent sacral pain when sitting - cushion applied to chair. Pt previously administered PRN Tylenol for back pain with
alleviation. Pt on RA, posterior BS clear, diminished in R/L bases, IS performed to 1000 mL - CDB encouraged, pt denies SOB. Pt in NSR on monitor, HR 60's, epicardial wires present, heart tones normal, +2 R DP pulse, +1 L DP, no LE edema present. Pt
assist x 2 to stand, sternal precautions reinforces. BS audible, reports improving appetite, denies n/v. Indwelling catheter draining clear/yellow. Procedural sites intact. RIJ placed to KVO. PIV x 1 patent. Friend at bedside and provided with
update and education with postoperative care.
[2024-01-28] MEDS: NSS IV (14:22)
[2024-01-28 16:58] LABS: Glucose - Point of Care 183 mg/dl (70-99)
--- NOTE | 2024-01-28 18:45 | PTCARENOTE ---
Pt remained OOB in chair for day. Tolerated ambulating to BR with assistance x 2, BM x 1. Pt assisted back into bed. No other changes.
--- NOTE | 2024-01-28 20:36 | PTCARENOTE ---
Addendum entered by Alexx Cruz RN 01/29/24 06:56:
A+V wires present.
Original Note:
Assumed care of patient at 1900. Patient found in bed asleep at time of assessment. Patient is AOx4, legally blind in R eye with cataracts, and blind in L eye. Patient has a flat affect and reports some visual hallucinations during the day none at
this time. Lung sounds are diminished in the bases otherwise clear, RA, nonproductive occasional cough, saO2 at 89% patient placed on 2L via NC. Patient reports history of sleep apnea when overweight but has not had apnea for years since weight
improved. CT PA notified advised fluid restriction at this time. Heart sounds have a regular rate and rhythm. Patient is NSR on the monitor. V wires in place to box pending insulation. Weak left pedal pulses, normal right pedal pulse. Normal radial
pulses. No edema is noted. Patient has active BS throughout all four quadrants. There is tang catheter in place for urinary retention that is draining clear yellow. Patient has a sternal incision with aquacell dressing that is CDI, an ABD dressing
over CT wounds that is CDI, a L groin puncture approx with surg adhesive [facility], and a LLE incision approx with surg adhesive EVIE. Patient has a R IJ cordis with KVO and a R arm PIV for intermittent infusion. Slightly elevated temperature noted 99.7
patient's room set at 80 degrees ambient temperature adjusted will reassess. HR and BP stable.
[2024-01-28 22:08] LABS: Glucose - Point of Care 159 mg/dl (70-99)
[2024-01-28] MEDS: LANTUS 0.100000000000000006 UNITS SC (22:11)
[2024-01-29] VITALS (24 sets, daily range): BP systolic 91–159; BP diastolic 60–105; PULSE 79–108; BMI 26.6; BMI 26.7
--- NOTE | 2024-01-29 00:45 | PTCARENOTE ---
Patient reasesed. Patient has temperature of 100.7 appears mildly diaphoretic. Administered tylenol. Cold compress applied. Patient reports chills visibly shivering. Notified CT PA. Advised monitoring at this time. Remains NSR on the monitor.
[2024-01-29] MEDS: OFIRMEV 100 IV (02:07)
--- NOTE | 2024-01-29 03:00 | PTCARENOTE ---
Patient converted to afib at 0239. HR ranging 80s-90s. CT PA notified. Advised to obtain labs now. Patient reports no signs or symptoms. Will continue to monitor and perform interventions as indicated.
--- NOTE | 2024-01-29 03:15 | W.PN.CT ---
Today's Communication / Plan
-
-No major issues overnight. Hemodynamically and neurologically intact
-Pt back in a-fib (rate controlled @ 70-90's) @ 0240. Amiodarone bolus x 1 administered. Remains on Midodrine
-Temporary pacer connected and @ backup VVI of 30 bpm
-Will likely require oral anticoagulation given recurrent a-fib with [id number] of 3
-Will obtain type and cross and administer 1u PRBC given h/h of 7.0/21.1, hypotension with c/o lightheadedness/weakness
-Will try to wean off Midodrine today if BP permits after transfusion
-Will consider d/c of tang today with voiding trials and assessment of postvoid residuals. Received Flomax yesterday
-Creatinine 2.2 today, was 2.3 yesterday, 1.7-1.8 preop
-Will likely leave cordis another day given PAF (may need to resume amiodarone gtt)
-Will push 2-view cxr to tomorrow given c/o lightheadedness/weakness
-Will replete K
-Hyponatremia is improving, 134 today, was 133 yesterday. Cont. fluid restriction
-Cont. ASA, Plavix, Amiodarone; Lopressor remains on hold while on Midodrine
-Maintain temporary A/V wires (will cut before d/c home)
-Encourage use of IS
-Wean off of O2
-OOB into chair/Ambulate
-Home in 1-2 days
Assessment / Plan
-
Assessment:
-Severe multivessel CAD- s/p CABG x4 (Holden-LAD, Y-graft off Lems-Jwen-Gyate, Y-graft off Ele-OM1, SVG- PDA) by Dr. Benitez on 01/25/24, pod #4
-Hx CAD/OR S/P PCI with stent to ostial/prox. LAD, 2005
-Exertional angina
-First deg. HB
-HTN
-HLD
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
-Legally blind
-Right eye cataracts
-Acute on CKD3b (cr 1.7-1.8 baseline)
-Anemia preop
-PAD (B/L infrapopliteal stenosis)
-Mild cognitive impairment (cleared by Neurology)
-Medical non-compliant d/t lack of health insurance
-Anxiety/Depression
-Former tobacco use (quit 30 yrs ago)
-Acute on chronic postop blood loss anemia - no bleeding issues
-Acute postop atelectasis
-Acute postop hypovolemia with subsequent hypervolemia
-Acute postop orthostasis - started on Midodrine, got 1 pRBC on
-Acute postop a-fib 70s-80s - tx with Amio bolus and drip
-Acute postop urinary retention - s/p straight cath 400cc on 01/26
Discussed patient care with: Cardiology, Nursing, Respiratory Therapy, Pharmacy and Care Team
Subjective
Procedure
- s/p CABG x4 (Holden-LAD, Y-graft off Qauu-Xwpq-Bfdrv, Y-graft off Ele-OM1, SVG- PDA) by Dr. Benitez on 01/25/24
-
Date of Service: January 29, 2024
Pt c/o mild incisional pain and feeling weak
Objective Data
-
PT 18.0 Sec (11.4-14.6) H 01/25/24 13:16
INR 1.48 01/25/24 13:16
APTT 32.2 Sec (23.4-35.0) 01/25/24 13:16
Vital Signs
Vital Signs
Temp Pulse Resp BP Pulse Ox
99.3 F 87 20 109/66 97
01/29/24 03:00 01/29/24 03:00 01/29/24 03:00 01/29/24 03:00 01/29/24 03:00
CT Intake/Output/Weight
01/28/24 01/28/24 01/29/24
06:59 18:59 06:59
Intake Total 186.6 / 1450.2 710 / 750 40 / 750
Output Total 2150 / 2255 1050 / 1475 425 / 1475
Balance -1963.4 / -804.8 -340 / -725 -385 / -725
SaO2: 97 (2L)
Physical Exam
-
General: Awake, Oriented and AOx3
Cardiovascular: No Murmurs, No Rub and No Gallop
Respiratory: Decreased Breath Sounds (at bases)
Sternum: Stable
Incision: Clean, Dry, Intact and Dressing Intact
Extremities: No Edema
Data Reviewed
-
Lab Results: Results Reviewed
Medications: Active Meds Reviewed
Chest X-Ray: Report Reviewed and Image Reviewed
ECG: Report Reviewed and Image Reviewed
[2024-01-29] MEDS: CORDARONE 103 MG IV ×3 (03:30→23:07)
[2024-01-29 03:39] LABS: Blood Urea Nitrogen 41 mg/dl (9-20); Calcium 7.9 mg/dl (8.4-10.2); Carbon Dioxide 24 mmol/L (22-30); Chloride 108 mmol/L (98-107); Estimated Creatinine Clearance 33 ml/min; Glucose 115 mg/dl (70-99); Magnesium 2.5 mg/dl (1.6-2.3); Potassium 3.9 mmol/L (3.5-5.1); Sodium 134 mmol/L (135-145); eGFR 32.43
[2024-01-29 03:46] LABS: Hematocrit 21.1 % (39.0-52.0); Mean Corp Hgb Conc. 33.2 g/dL (33.0-37.0); Mean Corpuscular Hgb 28.2 pg (27.0-31.0); Mean Corpuscular Volume 85.1 fL (80.0-94.0); Mean Platelet Volume 10.5 fL (7.4-10.4); Platelet Count 170 10^3/uL (130-400); Red Blood Cell Count 2.48 10^6/uL (4.70-6.10); White Blood Cell Count 6.3 10^3/uL (4.8-10.8)
--- NOTE | 2024-01-29 03:46 | PTCARENOTE ---
Received order for amio bolus. Promptly administered, finished at this time. Patient remains in afib HR ranging 70s to 90s.
--- NOTE | 2024-01-29 04:08 | PTCARENOTE ---
Labs resulted. K-3.9 Hgb-7.0. CT PA ordered PO K for repletion. Ordered type and screen for 1 u PRBC. Pending type and screen result at this time.
[2024-01-29] MEDS: KCL 20 MEQ PO (04:12)
--- NOTE | 2024-01-29 06:16 | PTCARENOTE ---
Blood transfusion initiated at 0606.
[2024-01-29 07:48] LABS: Glucose - Point of Care 126 mg/dl (70-99)
[2024-01-29] MEDS: CALCIUM CHLORIDE 10% SYRINGE 60 MG IV (08:02)
[2024-01-29] MEDS: NOVOLOG FLEXPEN-HIGH RESISTANCE 1 UNITS SC (08:41)
[2024-01-29] MEDS: PLAVIX 75 MG PO (08:52)
[2024-01-29] MEDS: CRESTOR 20 MG PO (08:52)
[2024-01-29] MEDS: VITAMIN B-12 1000 MCG PO (08:52)
[2024-01-29] MEDS: LOW STRENGTH ASPIRIN 81 MG PO (08:52)
[2024-01-29] MEDS: ZOLOFT 100 MG PO (08:52)
[2024-01-29] MEDS: VITAMIN D3 (cholecalciferol) 25 MCG PO (08:52)
[2024-01-29] MEDS: BACTROBAN 2% OINTMENT 1 APPLIC NASAL (08:52)
[2024-01-29] MEDS: SENOKOT-S 1 TABLET PO ×2 (08:52→21:13)
[2024-01-29] MEDS: PROTONIX 40 MG PO (08:52)
[2024-01-29] MEDS: FLOMAX 0.400000000000000022 MG PO (08:52)
[2024-01-29] MEDS: ProAmatine 10 MG PO ×2 (08:53→12:50)
[2024-01-29] MEDS: PACERONE 200 MG PO ×3 (08:53→22:25)
[2024-01-29] MEDS: LIDOCAINE 4% PATCH TOPICAL (08:58)
--- NOTE | 2024-01-29 09:00 | PTCARENOTE ---
Assumed care of patient from nightshift RN. Patient fully alert and oriented, OOB in chair, receiving 1u PRBC. Pt legally blind in R eye with cataracts, and blind in L eye. Patient has a flat affect. Lung sounds are diminished in the bases otherwise
clear, 2LNC, productive occasional cough, saO2 at 96%. Pt remains in Afib with controlled rate. V wires in place to box pending insulation. Weak left pedal pulses, normal right pedal pulse. Normal radial pulses. No edema is noted. Patient has active
BS throughout all four quadrants. Tolerated small breakfast, attempted for BM in bathroom, only passed flatus. There is tang catheter in place for urinary retention that is draining clear yellow, lasix 20mg given. Patient has a sternal incision
with aquacell dressing that is CDI, an ABD dressing over CT wounds that is CDI, a L groin puncture approx with surg adhesive H[employer] MANAGER, and a LLE incision approx with surg adhesive EVIE. Patient has a R IJ cordis with KVO and a R arm PIV for intermittent
infusion.
[2024-01-29] MEDS: LASIX 20 MG IV (09:24)
[2024-01-29] MEDS: NSS IV (09:56)
--- NOTE | 2024-01-29 10:25 | W.PN.CD ---
Today's Communication / Plan
-
Monitor hemoglobin consider transfusion given hemoglobin of 7
Add beta-vinny once blood pressure stable
Add Eliquis once hemoglobin stable
Impression / Plan
-
CAD: s/p CABG x4 (Holden-LAD, Y-graft off Fhzz-Bbyj-Ralgp, Y-graft off Ele-OM1, SVG- PDA) by Dr. Benitez on 01/25/24
-presented with unstable angina
-post op SALLY: EF 60%
-ASA/statin
- Hgb 7.0 consider transfusion
Post op A fib rate control
-cont amio, add BB once able to tolerate
-CHADS2-VASC = 4. Hgb trending down and 7.0 today, once stable start eliquis 5mg bid and stop plavix
- 5s conversion pause noted
VITOR on CKD3b:
-hold farxiga, and trend Cr
HTN:
-holding BP meds given hypotension
PAD:
-follows with Dr. Costa
HLD:
-Continue Crestor.
Hx of remote closed head injury:
-chronic mild-mod cognitive impairment
DM
Subjective:
Feels better still fatigue out of bed and sitting in chair
Physical Exam
Vital Signs/Labs
Vital Signs
Temp Pulse Resp BP Pulse Ox
98.3 F 101 20 110/62 98
01/29/24 07:40 01/29/24 10:00 01/29/24 08:39 01/29/24 08:53 01/29/24 10:00
01/28/24 01/29/24 01/30/24
06:59 06:59 06:59
Actual Weight 175 lb 11.335 oz 180 lb 5.41 oz 180 lb 12.465 oz
01/29/24 02:53
01/29/24 02:53
PT 18.0 Sec (11.4-14.6) H 01/25/24 13:16
INR 1.48 01/25/24 13:16
APTT 32.2 Sec (23.4-35.0) 01/25/24 13:16
Magnesium 2.5 mg/dl (1.6-2.3) H 01/29/24 02:53
Physical Exam
Constitutional: No acute distress
EENT: Anicteric
Cardiovascular: Pedal edema is absent and Rhythm/rate is irregular
Respiratory: Lungs clear to auscul. and Other (decreased resp effort )
GI: Soft
Neuro/Psych: AO x 3
Data Reviewed
-
Date of Service: January 29, 2024
EKG: Tracing Personally Visualized and interpreted
Labs: Labs Reviewed by me
[2024-01-29 12:19] LABS: Glucose - Point of Care 180 mg/dl (70-99)
[2024-01-29] MEDS: NOVOLOG FLEXPEN-HIGH RESISTANCE 2 UNITS SC ×2 (12:33→18:17)
--- NOTE | 2024-01-29 12:44 | PTCARENOTE ---
Patient vital signs stable, remains in afib, rate 90s. OOB to chair, denies pain. Sliding scale coverage provided for glucose levels. Costa catheter remains in place, good urine output. 2LNC removed, pt now on room air, o2 sat 95%. No signs of
shortness of breath or dyspnea. I.S strongly encouraged.
[2024-01-29 17:44] LABS: Glucose - Point of Care 166 mg/dl (70-99)
[2024-01-29] MEDS: ProAmatine 5 MG PO (18:44)
[2024-01-29] MEDS: ProAmatine PO (18:45)
--- NOTE | 2024-01-29 20:02 | PTCARENOTE ---
Patient resting in bed. OOB to bathroom and had BM x2. Costa output clear yellow urine, care completed with perineal wipes. Remains on room air. Cordis discontinued. Tolerating meals.
[2024-01-29] MEDS: KCL 40 MEQ PO (21:10)
--- NOTE | 2024-01-29 21:10 | PTCARENOTE ---
Pt received from anali RN. Walking rounds completed. Pt resting in bed. Pt AAOx3. BRAVO. Following commands appropriately. Pt legally blind in R eye with cataracts, and blind in L eye. Pt A-fib on the monitor. HR 90-100s. Temporary epicardial
v-wire set to VVI 30/10. No edema noted. Bilateral LE pulses weak on palpation. Bilateral radial pulses palpable. BP 126/70. Pt placed on 2 L NC. POX 95-96%. Breath sounds diminished bilaterally. Costa catheter in place - pt voiding yellow urine.
Abdomen soft/nontender. Bowel sounds present x4. CT dressing CDI. Sternal Aquacel CDI. Left groin site intact/soft/nontender. Left leg incision site intact and open to air. Right PIV x2 CDI and flushes. See worklist for full nursing assessment and
interventions. Call meier within reach.
[2024-01-29] MEDS: ELIQUIS 5 MG PO (21:12)
[2024-01-29] MEDS: TYLENOL 650 MG PO (21:33)
[2024-01-29] MEDS: CALCIUM GLUCONATE 130 MG IV (21:34)
[2024-01-29] MEDS: LANTUS 0.100000000000000006 UNITS SC (22:25)
[2024-01-29 22:26] LABS: Glucose - Point of Care 236 mg/dl (70-99)
[2024-01-29] MEDS: LOPRESSOR 2.5 MG IV (23:07)
--- NOTE | 2024-01-29 23:30 | PTCARENOTE ---
IV team called to place new IV for Amio bolus. Left forearm IV placed by IV team. Amio bolus administered per order - See JAN. Calcium gluconate administered per order - see JAN. Pt remains in a-fib. Second Amio bolus administered per order and
2.5mg IV Lopressor administered per order - see JAN. Pt VSS. Pt resting in bed at this time.
[2024-01-30] VITALS (16 sets, daily range): BP systolic 105–146; BP diastolic 64–107; PULSE 86; O2SAT 95; BMI 26.1
--- NOTE | 2024-01-30 00:51 | PTCARENOTE ---
Previous assessment unchanged. Pt remains a-fib on monitor. HR 90s. BP stable. Pt on 2 L NC. POX 96%. Costa catheter removed per order. CT dressing changed. Pt resting in bed at this time. Call meier within reach.
[2024-01-30] MEDS: LOPRESSOR 2.5 MG IV (03:47)
[2024-01-30 03:48] LABS: Hematocrit 28.1 % (39.0-52.0); Mean Corp Hgb Conc. 35.2 g/dL (33.0-37.0); Mean Corpuscular Hgb 28.6 pg (27.0-31.0); Mean Corpuscular Volume 81.2 fL (80.0-94.0); Mean Platelet Volume 9.7 fL (7.4-10.4); Platelet Count 237 10^3/uL (130-400); Red Blood Cell Count 3.46 10^6/uL (4.70-6.10); Red Cell Dist. Width 14.6 % (11.5-14.5)
[2024-01-30 03:51] LABS: Hemoglobin 9.9 g/dL (13.0-18.0)
[2024-01-30 04:03] LABS: Blood Urea Nitrogen 40 mg/dl (9-20); Carbon Dioxide 23 mmol/L (22-30); Chloride 104 mmol/L (98-107); Estimated Creatinine Clearance 41 ml/min; Glucose 133 mg/dl (70-99); Magnesium 2.2 mg/dl (1.6-2.3); Potassium 4.1 mmol/L (3.5-5.1); Sodium 137 mmol/L (135-145); eGFR 41.26
--- NOTE | 2024-01-30 04:06 | W.PN.CT ---
Today's Communication / Plan
-
-No major issues overnight. Hemodynamically and neurologically intact
-Pt back in a-fib (currently rate controlled, had been RVR during the day and last night) since @ 0240 yesterday 01/28. Amiodarone bolus x 2 and 2.5 mg IV lopessor x2 administered overnight
-Temporary pacer connected and @ backup VVI of 30 bpm. Had 5 sec conversion pause 2 days ago and required pacing briefly yesterday morning. Do not insulate yet
-D/C'd Plavix and started Eliquis yesterday 01/28
-BP has been soft postop with 2 near syncopal episodes/orthostasis thus far, has resolved after 1u PRBC yesterday 01/28. D/C'd Midodrine last night
-H/H stable @ 9.9/28.1 today
-Has VITOR on CKD postop with associated urination retention requiring straight cath x 2 and reinsertion of tang. Tang d/c'd @ midnight 01/29, f/u voiding trials, on Flomax
-Creatinine back to baseline, 1.8, was 2.2 yesterday, 1.7-1.8 preop. Received 20mg IV Lasix post blood transfusion yesterday
-Should be able to resume PO diabetics meds (Jardiance and Metformin) which have been on hold given VITOR. Currently on Lantus which can be d/c'd after resumption
-Will start PO Lopressor 12.5 mg BID today, tolerated Lopressor 2.5 x 2 overnight. Midodrine is off
-Hyponatremia has resolved, 137, was 134 yesterday. Cont. fluid restriction
-Cont. current meds (ASA, Plavix, Amiodarone, Lopressor; d/c Lantus, resume Jardiance, Metformin)
-Maintain temporary A/V wires (will cut before d/c home)
-Encourage use of IS
-Wean off of O2
-F/U 2-view cxr
-Will consider PT/OT consult, nurse reports unsteadiness
-OOB into chair/Ambulate
-Home in 1-2 days
Assessment / Plan
-
Assessment:
-Severe multivessel CAD- s/p CABG x4 (Holden-LAD, Y-graft off Fsgs-Kagw-Djycb, Y-graft off Ele-OM1, SVG- PDA) by Dr. Benitez on 01/25/24, pod #5
-Hx CAD/[place] S/P PCI with stent to ostial/prox. LAD, 2005
-Exertional angina
-First deg. HB
-HTN
-HLD
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
-Legally blind
-Right eye cataracts
-Acute on CKD3b (cr 1.7-1.8 baseline)
-Anemia preop
-PAD (B/L infrapopliteal stenosis)
-Mild cognitive impairment (cleared by Neurology)
-Medical non-compliant d/t lack of health insurance
-Anxiety/Depression
-Former tobacco use (quit 30 yrs ago)
-Acute on chronic postop blood loss anemia - no bleeding issues
-Acute postop atelectasis/pleural effusion
-Acute postop hypovolemia with subsequent hypervolemia
-Acute postop orthostasis - started on Midodrine, got 1 pRBC on and another on 01/28
-Acute postop a-fib with RVR - tx with Amio bolus and drip
-Acute postop urinary retention - s/p straight cath x 2, followed by tang reinsertion
Discussed patient care with: Cardiology, Nursing, Respiratory Therapy, Pharmacy and Care Team
Subjective
Procedure
- s/p CABG x4 (Holden-LAD, Y-graft off Fumv-Wvuq-Lczoz, Y-graft off Ele-OM1, SVG- PDA) by Dr. Benitez on 01/25/24
-
Date of Service: January 30, 2024
Pt c/o mild incisional pain, otherwise feels well
Objective Data
-
Lab Results
01/30/24 03:35
01/30/24 03:35
PT 18.0 Sec (11.4-14.6) H 01/25/24 13:16
INR 1.48 01/25/24 13:16
APTT 32.2 Sec (23.4-35.0) 01/25/24 13:16
Vital Signs
Vital Signs
Temp Pulse Resp BP Pulse Ox
97.9 F 82 16 132/91 96
01/30/24 03:26 01/30/24 03:47 01/30/24 03:26 01/30/24 03:47 01/30/24 03:26
CT Intake/Output/Weight
01/29/24 01/29/24 01/30/24
06:59 18:59 06:59
Intake Total 1080 / 1790 2257 / 2257
Output Total 1250 / 2300 2850 / 3850 1000 / 3850
Balance -170 / -510 -593 / -1593 -1000 / -1593
SaO2: 96 (2L)
Physical Exam
-
General: Awake, Oriented and AOx3
Cardiovascular: Regular rate & rhythm, No Murmurs, No Rub and No Gallop
Respiratory: Decreased Breath Sounds (at bases, otherwise clear)
Sternum: Stable
Incision: Clean, Dry, Intact and Dressing Intact
Extremities: No Edema
Data Reviewed
-
Lab Results: Results Reviewed
Medications: Active Meds Reviewed
Chest X-Ray: Report Reviewed and Image Reviewed
ECG: Report Reviewed and Image Reviewed
[2024-01-30 04:10] LABS: Prealbumin (Transthyretin) 9.8 mg/dl (17.6-36.0)
--- NOTE | 2024-01-30 04:48 | PTCARENOTE ---
Pt reassessed. A-fib on the monitor. HR 70-100s. BP 132/91. Remains on 2 L NC. POX 96%. Labs drawn and sent. IV Lopressor administered per order - see MAR. Pt assisted OOB to void in the bathroom. Pt voided w/o issue. Pt then repositioned back into
bed. Call meier within reach.
[2024-01-30 07:17] LABS: Glucose - Point of Care 141 mg/dl (70-99)
[2024-01-30] MEDS: LIDOCAINE 4% PATCH TOPICAL (07:41)
--- NOTE | 2024-01-30 08:25 | PTCARENOTE ---
Patient received from night warehouse manager resting oob in chair, AAO x 3. Afib via cm, SaO2 @ 98% on RA. Epicardial wires present, set to VVI backup rate of 30bpm, no spikes noted. All procedural sites stable. Patient updated to plan of care for the day, in
agreement. See work list for full assessment and interventions performed.
--- NOTE | 2024-01-30 08:29 | W.PN.CD ---
Today's Communication / Plan
-
Increase activity
Impression / Plan
-
CAD: s/p CABG x4 (Holden-LAD, Y-graft off Jilo-Ihjh-Lzpgp, Y-graft off Ele-OM1, SVG- PDA) by Dr. Benitez on 01/25/24
-presented with unstable angina
-post op SALLY: EF 60%
-ASA/statin
Post op A fib rate control
-cont amio, add BB once able to tolerate
-CHADS2-VASC = 4. Hgb trending down and 7.0 today,
- on eliquis and plavix
VITOR on CKD3b:
-hold farxiga, and trend Cr
HTN:
-holding BP meds given hypotension
PAD:
-follows with Dr. Costa
HLD:
-Continue Crestor.
Hx of remote closed head injury:
-chronic mild-mod cognitive impairment
DM
Subjective:
Slowly increasing activity
Physical Exam
Vital Signs/Labs
Vital Signs
Temp Pulse Resp BP Pulse Ox
98.1 F 95 17 120/64 98
01/30/24 08:05 01/30/24 08:05 01/30/24 08:05 01/30/24 07:58 01/30/24 08:22
01/29/24 01/30/24 01/31/24
06:59 06:59 06:59
Actual Weight 180 lb 5.41 oz 176 lb 12.972 oz
01/30/24 03:35
01/30/24 03:35
PT 18.0 Sec (11.4-14.6) H 01/25/24 13:16
INR 1.48 01/25/24 13:16
APTT 32.2 Sec (23.4-35.0) 01/25/24 13:16
Magnesium 2.2 mg/dl (1.6-2.3) 01/30/24 03:35
Physical Exam
Constitutional: No acute distress and Comfortable
EENT: Anicteric
Cardiovascular: Rhythm/rate is irregular and S1S2 is normal
Respiratory: Respiratory effort normal and Rhonchi Present
GI: Soft and Non tender
Neuro/Psych: AO x 3 and Motor deficits absent
Data Reviewed
-
Date of Service: January 30, 2024
[2024-01-30] MEDS: NOVOLOG FLEXPEN-HIGH RESISTANCE 1 UNITS SC (08:32)
[2024-01-30] MEDS: VITAMIN D3 (cholecalciferol) 25 MCG PO (08:33)
[2024-01-30] MEDS: PACERONE 200 MG PO ×3 (08:33→22:02)
[2024-01-30] MEDS: SENOKOT-S 1 TABLET PO ×2 (08:33→19:36)
[2024-01-30] MEDS: LIDOCAINE 4% PATCH 1 PATCH TOPICAL (08:33)
[2024-01-30] MEDS: ZOLOFT 100 MG PO (08:33)
[2024-01-30] MEDS: LOW STRENGTH ASPIRIN 81 MG PO (08:33)
[2024-01-30] MEDS: FLOMAX 0.400000000000000022 MG PO (08:33)
[2024-01-30] MEDS: PROTONIX 40 MG PO (08:34)
[2024-01-30] MEDS: TOPROL XL 12.5 MG PO (08:34)
[2024-01-30] MEDS: CRESTOR 20 MG PO (08:34)
[2024-01-30] MEDS: VITAMIN B-12 1000 MCG PO (08:34)
[2024-01-30] MEDS: ELIQUIS 5 MG PO ×2 (08:34→19:36)
[2024-01-30] MEDS: JARDIANCE 10 MG PO (09:43)
[2024-01-30] MEDS: NSS IV (10:40)
--- NOTE | 2024-01-30 10:51 | CM ---
priced annalee at [facility]- his copay is ZERO dollars.
--- NOTE | 2024-01-30 11:47 | PTCARENOTE ---
VS obtained, assessment unchanged. Patient resting comfortably oob, visitors in room.
[2024-01-30] MEDS: NOVOLOG FLEXPEN-HIGH RESISTANCE 2 UNITS SC ×2 (12:20→17:22)
[2024-01-30 12:23] LABS: Glucose - Point of Care 169 mg/dl (70-99)
[2024-01-30] MEDS: ROXICODONE 5 MG PO ×2 (15:59→22:02)
[2024-01-30] MEDS: TYLENOL 650 MG PO ×2 (16:00→20:53)
[2024-01-30 16:39] LABS: Glucose - Point of Care 166 mg/dl (70-99)
[2024-01-30] MEDS: GLUCOPHAGE 850 MG PO (17:22)
--- NOTE | 2024-01-30 20:00 | PTCARENOTE ---
Received pt from dayshift; pt resting comfortably in chair; pt denies pain, AAOX3, pt x1 assist back to bed; Afib on monitor, VSS; heart sounds audible, radial and DP pulse palpable, no edema noted, temp epicardial AV wires set to VVI rate of 30, MA
of 10; lungs clear, diminished at bases, spo2 96% on RA; hypoactive BS x4 quadrants, abdomen soft non tender; pt voiding clear yellow urine; surgical sites and dressings maintained; right 18g PIV and right 20g PIV maintained; call meier by bedside;
will continue to monitor.
[2024-01-30] MEDS: CALCIUM GLUCONATE 130 MG IV (20:45)
[2024-01-30] MEDS: ZOFRAN 4 MG IV (22:02)
[2024-01-30 22:32] LABS: Glucose - Point of Care 183 mg/dl (70-99)
[2024-01-31] VITALS (19 sets, daily range): BP systolic 91–152; BP diastolic 55–96; PULSE 87–115; O2SAT 94; BMI 26.4
--- NOTE | 2024-01-31 | PTCARENOTE ---
Pt assessment unchanged; Afib on monitor, VSS; pt resting comfortably in bed; 5mg of Lorena and zofran given at 2200 for pain; call meier within reach; will continue to monitor.
[2024-01-31] MEDS: CORDARONE 103 MG IV (00:38)
--- NOTE | 2024-01-31 04:00 | PTCARENOTE ---
Pt assessment unchanged;Afib on monitor, VSS; labs drawn and sent; EKG obtained; call meier within reach; will continue to monitor.
[2024-01-31 04:24] LABS: Hematocrit 26.4 % (39.0-52.0); Hemoglobin 8.9 g/dL (13.0-18.0); Mean Corp Hgb Conc. 33.7 g/dL (33.0-37.0); Mean Corpuscular Hgb 27.7 pg (27.0-31.0); Mean Corpuscular Volume 82.2 fL (80.0-94.0); Mean Platelet Volume 9.5 fL (7.4-10.4); Platelet Count 257 10^3/uL (130-400); Red Blood Cell Count 3.21 10^6/uL (4.70-6.10); Red Cell Dist. Width 14.2 % (11.5-14.5); White Blood Cell Count 7.8 10^3/uL (4.8-10.8)
[2024-01-31 04:53] LABS: Blood Urea Nitrogen 40 mg/dl (9-20); Calcium 9.1 mg/dl (8.4-10.2); Carbon Dioxide 25 mmol/L (22-30); Chloride 106 mmol/L (98-107); Estimated Creatinine Clearance 37 ml/min; Glucose 139 mg/dl (70-99); Magnesium 2.1 mg/dl (1.6-2.3); Potassium 4.5 mmol/L (3.5-5.1); Sodium 135 mmol/L (135-145); eGFR 36.36
--- NOTE | 2024-01-31 05:03 | W.PN.CT ---
Today's Communication / Plan
-
-No major issues overnight. Hemodynamically and neurologically intact
-Remained in rate controlled (70-90's) a-fib overnight. on Eliquis
-Cardiology to comment on possible cardioversion, currently NPO. Receiving Amiodarone, but Lopressor held d/t hypotension
-Temporary pacer connected and @ backup VVI of 30 bpm. Had 5 sec conversion pause 3 days ago and required pacing briefly 01/28 in the AM
-D/C'd Plavix and started Eliquis yesterday 01/28
-BP has been soft postop with 2 near syncopal episodes/orthostasis thus far, has improved after 1u PRBC on 01/28. Midodrine has been d/c'd
-H/H stable @ 8.9/26.4 today
-Creatinine 2.0 today, was 1.8 yesterday and 1.7-1.8 preop. Check postvoid residual to assess if fully emptying. On Floclyde conteh d/c'd midnight 01/29
-May need to hold Metformin and Jardiance which were resumed yesterday
-Hyponatremia has resolved, 135. Cont. fluid restriction
-Cont. current meds (ASA, Plavix, Amiodarone, BB if BP permits)
-Maintain temporary A/V wires (will cut before d/c home)
-Encourage use of IS
-OOB into chair/Ambulate
-PT/OT following and recommending SNF
-SNF likely tomorrow
Assessment / Plan
-
Assessment:
-Severe multivessel CAD- s/p CABG x4 (Holden-LAD, Y-graft off Cthx-Gfbx-Zljyy, Y-graft off Ele-OM1, SVG- PDA) by Dr. Benitez on 01/25/24, pod #6
-Hx CAD/[place] S/P PCI with stent to ostial/prox. LAD, 2005
-Exertional angina
-First deg. HB
-HTN
-HLD
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
-Legally blind
-Right eye cataracts
-Acute on CKD3b (cr 1.7-1.8 baseline)
-Anemia preop
-PAD (B/L infrapopliteal stenosis)
-Mild cognitive impairment (cleared by Neurology)
-Medical non-compliant d/t lack of health insurance
-Anxiety/Depression
-Former tobacco use (quit 30 yrs ago)
-Acute on chronic postop blood loss anemia - no bleeding issues
-Acute postop atelectasis/pleural effusion
-Acute postop hypovolemia with subsequent hypervolemia
-Acute postop orthostasis - started on Midodrine, got 1 pRBC on and another on 01/28
-Acute postop a-fib with RVR - tx with Amio bolus and drip
-Acute postop urinary retention - s/p straight cath x 2, followed by tang reinsertion
Discussed patient care with: Cardiology, Nursing, Respiratory Therapy, Pharmacy and Care Team
Subjective
Procedure
- s/p CABG x4 (Holden-LAD, Y-graft off Ivng-Expd-Owzjd, Y-graft off Ele-OM1, SVG- PDA) by Dr. Benitez on 01/25/24
-
Date of Service: January 31, 2024
Pt c/o mild incisional pain, otherwise feels well
Objective Data
-
Lab Results
01/31/24 03:54
PT 18.0 Sec (11.4-14.6) H 01/25/24 13:16
INR 1.48 01/25/24 13:16
APTT 32.2 Sec (23.4-35.0) 01/25/24 13:16
Vital Signs
Vital Signs
Temp Pulse Resp BP Pulse Ox
97.8 F 82 15 118/71 98
01/31/24 03:55 01/31/24 00:05 01/30/24 15:55 01/31/24 00:05 01/31/24 03:55
CT Intake/Output/Weight
01/30/24 01/30/24 01/31/24
06:59 18:59 06:59
Intake Total 500 / 500
Output Total 1000 / 3850
Balance -1000 / -1593 500 / 500
SaO2: 93 (RA)
Physical Exam
-
General: Awake, Oriented and AOx3
Cardiovascular: Regular rate & rhythm, No Murmurs, No Rub and No Gallop
Respiratory: Decreased Breath Sounds
Sternum: Stable
Incision: Clean, Dry, Intact and Dressing Intact
Extremities: No Edema
Data Reviewed
-
Lab Results: Results Reviewed
Medications: Active Meds Reviewed
Chest X-Ray: Report Reviewed and Image Reviewed
ECG: Report Reviewed and Image Reviewed
[2024-01-31] MEDS: TYLENOL 650 MG PO ×2 (06:39→15:34)
--- NOTE | 2024-01-31 07:00 | PTCARENOTE ---
Bedside walking rounds report received. Patient seen on rounds oob in chair and tolerating well. Remains afibb controlled on monitor. Patient is NPO pending cardiology input on cardioversion today. Room air. See flowrecord for remaining assessments.
[2024-01-31] MEDS: PROTONIX 40 MG PO (07:51)
[2024-01-31] MEDS: LOW STRENGTH ASPIRIN 81 MG PO (07:52)
[2024-01-31] MEDS: ZOLOFT 100 MG PO (07:52)
[2024-01-31] MEDS: VITAMIN D3 (cholecalciferol) 25 MCG PO (07:53)
[2024-01-31] MEDS: PACERONE 200 MG PO ×3 (07:53→21:30)
[2024-01-31] MEDS: ELIQUIS 5 MG PO ×2 (07:53→19:49)
[2024-01-31] MEDS: FLOMAX 0.400000000000000022 MG PO (07:53)
[2024-01-31] MEDS: CRESTOR 20 MG PO (07:53)
[2024-01-31] MEDS: SENOKOT-S 1 TABLET PO ×2 (07:53→19:49)
[2024-01-31] MEDS: VITAMIN B-12 1000 MCG PO (07:54)
[2024-01-31] MEDS: LIDOCAINE 4% PATCH 1 PATCH TOPICAL (07:54)
--- NOTE | 2024-01-31 09:00 | PTCARENOTE ---
Ambulated short distance with PT utilizing rolling walker: see flow record note.
[2024-01-31 11:21] LABS: Glucose - Point of Care 147 mg/dl (70-99)
[2024-01-31] MEDS: NOVOLOG FLEXPEN-HIGH RESISTANCE SC (11:22)
[2024-01-31] MEDS: NOVOLOG FLEXPEN-HIGH RESISTANCE 1 UNITS SC (11:23)
[2024-01-31] MEDS: NSS IV (11:24)
--- NOTE | 2024-01-31 11:30 | PTCARENOTE ---
Per ct surgery and cardiology, patient will not be getting a cardioversion today. Patient given diet. No acute changes. OOB in chair on room air in controlled atrial fibb.
--- NOTE | 2024-01-31 11:34 | W.PN.UPDATE ---
Update Note
Progress Note Update
Pt being eval for possible rehab placement s/p cabg per rec. from PT/OT. Patient with a closed head injury in the remote past. Only deficit noted was short-term memory loss, patient redirects easily. He is cooperative, pleasant and no behavior
issues noted during entire hospitalization.
--- NOTE | 2024-01-31 13:14 | W.PN.CD ---
Today's Communication / Plan
-
ambulate
continue rehab- lung exam improved today vs yest
Impression / Plan
-
CAD: s/p CABG x4 (Holden-LAD, Y-graft off Uvsd-Pbdt-Niazh, Y-graft off Ele-OM1, SVG- PDA) by Dr. Benitez on 01/25/24
-presented with unstable angina
-post op SALLY: EF 60%
-ASA/statin
Post op A fib rate control
-cont amio, add BB once able to tolerate
-CHADS2-VASC = 4.
- on eliquis and plavix
VITOR on CKD3b:
-hold farxiga, and trend Cr which is 2.0 today (near baseline)
HTN:
-Normotensive now for past 24 hrs
-on metop XL 12.5qd
PAD:
-follows with Dr. Costa
HLD:
-Continue Crestor.
Hx of remote closed head injury:
-chronic mild-mod cognitive impairment
DM
Subjective:
Slowly increasing activity
Physical Exam
Vital Signs/Labs
Vital Signs
Temp Pulse Resp BP Pulse Ox
98 F 89 18 121/80 98
01/31/24 11:30 01/31/24 11:30 01/31/24 11:30 01/31/24 11:30 01/31/24 11:30
01/30/24 01/31/24 02/01/24
06:59 06:59 06:59
Actual Weight 176 lb 12.972 oz 178 lb 9.191 oz
01/31/24 03:54
01/31/24 03:54
PT 18.0 Sec (11.4-14.6) H 01/25/24 13:16
INR 1.48 01/25/24 13:16
APTT 32.2 Sec (23.4-35.0) 01/25/24 13:16
Magnesium 2.1 mg/dl (1.6-2.3) 01/31/24 03:54
Physical Exam
Constitutional: No acute distress and Comfortable
Cardiovascular: Rhythm/rate is irregular and S1S2 is normal
Respiratory: Lungs clear to auscul.
GI: Distention absent and Non tender
Neuro/Psych: Motor deficits absent
Data Reviewed
-
Date of Service: January 31, 2024
[2024-01-31] MEDS: ROXICODONE 5 MG PO (15:35)
[2024-01-31] MEDS: LOPRESSOR 12.5 MG PO (15:41)
--- NOTE | 2024-01-31 16:38 | PTCARENOTE ---
Ambulated with assist of rolling walker 150ft on room air : see post activity vitals.
[2024-01-31] MEDS: NOVOLOG FLEXPEN-HIGH RESISTANCE 2 UNITS SC (16:52)
[2024-01-31 16:56] LABS: Glucose - Point of Care 180 mg/dl (70-99)
[2024-01-31] MEDS: TOPROL XL 12.5 MG PO (19:49)
--- NOTE | 2024-01-31 20:50 | PTCARENOTE ---
Assumed care of patient at 1900. Patient found OOB in chair at time of assessment. Patient is AOx4, legally blind in R eye, blind in L eye, follows commands appropriately, moves all extremities. Flat affect is noted. Lung sounds are diminished in
the bases, patient is on RA saO2 at 96%, occasional nonproductive cough. Heart sounds are irregular, patient is in A fib on the monitor with a controlled rate, normal palpable pulses, and no edema is noted. Active BS throughout patient reports BM
during the day. Patient is voiding clear yellow urine using the bathroom. Patient has a R AC and R FA PIV. There is a sternal incision with aquacell dressing that is CDI, an ABD dressing over CT wounds that is CDI. L groin puncture approx with surg
adhesive EVIE and LLE incision approx with surg adhesive EVIE. VSS. Assisted patient back to bed. No complaints at this time.
[2024-01-31 23:07] LABS: Glucose - Point of Care 172 mg/dl (70-99)
[2024-02-01] VITALS (8 sets, daily range): BP systolic 107–137; BP diastolic 63–89; BMI 26.4
[2024-02-01] MEDS: MUCINEX 600 MG PO ×2 (00:57→08:35)
[2024-02-01] MEDS: TYLENOL 650 MG PO ×3 (02:53→15:30)
[2024-02-01 03:22] LABS: Hematocrit 27.3 % (39.0-52.0); Hemoglobin 9.4 g/dL (13.0-18.0); Mean Corp Hgb Conc. 34.4 g/dL (33.0-37.0); Mean Corpuscular Hgb 28.2 pg (27.0-31.0); Mean Platelet Volume 9.2 fL (7.4-10.4); Platelet Count 278 10^3/uL (130-400); Red Blood Cell Count 3.33 10^6/uL (4.70-6.10); Red Cell Dist. Width 14.2 % (11.5-14.5); White Blood Cell Count 8.6 10^3/uL (4.8-10.8)
[2024-02-01 04:20] LABS: Blood Urea Nitrogen 39 mg/dl (9-20); Calcium 8.7 mg/dl (8.4-10.2); Carbon Dioxide 25 mmol/L (22-30); Chloride 102 mmol/L (98-107); Estimated Creatinine Clearance 37 ml/min; Glucose 131 mg/dl (70-99); Potassium 4.8 mmol/L (3.5-5.1); Sodium 134 mmol/L (135-145); eGFR 36.36
--- NOTE | 2024-02-01 04:32 | W.PN.CT ---
Today's Communication / Plan
-
-No major issues overnight. Hemodynamically and neurologically intact
-Remained in rate controlled (70-90's) a-fib overnight. on Eliquis. Tolerated Toprol XL 12.5 mg BID yesterday
-Temporary pacer connected and @ backup VVI of 30 bpm. Had 5 sec conversion pause 4 days ago and required pacing briefly on 01/28 in the AM
-D/C'd Plavix and started Eliquis 01/28
-BP has been soft postop with 2 near syncopal episodes/orthostasis thus far, has improved after 1u PRBC on 01/28. Midodrine has been d/c'd
-H/H stable @ 9.4/27.3 today
-Creatinine 2.0 today, was 1.8 yesterday and 1.7-1.8 preop. Post void residual has been minimal. On Flomax, tang d/c'd midnight 01/29
-Consider resumption of Metformin and Jardiance as creatinine likely has reached peak postop. Gentle diuresis if BP permits, wt's up
-Hyponatremia 134, was 135 yesterday. Cont. fluid restriction. Check wt today, was up ~9 lbs yesterday from preop weight. Lasix if BP permits
-Cont. current meds (ASA, Plavix, Amiodarone, BB and Lasix if BP permits)
-Maintain temporary A/V wires (will cut before d/c home)
-Encourage use of IS
-OOB into chair/Ambulate
-PT/OT following and recommending SNF placement
-SNF likely today
Assessment / Plan
-
Assessment:
-Severe multivessel CAD- s/p CABG x4 (Holden-LAD, Y-graft off Ywby-Tajs-Ssunf, Y-graft off Ele-OM1, SVG- PDA) by Dr. Benitez on 01/25/24, pod #7
-Hx CAD/[place] S/P PCI with stent to ostial/prox. LAD, 2005
-Exertional angina
-First deg. HB
-HTN
-HLD
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
-Legally blind
-Right eye cataracts
-Acute on CKD3b (cr 1.7-1.8 baseline)
-Anemia preop
-PAD (B/L infrapopliteal stenosis)
-Mild cognitive impairment (cleared by Neurology)
-Medical non-compliant d/t lack of health insurance
-Anxiety/Depression
-Former tobacco use (quit 30 yrs ago)
-Acute on chronic postop blood loss anemia - no bleeding issues
-Acute postop atelectasis/pleural effusion
-Acute postop hypovolemia with subsequent hypervolemia
-Acute postop orthostasis - started on Midodrine, got 1 pRBC on and another on 01/28
-Acute postop a-fib with RVR - tx with Amio bolus and drip
-Acute postop urinary retention - s/p straight cath x 2, followed by tang reinsertion
Discussed patient care with: Cardiology, Nursing, Respiratory Therapy, Pharmacy and Care Team
Subjective
Procedure
- s/p CABG x4 (Holden-LAD, Y-graft off Rvve-Ddin-Xbiul, Y-graft off Ele-OM1, SVG- PDA) by Dr. Benitez on 01/25/24
-
Date of Service: February 01, 2024
Pt c/o non-productive cough, otherwise feels well. Moving around better
Objective Data
-
Lab Results
02/01/24 03:10
02/01/24 03:10
PT 18.0 Sec (11.4-14.6) H 01/25/24 13:16
INR 1.48 01/25/24 13:16
APTT 32.2 Sec (23.4-35.0) 01/25/24 13:16
Vital Signs
Vital Signs
Temp Pulse Resp BP Pulse Ox
98.2 F 83 20 137/72 91
02/01/24 03:00 02/01/24 04:00 02/01/24 03:00 02/01/24 03:16 02/01/24 03:16
CT Intake/Output/Weight
01/31/24 01/31/24 02/01/24
06:59 18:59 06:59
Intake Total 725 / 725
Balance 725 / 725
SaO2: 92 (RA)
Physical Exam
-
General: Awake, Oriented and AOx3
Cardiovascular: Regular rate & rhythm, No Murmurs, No Rub and No Gallop
Respiratory: Decreased Breath Sounds (at bases, otherwise clear)
Sternum: Stable
Incision: Clean, Dry, Intact and Dressing Intact
Extremities: No Edema
Data Reviewed
-
Lab Results: Results Reviewed
Medications: Active Meds Reviewed
Chest X-Ray: Report Reviewed and Image Reviewed
ECG: Report Reviewed and Image Reviewed
--- NOTE | 2024-02-01 07:00 | PTCARENOTE ---
Bedside walking rounds report received. Patient seen on rounds oob in [place] on room air and tolerating well. A fibb: controlled on monitor. Vitals stable. Plan for dc to [facility] at some point today. See flowrecord for remaining
assessments
--- NOTE | 2024-02-01 07:35 | W.PN.CD ---
Today's Communication / Plan
-
I recommend furosemide 40 mg IV x1 and monitor response.
Continue all current therapy.
Encourage ambulation and incentive spirometry.
Discharge planning.
Impression / Plan
-
Impression/Plan: 63 y/o male with prior closed head injury resulting in mild cognitive impairment, NIDDM, HTN, HLD, CKD3 and PAD admitted with unstable angina while at rehab for conservative PAD management now s/p CABG.
#CAD
-Acute on chronic (presenting with unstable angina while at rehab for PAD).
-S/P PCI in 2005.
-s/p CABG x4 (GUAJARDO to LAD, Free ELIU Y-graft off GUAJARDO to Ramus, Free ELIU Y-graft off ELIU to OM1, SVG to PDA) by Dr. Benitez on 01/25/24 with rigid sternal fixation.
-Routine post operative management per CT surgery.
-S/P transfusion fo 2U PRBC's (01/26/2024, 01/29/2024).
-Continue metoprolol, amiodarone, rosuvastatin.
-No role for clopidogrel given apixaban.
-Weight remains up. He may be ready for some diuresis. Favor furosemide 40 mg IV x1 and monitor response.
#Cough
-New.
-DDx is broad. Could be from volume, postoperative state, cough variant reactive airway disease, reaction to amiodarone (less likely).
-Repeat CXR. As noted above, I favor diuresis. Incentive spirometry. PFT's may not be accurate in the near post-operative setting.
#Post-op Atrial fibrillation
-Acute. This may be exacerbated by volume overload (weight remains up 3 kg).
-Back and forth between NSR and rate controlled atrial fibrillation.
-Rate/rhythm control with amdioarone, metoprolol.
-CHADS2-Vasc = 4 (HTN, Age x1, DM, Vascular Disease).
-S/P LAAL with #40 Atriclip.
-Therapeutic anticoagulation with apixaban 5 mg BID.
#VITOR on CKD3b:
-Baseline creatinine 1.7.
-Na down to 134.
-Creatinine steady at 2.0.
-Minimize nephrotoxins. Favor modest diuresis for renal dysfunction/hyponatremia and weight increase. I recommend furosemide 40 mg IV x1 and monitor response.
-Start dapagliflozin 10 mg daily with creatinine is back to baseline. This may be done as an outpatient.
#HTN
-Chronic, stable.
-Continue metoprolol.
#PAD
-Chronic, stable.
-Bilateral infrapopliteal stenoses.
-Follows with Dr. Costa. Plan for conservative management.
#HLD
-Chronic, stable.
-Prior lipid panel (2019) shows total cholesterol = 204, LDL = 119, HDL = 37, Triglycerides = 241.
-Continue rosuvastatin 20 mg daily.
#Hx of remote closed head injury:
-Chronic mild-mod cognitive impairment.
#NIDDM
-Chronic.
-Complicated by retinopathy (legally blind).
-HbA1c = 6.1%.
-Continue metformin.
-Resume dapagliflozin when renal function will tolerate.
Subjective/Interval History:
Weight 80.9 kg, up from baseline of 77.1 kg.
Remains in rate controlled atrial fibrillation.
Complaining of some 'dry cough'.
DATA:
Cardiac Catheterization, 01/17/2024:
CORONARY ANGIOGRAPHY
Dominance: Right
Left Main: Normal
Ramus: There is a large ramus intermedius which has 70% proximal stenosis.
LAD: The LAD has an ostial/proximal stent which has diffuse severe (>90%) in-stent restenosis.� There is 60-70% distal LAD stenosis.� There is competitive flow from a distal RV marginal collateral to the apical LAD
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
RCA: The RCA is a large dominant vessel with 60-70% mid stenosis.� There is 60% distal RCA stenosis proximal to the takeoff of the PDA.� The RV acute marginal collateralizes the apical LAD.� The PDA and posterolateral branches have mild luminal
disease.
TTE, 01/18/2024:
CONCLUSIONS
�Normal left ventricular size with mild concentric remodeling and normal left
�ventricular systolic function. Normal regional wall motion.� LV ejection
�fraction is 55-60% by volumetric assessment. Stage I diastolic dysfunction
�suggestive of abnormal relaxation.
�Normal right ventricular size and function.
�Normal atria.
�There is calcification with restricted motion of the non-coronary/right
�coronary cusp with aortic sclerosis without stenosis.
�No other significant valve abnormalities.
�No evidence of pulmonary hypertension.
�
�No significant change since the prior study of 10/06/2022.
Intraprocedural SALLY, 01/25/2024:
CONCLUSIONS
�Overall LVEF is approximately 60% with no RWMA.
�Mild concentric left ventricular hypertrophy.
�Stage I Diastolic dysfunction.
�Mildly dilated left atrium.
�Mild sessile atheroma seen in the descending aorta.
POST OPERATIVE FINDINGS
�The patient underwent a CABG and ligation of LA appendage.� Postop rhythm
�remains sinus.� RV and LV function are normal.� Overall LVEF is still
�approximately 60% with no new RWMA.� TV and PV function are normal.� Trace AI.�
�MV function is normal.� The LA appendage has been clipped.� No residual lumen
�seen on 2D echo and color Doppler.� Aortic scan is unchanged.
TTE, 01/27/2024:
CONCLUSIONS
�Normal left ventricular size and systolic function. No regional wall motion
�abnormalities are seen. LV ejection fraction is 60-65% by visual assessment.
�Normal right ventricular size and function.
�No significant valvular disease.
�No pericardial effusion.
�Compared to prior from January 18, 2024, no significant change.
Physical Exam
Vital Signs/Labs
Vital Signs
Temp Pulse Resp BP Pulse Ox
36.8 C 83 20 137/72 92
02/01/24 03:00 02/01/24 04:00 02/01/24 03:00 02/01/24 03:16 02/01/24 04:37
01/30/24 01/31/24 02/01/24
11:59 11:59 11:59
Actual Weight 80.2 kg 81 kg 80.9 kg
02/01/24 03:10
02/01/24 03:10
PT 18.0 Sec (11.4-14.6) H 01/25/24 13:16
INR 1.48 01/25/24 13:16
APTT 32.2 Sec (23.4-35.0) 01/25/24 13:16
Magnesium 2.0 mg/dl (1.6-2.3) 02/01/24 03:10
Physical Exam
Constitutional: No acute distress and Comfortable
EENT: Anicteric and Moist mucous membranes
Cardiovascular: JVD pressure is normal, Rhythm/rate is irregular, Pedal edema present, S1S2 is normal and Murmur/rub/gallop absent
Respiratory: Respiratory effort normal, Lungs clear to auscul., Wheeze Absent, Crackles Absent and Rhonchi Absent
GI: Soft, Distention absent, Flat, Non tender and Normal bowel sounds
Neuro/Psych: AO x 3
Data Reviewed
-
Date of Service: February 01, 2024
Medical Decision Making: Reviewed Test Results, Independent Historian Assessment, Test Interpretation and Review of Case with other Provider
EKG: Tracing Personally Visualized and interpreted and Report Reviewed by me
Echo: Tracing Personally Visualized and interpreted and Report Reviewed by me
X-Ray/CT/US/MRI/NUC/PET: Image Personally Visualized and interpreted and Report Reviewed by me
Medical Tests (PFT, Pathology etc): Image Personally Visualized and interpreted and Report Reviewed by me
Labs: Labs Reviewed by me
--- NOTE | 2024-02-01 07:45 | PTCARENOTE ---
Patient reassessed. VSS. Patient assisted to bed for large void. Assisted OOB to chair. Adminstered tylenolx1 for pain. Remains in controlled afib on the monitor.
[2024-02-01] MEDS: LASIX 40 MG IV (08:33)
[2024-02-01] MEDS: ELIQUIS 5 MG PO (08:34)
[2024-02-01] MEDS: LOW STRENGTH ASPIRIN 81 MG PO (08:34)
[2024-02-01] MEDS: PROTONIX 40 MG PO (08:34)
[2024-02-01] MEDS: LIDOCAINE 4% PATCH 1 PATCH TOPICAL (08:34)
[2024-02-01] MEDS: PACERONE 200 MG PO ×2 (08:35→15:29)
[2024-02-01] MEDS: VITAMIN B-12 1000 MCG PO (08:35)
[2024-02-01] MEDS: CRESTOR 20 MG PO (08:35)
[2024-02-01] MEDS: FLOMAX 0.400000000000000022 MG PO (08:35)
[2024-02-01] MEDS: ZOLOFT 100 MG PO (08:35)
[2024-02-01] MEDS: TOPROL XL 12.5 MG PO (08:35)
[2024-02-01] MEDS: SENOKOT-S 1 TABLET PO (08:35)
[2024-02-01] MEDS: VITAMIN D3 (cholecalciferol) 25 MCG PO (08:36)
[2024-02-01] MEDS: NOVOLOG FLEXPEN-HIGH RESISTANCE 1 UNITS SC (08:36)
[2024-02-01 08:43] LABS: Glucose - Point of Care 149 mg/dl (70-99)
--- NOTE | 2024-02-01 10:50 | CM ---
Addendum entered by EVANGELINA Blair 02/01/24 15:17:
Plan to transfer to [facility] today via wheelchair van.
RN report: [phone]
Met w/ patient at bedside. Pt. feels well and is prepared for DC.
There are no additional identified DC needs.
Original Note:
CM following for DC planning needs.
Anticipated DC plan is for SNF @ [facility], today.
--- NOTE | 2024-02-01 11:59 | W.DCSUMMARY ---
Addendum entered and electronically signed by ROBERT Aleman 02/01/24 13:06:
Metformin was held on Discharge as creat remained 2.0
Original Note:
Discharge Summary
Discharge Data
Date of Admission: 01/17/24
Date of Discharge: 02/01/24
-
Pending Results: No
Hospital Course
Primary care physician: Danial Novak
Outpatient theology professor: Maria Eugenia Aviles
Inpatient consultants: [facility] Cardiology
Procedures:
1. CABG x 4
Primary Diagnosis:
1. Coronary artery disease with prior stents
Secondary Diagnoses:
1. Type 2 diabetes
2. Diabetic retinopathy (legally blind) and neuropathy
3. Hypertension
4. GERD
5. Lower extremity peripheral arterial disease (B/L infrapopliteal stenosis)
6. Hypertension
7. Asthma
8. Acute on CKD3b (cr 1.7-1.8 baseline)
9. Mild cognitive impairment (cleared by Neurology)
10. Anxiety/Depression
11.postoperative atrial fibrillation
12. post-op urinary retention
HPI: Mr. Archer is a 63-year-old male admitted 01/16/2024 from the emergency room for chest pain evaluation.
Hospital course: Patient ruled out for FL. Multivessel coronary disease was discovered by catheterization. Preop neurological evaluation was conducted for patient complaint of short-term memory loss that is chronic for him. Neurology cleared
patient for surgery. Creatinine did bump to 2.1 after cardiac cath dye and returned to baseline of 1.7 preoperatively. Patient underwent CABG x 4 with GUAJARDO to LAD and a ELIU Y graft from GUAJARDO to ramus, and a ELIU Y graft off GUAJARDO to the OM1,
saphenous vein graft to PDA with Dr. Ady Diane. Patient returned to CVICU on Levophed and Cardene. Patient was extubated at 1845. Patient received aspirin postoperatively. Postoperative day #1 midodrine was started for borderline blood pressure
in an effort to wean off Levophed. Patient did receive 1 unit of packed cells postoperatively for hemoglobin of 8. Patient developed postoperative paroxysmal atrial fibrillation and required amiodarone bolus and drip on postoperative day #3
patient converted to normal sinus rhythm with a 5-second conversion pause. IV amiodarone was completed and patient was continued on oral amiodarone. Patient had postoperative urinary retention and had Costa reinserted and was started on Flomax.
On postoperative day #4 patient went back into rate controlled atrial fibrillation overnight and repeat amiodarone bolus was given. Patient was transfused 1 unit of packed cells for hemoglobin of 7.0. Postoperative day #5 PT OT were consulted
patient was ambulating a bit better but still deconditioned and was recommended to go to SNF upon discharge. On postoperative day #7 GFR remained at 36 and Jardiance was reinstituted. Metformin was reinstituted and patient should have follow-up
BMP in 1 week.
Home medication changes:
Discharge Plan
-
Patient Disposition: [facility]/SNF
Discharge Diagnosis/Procedures: CAD/CABG
Condition: Fair
Diet: Low Fat, Low Sodium and Diabetic, Carb Controlled
Activity: As tolerated
Driving Restrictions: Not until seen by your Dr
Bathing Restrictions: OK to Shower
Blood Work: BMP in 1 week
Other Services: Cardiac Rehab
Specialty Instructions: Weigh Daily- Call MD for wt gain/loss 3 lbs overnight/5 lbs in 1 week
Activity Restrictions/Additional Instructions:
ACTIVITY:
-No strenuous activity: no heavy lifting, pushing, pulling anything over 15 pounds for one month
-continue to use stairs as tolerated
DRIVING RESTRICTIONS:
-No driving for one month or until approved by your surgeon
WOUND CARE:
-Shower daily. Use soap & water.
-No lotions, creams or powders on incision area.
DIET:
-continue a low fat/low cholesterol diet.
-IF you are diabetic, continue carb controlled diet.
CARDIAC REHAB:
-Please make appointment to start in 5-6 weeks with your local hospital program. (See Cardiac Rehabilitation Discharge Booklet).
SPECIALTY INSTRUCTIONS:
-Weigh yourself daily. Call your physician for any weight gain/loss of 3 lbs overnight or 5 lbs in one week.
-REPORT any clicking noise or uneven appearance of your sternum to your surgeon immediately.
-If you smoke, you are instructed to quit. The [place] smoking hotline phone number is [phone]
Referrals:
CT Transitional Care Nurse [Outside] (The Cardiothoracic Transitional Care Nurse will call you to set up a visit in 1-2 days.)
[facility] [Outside] - 03/01/24 9:30 am
(Cardiac Rehab Orientation appointment is on 03/01/24 (Th) at 930
The Cardiac Rehab gym is located on the first floor of the [facility].)
[facility] [Outside]
Danial Novak MD [Family Provider] -
Cinthya Franco CRNP [Specified Professional Personl] - 03/08/24 10:40 am
Beni Benitez MD [Active] - 02/20/24 9:45 am
Additional Discharge Medication Instructions: -Stop hydralazine
-Stop nitroglycerin
-stop amlodipine
-stop hydralazine
Rosuvastatin increased to 20 mg s/p CABG
Prescriptions:
New
oxycodone 5 mg Tablet
5 mg PO Q4HPRN PRN (Reason: SEVERE pain) Qty: 20 0RF
rosuvastatin 20 mg Tablet
20 mg PO DAILY Qty: 30 1RF
pantoprazole 40 mg Tablet,Delayed Release (Dr/Ec)
40 mg PO DAILY Qty: 30 1RF
tamsulosin 0.4 mg Capsule
0.4 mg PO DAILY Qty: 30 1RF
Eliquis 5 mg Tablet
5 mg PO BID Qty: 60 1RF
metoprolol succinate 25 mg Tablet Extended Release 24 Hr
12.5 mg PO BID Qty: 60 1RF
Continued
metformin 850 MG tablet
850 mg PO TID
aspirin 81 MG tablet,chewable
81 mg PO DAILY
sertraline 100 mg tablet
100 mg PO DAILY
cyanocobalamin (vitamin B-12) [Vitamin B-12] 1,000 mcg Tablet
1,000 mcg PO DAILY
lorazepam [Ativan] 0.5 mg Tablet
0.5 mg PO DAILY PRN (Reason: anxiety )
cholecalciferol (vitamin D3) [Vitamin D3] 25 mcg (1,000 unit) Capsule
25 mcg PO DAILY
Artificial Tears(nmmd80-tftno) 0.1-0.3 % Drops
1 drp BOTH EYES QID PRN (Reason: dry eyes )
Eylea 2 mg/0.05 mL Syringe
2 mg INTRAVITREAL Q8W
Jardiance 10 mg tablet
10 mg PO DAILY
Veltassa 8.4 gram powder in packet
8.4 g PO HS
albuterol sulfate [ProAir HFA] 90 mcg/actuation Hfa Aerosol Inhaler
1 puff INHALATION Q4H PRN (Reason: shortness of breath )
Discontinued
amlodipine 10 mg tablet
10 mg PO DAILY
hydralazine 50 mg tablet
50 mg PO TID
rosuvastatin 10 mg tablet
10 mg PO DAILY
nitroglycerin 0.4 mg Tablet, Sublingual
0.4 mg SUBLINGUAL Q5-15M PRN (Reason: chest pain )
Care Plan Goals
Care Plan Goals:
Problem: Readiness for enhanced knowledge related to diagnosis and treatment plan
Goal: Understand your diagnosis and treatment plan needs, including medications if applicable.
Instructions: Know your diagnosis, underlying causes and treatment plan options, including medications if applicable. Consult with your health care team to learn about your diagnosis and treatment plan, including medications if applicable.
[2024-02-01] MEDS: NSS IV (14:25)
[2024-02-01] MEDS: NOVOLOG FLEXPEN-HIGH RESISTANCE SC (14:25)
--- NOTE | 2024-02-01 15:36 | PTCARENOTE ---
Vital signs stable. Afib. HR 80s-90s. BP 107/63. RA. Oxygen saturation 97%. Patient c/o 5/10 sternal incision pain, administered PRN Tylenol as ordered. Patient put on his underwear and hospital pants. RN and UC packed up and consolidated patient's
belongings into a couple bags.
--- NOTE | 2024-02-01 17:00 | PTCARENOTE ---
Patient assisted back into bed to cut epicardial wires per order and per protocol with 2 RNs. Aquacell dressing taken off with adhesive remover spray. Patient's belongings consolidated into 1 bag and his shoes in another, because his feet would not
fit. Placed a shirt on the patient. Sternal incision is approximated with surgical adhesive and open to air. CTx3 sites are open to air and becoming approximated as they are healing. Patient placed his cellphone in his jacket pocket. Picked up by
[facility] - patient strapped into wheelchair comfortably. The line haul driver was given the transfer form.
== END 2024-02-01 17:00 | DRG 234 ==
LOC: CVICU 15:58
PROVIDERS: Anesthesiology; Clinical Nurse Specialist Acute Care; Internal Medicine; Internal Medicine Cardiovascular Disease; Nurse Practitioner Adult Health; Physician Assistant Medical; Physician Assistant Surgical; Registered Nurse; ADMITTING PHYSICIAN Hospitalist; ATTENDING PHYSICIAN Thoracic Surgery (Cardiothoracic Vascular Surgery); CONSULT PHYSICIAN Internal Medicine Cardiovascular Disease; CONSULT PHYSICIAN Internal Medicine Critical Care Medicine; CONSULT PHYSICIAN Psychiatry & Neurology Neurology; EMERGENCY PHYSICIAN Emergency Medicine; FAMILY PHYSICIAN Family Medicine; OTHER PHYSICIAN Nurse Practitioner
PROC: 4A023N7 Measurement of Cardiac Sampling and Pressure, Left Heart, Percutaneous Approach (ICD-10-PCS; 2024-01-17)
PROC: B2111ZZ Fluoroscopy of Multiple Coronary Arteries using Low Osmolar Contrast (ICD-10-PCS; 2024-01-17)
PROC: B24BZZ4 Ultrasonography of Heart with Aorta, Transesophageal (ICD-10-PCS; 2024-01-25)
PROC: 02110Z8 Bypass Coronary Artery, Two Arteries from Right Internal Mammary, Open Approach (ICD-10-PCS; 2024-01-26)
PROC: 02100Z9 Bypass Coronary Artery, One Artery from Left Internal Mammary, Open Approach (ICD-10-PCS; 2024-01-26)
PROC: 06BQ4ZZ Excision of Left Saphenous Vein, Percutaneous Endoscopic Approach (ICD-10-PCS; 2024-01-26)
PROC: 30233N1 Transfusion of Nonautologous Red Blood Cells into Peripheral Vein, Percutaneous Approach (ICD-10-PCS; 2024-01-26)
PROC: 021009W Bypass Coronary Artery, One Artery from Aorta with Autologous Venous Tissue, Open Approach (ICD-10-PCS; 2024-01-26)
PROC: 02L70CK Occlusion of Left Atrial Appendage with Extraluminal Device, Open Approach (ICD-10-PCS; 2024-01-26)
PROC: 5A1221Z Performance of Cardiac Output, Continuous (ICD-10-PCS; 2024-01-26)
DX: I25.118 Atherosclerotic heart disease of native coronary artery with other forms of angina pectoris (principal); N17.9 Acute kidney failure, unspecified; D62 Acute posthemorrhagic anemia; J98.11 Atelectasis; E87.1 Hypo-osmolality and hyponatremia; J90 Pleural effusion, not elsewhere classified; E11.22 Type 2 diabetes mellitus with diabetic chronic kidney disease; E11.51 Type 2 diabetes mellitus with diabetic peripheral angiopathy without gangrene; E78.00 Pure hypercholesterolemia, unspecified; I12.9 Hypertensive chronic kidney disease with stage 1 through stage 4 chronic kidney disease, or unspecified chronic kidney disease; N18.32 Chronic kidney disease, stage 3b; F41.9 Anxiety disorder, unspecified; G31.84 Mild cognitive impairment of uncertain or unknown etiology; E11.40 Type 2 diabetes mellitus with diabetic neuropathy, unspecified; E11.319 Type 2 diabetes mellitus with unspecified diabetic retinopathy without macular edema; D63.1 Anemia in chronic kidney disease; H54.8 Legal blindness, as defined in USA; J45.909 Unspecified asthma, uncomplicated; K21.9 Gastro-esophageal reflux disease without esophagitis; I95.1 Orthostatic hypotension; I48.0 Paroxysmal atrial fibrillation; F32.A Depression, unspecified; R33.9 Retention of urine, unspecified; G43.909 Migraine, unspecified, not intractable, without status migrainosus; R05.9 Cough, unspecified; E86.1 Hypovolemia; E87.70 Fluid overload, unspecified; I25.2 Old myocardial infarction; S06.9XAS Unspecified intracranial injury with loss of consciousness status unknown, sequela; X58.XXXS Exposure to other specified factors, sequela; Z79.82 Long term (current) use of aspirin; Z79.84 Long term (current) use of oral hypoglycemic drugs; Z79.899 Other long term (current) drug therapy; Z82.49 Family history of ischemic heart disease and other diseases of the circulatory system; Z87.891 Personal history of nicotine dependence; Z95.5 Presence of coronary angioplasty implant and graft; Z91.190 Patient's noncompliance with other medical treatment and regimen due to financial hardship
CPT/HCPCS: 71045; 71046; 71250; 80048; 80053; 81003; 82248; 82330; 82565; 82607; 82728; 82746; 82805; 82947; 82962; 83036; 83735; 84132; 84134; 84302; 84443; 84484; 84520; 85014; 85018; 85025; 85027; 85049; 85610; 85652; 85730; 86850; 86900; 86901; 86920; 93005; 93306; 93312; 93320; 93325; 93454; 93880; 93970; 94002; 97116; 97162; 97167; 97530; 97535; 99285; C1713; C1894; P9016; P9045; Q9967

== ENCOUNTER → 2024-02-03 11:24 | Outpatient (REF) | payer OTHER, MEDICARE, SELFPAY ==
[2024-02-03 12:02] LABS: Hematocrit 24.5 % (39.0-52.0); Hemoglobin 8.1 g/dL (13.0-18.0); Mean Corp Hgb Conc. 33.1 g/dL (33.0-37.0); Mean Corpuscular Hgb 27.4 pg (27.0-31.0); Mean Corpuscular Volume 82.8 fL (80.0-94.0); Mean Platelet Volume 9.5 fL (7.4-10.4); Platelet Count 317 10^3/uL (130-400); Red Blood Cell Count 2.96 10^6/uL (4.70-6.10); Red Cell Dist. Width 13.5 % (11.5-14.5)
[2024-02-03 12:15] LABS: Blood Urea Nitrogen 38 mg/dl (9-20); Calcium 8.1 mg/dl (8.4-10.2); Carbon Dioxide 26 mmol/L (22-30); Chloride 105 mmol/L (98-107); Glucose 125 mg/dl (70-99); Sodium 136 mmol/L (135-145); eGFR 34.29
== END ==
LOC: OLABP 11:24
PROVIDERS: ATTENDING PHYSICIAN Family Medicine
DX: N17.9 Acute kidney failure, unspecified (principal); D62 Acute posthemorrhagic anemia; I25.10 Atherosclerotic heart disease of native coronary artery without angina pectoris; I97.89 Other postprocedural complications and disorders of the circulatory system, not elsewhere classified; N18.32 Chronic kidney disease, stage 3b; I13.10 Hypertensive heart and chronic kidney disease without heart failure, with stage 1 through stage 4 chronic kidney disease, or unspecified chronic kidney disease; E11.9 Type 2 diabetes mellitus without complications
CPT/HCPCS: 36415; 80048; 85027

== ENCOUNTER → 2024-02-17 12:40 | Outpatient (REF) | payer MEDICARE, OTHER, SELFPAY ==
[2024-02-17 16:47] LABS: Blood Urea Nitrogen 25 mg/dl (9-20); Calcium 9.7 mg/dl (8.4-10.2); Carbon Dioxide 24 mmol/L (22-30); Chloride 102 mmol/L (98-107); Glucose 95 mg/dl (70-99); Potassium 5.6 mmol/L (3.5-5.1); Sodium 137 mmol/L (135-145); eGFR 38.66
== END ==
LOC: CLAB 12:40
PROVIDERS: ATTENDING PHYSICIAN Thoracic Surgery (Cardiothoracic Vascular Surgery); FAMILY PHYSICIAN Family Medicine
DX: I12.9 Hypertensive chronic kidney disease with stage 1 through stage 4 chronic kidney disease, or unspecified chronic kidney disease (principal); D63.1 Anemia in chronic kidney disease; N18.32 Chronic kidney disease, stage 3b
CPT/HCPCS: 80048

== ENCOUNTER 2024-03-26 11:51 | Outpatient (RCR) | payer MEDICARE, OTHER, SELFPAY ==
[2024-03-01 11:26] LABS: Glucose - Point of Care 112 mg/dl (70-99)
[2024-03-01 12:01] LABS: Glucose - Point of Care 100 mg/dl (70-99)
[2024-03-05 11:09] LABS: Glucose - Point of Care 92 mg/dl (70-99)
[2024-03-05 11:37] LABS: Glucose - Point of Care 106 mg/dl (70-99)
[2024-03-07 11:09] LABS: Glucose - Point of Care 167 mg/dl (70-99)
[2024-03-07 11:35] LABS: Glucose - Point of Care 131 mg/dl (70-99)
[2024-03-09 10:55] LABS: Glucose - Point of Care 145 mg/dl (70-99)
[2024-03-09 11:34] LABS: Glucose - Point of Care 112 mg/dl (70-99)
[2024-03-12 11:09] LABS: Glucose - Point of Care 136 mg/dl (70-99)
[2024-03-12 11:37] LABS: Glucose - Point of Care 111 mg/dl (70-99)
[2024-03-14 10:55] LABS: Glucose - Point of Care 105 mg/dl (70-99)
[2024-03-14 11:32] LABS: Glucose - Point of Care 117 mg/dl (70-99)
== END 2024-03-26 23:59 | disposition home or self-care (01) ==
LOC: CRHB 11:51
PROVIDERS: ATTENDING PHYSICIAN Internal Medicine Cardiovascular Disease
DX: I70.711 Atherosclerosis of other type of bypass graft(s) of the extremities with intermittent claudication, right leg (principal); Z95.1 Presence of aortocoronary bypass graft; I25.10 Atherosclerotic heart disease of native coronary artery without angina pectoris; Z95.5 Presence of coronary angioplasty implant and graft
CPT/HCPCS: 82962; G0422; G0423

== ENCOUNTER 2024-04-27 11:37 | Outpatient (RCR) | payer MEDICARE, OTHER, SELFPAY | END 2024-04-27 23:59 | disposition home or self-care (01) | LOC: CRHB 11:37 | PROVIDERS: ATTENDING PHYSICIAN Internal Medicine Cardiovascular Disease | DX: I25.10 Atherosclerotic heart disease of native coronary artery without angina pectoris (principal); Z95.1 Presence of aortocoronary bypass graft; I70.711 Atherosclerosis of other type of bypass graft(s) of the extremities with intermittent claudication, right leg | CPT/HCPCS: G0422; G0423 ==

== ENCOUNTER → 2024-05-15 09:31 | Outpatient (REF) | payer MEDICARE, OTHER, SELFPAY | LOC: RAD 09:31 | PROVIDERS: ATTENDING PHYSICIAN Surgery Vascular Surgery; FAMILY PHYSICIAN Family Medicine | DX: I77.9 Disorder of arteries and arterioles, unspecified (principal) | CPT/HCPCS: 93922; 93925 ==

== ENCOUNTER 2024-05-21 11:17 | Outpatient (RCR) | payer MEDICARE, OTHER, SELFPAY | END 2024-05-21 23:59 | disposition home or self-care (01) | LOC: CRHB 11:17 | PROVIDERS: ATTENDING PHYSICIAN Internal Medicine Cardiovascular Disease | DX: I25.10 Atherosclerotic heart disease of native coronary artery without angina pectoris (principal); Z95.1 Presence of aortocoronary bypass graft | CPT/HCPCS: G0422; G0423 ==

== ENCOUNTER 2024-05-28 11:30 | Outpatient (RCR) | payer MEDICARE, OTHER, SELFPAY | END 2024-05-28 23:59 | disposition home or self-care (01) | LOC: CRHB 11:30 | PROVIDERS: ATTENDING PHYSICIAN Internal Medicine Cardiovascular Disease | DX: I25.10 Atherosclerotic heart disease of native coronary artery without angina pectoris (principal); Z95.1 Presence of aortocoronary bypass graft | CPT/HCPCS: G0422; G0423 ==

== ENCOUNTER → 2024-12-05 10:33 | Outpatient (REF) | payer MEDICARE, OTHER, SELFPAY | LOC: RAD 10:33 | PROVIDERS: ATTENDING PHYSICIAN Surgery Vascular Surgery; FAMILY PHYSICIAN Family Medicine | DX: I77.9 Disorder of arteries and arterioles, unspecified (principal) | CPT/HCPCS: 93922; 93925 ==

== ENCOUNTER → 2025-06-11 10:41 | Outpatient (REF) | payer MEDICARE, OTHER, SELFPAY | LOC: RAD 10:41 | PROVIDERS: ATTENDING PHYSICIAN Registered Nurse; FAMILY PHYSICIAN Family Medicine | DX: I77.9 Disorder of arteries and arterioles, unspecified (principal) | CPT/HCPCS: 93922; 93925 ==

== ENCOUNTER → 2025-10-03 13:40 | Outpatient (REF) | payer MEDICARE, OTHER, SELFPAY | LOC: DHVS 13:40 | PROVIDERS: ATTENDING PHYSICIAN Surgery Vascular Surgery; FAMILY PHYSICIAN Family Medicine | DX: I77.9 Disorder of arteries and arterioles, unspecified (principal) | CPT/HCPCS: 93922 ==